=== PATIENT | male | born 1950 | race Caucasian/White ===

== ENCOUNTER 2016-12-25 14:34 | Emergency (ER) | payer MEDICARE, MEDICAID ==
[~2016-12-25] VITALS: Ht 167.6 cm; Wt 87.6 kg
[~2016-12-25 14:34] MED LIST: ALPR.25T; APIX5TAB PO; ASP81CT; CLOP75TA PO; DILT180C PO; GABA100C PO; GLBR5T PO; LIDOCAINE 1% INJ 20 ML (XYLOCAINE) VIAL ONE; LISI-594 PO; LOSA25TA21 PO; MAGN400C PO; MTF500T PO; NTR.4SL SL; PNT40TEC; RNT150T; ROSU5TAB9 PO; SCR1T1; SITA100T PO; TAMS0.4C2 PO
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
[2016-12-25] MEDS ORDERED: TAMS0.4C2 (15:22)
[2016-12-25] MEDS ORDERED: CLOP75TA28 (15:22)
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
[2016-12-25 16:06] LABS: BASOPHILS % (AUTO) 0 % (0-10); EOSINOPHILS # (AUTO) 0.1 10^3/uL (0.0-0.3); EOSINOPHILS % (AUTO) 1 % (0-10); LYMPHOCYTES # (AUTO) 1.8 X 10^3 (1.0-4.0); LYMPHOCYTES % (AUTO) 22 % (12-44); MEAN CORPUSCULAR HEMOGLOBIN 28 PG (25-34); MEAN CORPUSCULAR HGB CONC 34 G/DL (32-36); MEAN CORPUSCULAR VOLUME 83 FL (80-99); MEAN PLATELET VOLUME 11.9 FL (7.4-10.4); MONOCYTES # (AUTO) 0.7 X 10^3 (0.0-1.0); MONOCYTES % (AUTO) 8 % (0-12); NEUTROPHILS # (AUTO) 5.7 X 10^3 (1.8-7.8); NEUTROPHILS % (AUTO) 68 % (42-75); PLATELET COUNT 309 10^3/uL (130-400); RED BLOOD COUNT 4.69 10^6/uL (4.35-5.85); RED CELL DISTRIBUTION WIDTH 13.8 % (10.0-14.5); WHITE BLOOD COUNT 8.3 10^3/uL (4.3-11.0)
[2016-12-25] MEDS ORDERED: AMOX-355 PO (16:07)
[2016-12-25] MEDS ORDERED: HYDROcodone/APAP 5 MG/325 MG (LORTAB) TAB PO ONE (16:30)
[2016-12-25 18:03] VITALS: BP 171/97
--- OUTSIDE RECORDS SUMMARY | 2016-12-27 16:26 | XMS REPORT | Continuity of Care Document ---
Demographics Preferred Language Unknown Marital Status Unknown Lutheran Affiliation Unknown Race Unknown Ethnic Group Unknown Author Author [facility] Address Unknown Phone Unavailable Allergies Medications Problems Date Dx Coded Attending Type Code Diagnosis Diagnosed By 10/31/2012 110.5 DERMATOPHYTOSIS OF THE BODY 10/31/2012 356.9 UNSPECIFIED IDIOPATHIC PERIPHERAL NEUROPATHY Procedures Results Encounters ACCT No. Visit Date/Time Discharge Status Pt. Type Provider Facility Loc./Unit Complaint [id number] 10/31/2012 16:07:00 Document Registration
== END 2016-12-25 18:03 | disposition home or self-care (01) ==
LOC: EDUNIT# 14:34 → ER 14:36
DX: S01.01XA Laceration without foreign body of scalp, initial encounter (principal); I11.9 Hypertensive heart disease without heart failure; I21.3 ST elevation (STEMI) myocardial infarction of unspecified site; I25.10 Atherosclerotic heart disease of native coronary artery without angina pectoris; E11.9 Type 2 diabetes mellitus without complications; F32.9 Major depressive disorder, single episode, unspecified; V49.40XA Driver injured in collision with unspecified motor vehicles in traffic accident, initial encounter; Y92.410 Unspecified street and highway as the place of occurrence of the external cause; Z79.84 Long term (current) use of oral hypoglycemic drugs; Z95.5 Presence of coronary angioplasty implant and graft
CPT/HCPCS: 12015; 13132; 36415; 70450; 71010; 72125; 85025

== ENCOUNTER 2016-12-31 13:00 | Emergency (ER) | payer OTHER, MEDICARE, MEDICAID ==
[~2016-12-31] VITALS: Ht 177.8 cm; Wt 90.7 kg
[~2016-12-31 13:00] MED LIST changes: +AMOX-355 PO; +CLOP75TA28; -LIDOCAINE 1% INJ 20 ML (XYLOCAINE) VIAL ONE; +TAMS0.4C2
[2016-12-31 13:20] VITALS: BP 121/78
--- OUTSIDE RECORDS SUMMARY | 2016-12-31 23:52 | XMS REPORT | Continuity of Care Document ---
Demographics Preferred Language Unknown Marital Status Unknown Sabianist Affiliation Unknown Race Unknown Ethnic Group Unknown Author Author [facility] Address Unknown Phone Unavailable Allergies Medications Problems Date Dx Coded Attending Type Code Diagnosis Diagnosed By 10/31/2012 110.5 DERMATOPHYTOSIS OF THE BODY 10/31/2012 356.9 UNSPECIFIED IDIOPATHIC PERIPHERAL NEUROPATHY Procedures Results Encounters ACCT No. Visit Date/Time Discharge Status Pt. Type Provider Facility Loc./Unit Complaint [id number] 10/31/2012 16:07:00 Document Registration
== END 2016-12-31 13:20 | disposition home or self-care (01) ==
LOC: EDUNIT# 13:00 → ER 13:02
DX: Z48.02 Encounter for removal of sutures (principal)

== ENCOUNTER → 2017-09-16 | Outpatient (CLI) | payer MEDICARE, OTHER ==
[~2017-09-16] MED LIST changes: +ROSU5TAB11 PO; -ROSU5TAB9 PO
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
== END ==
LOC: RAD 08:21
PROVIDERS: ATTEND Surgery
DX: R10.11 Right upper quadrant pain (principal)
CPT/HCPCS: 36415; 76705; 82533; 83835

== ENCOUNTER → 2017-09-25 | Outpatient (CLI) | payer MEDICARE, OTHER | LOC: LAB 15:00 | PROVIDERS: ATTEND Surgery | DX: E27.9 Disorder of adrenal gland, unspecified (principal); I10 Essential (primary) hypertension; R53.83 Other fatigue; R10.11 Right upper quadrant pain; R10.12 Left upper quadrant pain; R10.32 Left lower quadrant pain | CPT/HCPCS: 36415; 82088 ==

== ENCOUNTER → 2017-10-07 | Outpatient (CLI) | payer MEDICARE, OTHER | LOC: PREOP 05:50 | PROVIDERS: ATTEND Surgery | DX: Z01.818 Encounter for other preprocedural examination (principal); Z12.11 Encounter for screening for malignant neoplasm of colon ==

== ENCOUNTER 2017-10-14 08:22 | Day surgery (SDC) | payer MEDICARE, OTHER ==
[~2017-10-14] VITALS: Ht 177.8 cm; Wt 90.8 kg
[2017-10-14] MEDS ORDERED: NS IV 500 ML 500 ML ONE (08:33)
[2017-10-14] MEDS ORDERED: NS IV 500 ML 500 ML IV ONE (08:45)
[2017-10-14] MEDS ORDERED: NS IV 500 ML 500 ML IV SCH (08:45)
[2017-10-14] MEDS ORDERED: fentaNYL INJECTION 100 MCG/2 ML AMP IVP PRN (08:45)
[2017-10-14] MEDS ORDERED: MIDAZOLAM 2 MG/2 ML (VERSED) VIAL IVP PRN (08:45)
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
--- NOTE | 2017-10-14 08:57 | Conscious Sedation/ASA ---
Conscious Sedation Pre-Proced Time Reviewed: 08:57 ASA Class: 2 Airway Mallampati Classification: ([place] appropriate class) I. II. III, IV Lungs Heart ASA score ASA 1: a normal healthy patient ASA 2: a patient with a mild systemic disease (mid diabetes, controlled hypertension, obesity ASA 3: a patient with a severe systemic disease that limits activity (angina , COPD, prior Myocardial infarction) ASA 4: a patient with an incapacitating disease that is a constant threat to life (CHF, renal failure) ASA 5: a moribund patient not expected to survive 24 hrs. (ruptured aneurysm) ASA 6: a declared brain patient whose organs are being harvested. For emergent operations, add the letter E after the classification Grade 2 Sedation Plan: Discussed options with patient/fam Note The patient is an appropriate candidate to undergo the planned procedure, sedation, and anesthesia. The patient immediately re-assessed prior to indication. SILVANA WILSON MD Oct 14, 2017 8:57 am
[2017-10-14] MEDS ORDERED: LOSA50TA36 PO (09:11)
[2017-10-14] MEDS ORDERED: INSU100V5 SQ (09:14)
[2017-10-14] MEDS ORDERED: DILT180C54 PO (09:14)
[2017-10-14] MEDS ORDERED: ASPI-999 PO (09:14)
[2017-10-14] MEDS ORDERED: fentaNYL INJECTION 100 MCG/2 ML AMP ONE ×2 (10:10)
[2017-10-14] MEDS ORDERED: MIDAZOLAM 2 MG/2 ML (VERSED) VIAL ONE ×3 (10:11)
[2017-10-14] MEDS: fentaNYL INJECTION 100 MCG/2 ML AMP IV PRN ×2 (10:22→10:26)
[2017-10-14] MEDS: MIDAZOLAM 2 MG/2 ML (VERSED) VIAL IV PRN ×3 (10:25→10:30)
--- NOTE | 2017-10-14 10:52 | Endo Procedure Record ---
Endo Procedure Report Date of Procedure Last Colonoscopy: No Oct 14, 2017 Surgeon (s) SILVANA WILSON MD Post Procedure/Op Diagnosis Poor bowel prep. Sigmoid diverticulosis Procedure Performed Colonoscopy to cecum Description of Procedure Anesthesia Type: Conscious Sedation Specimen(s) collected/removed none Description of the Procedure Indication for the procedure: This gentleman came in for colonoscopy for screening purposes and to investigate left-sided abdominal pain. Informed consent was obtained after reviewing the procedure in detail. Description of the procedure: He was placed in left lateral decubitus position and his vital signs were monitored. Conscious sedation was achieved using Versed and fentanyl. Digital rectal examination was unremarkable. The colonoscope was then introduced into the rectum and advanced all the way up to the cecum The quality of bowel preparation was rather suboptimal. I was however able to irrigate the mucosa and suction the liquid fecal material, to complete the examination. The scope was then withdrawn slowly and the mucosa examined in a systematic fashion. Finding: Sigmoid diverticulosis No polyps were found He tolerated the procedure well and was taken back to the nursing area in a stable condition. Impression: Screening colonoscopy. No polyps Sigmoid diverticulosis. Copies To: TRENA OCHOA XAVIER M MD Oct 14, 2017 10:52 am
--- NOTE | 2017-10-14 10:53 | Discharge Inst-Simple/Standard ---
Discharge Inst-Standard Discharge Medications New, Converted or Re-Newed RX: Other Patient Instructions/Follow Up Plan of Care/Instructions/FU: Repeat colonoscopy in 10 years Activity as Tolerated: Yes Discharge Diet: No Restrictions SILVANA WILSON MD Oct 14, 2017 10:53 am
[2017-10-14 11:20] VITALS: BP 145/86
[2017-10-14 11:50] VITALS: BP 143/86
[2017-10-14 13:21] VITALS: BP 148/86
[2017-10-14 13:29] VITALS: BP 148/86
== END 2017-10-14 11:55 | disposition home or self-care (01) ==
LOC: ENDO 08:22
PROVIDERS: ATTEND Surgery
DX: Z12.11 Encounter for screening for malignant neoplasm of colon (principal); K57.30 Diverticulosis of large intestine without perforation or abscess without bleeding; I25.10 Atherosclerotic heart disease of native coronary artery without angina pectoris; E78.00 Pure hypercholesterolemia, unspecified; I10 Essential (primary) hypertension; I25.2 Old myocardial infarction; Z95.0 Presence of cardiac pacemaker; Z95.5 Presence of coronary angioplasty implant and graft; F17.210 Nicotine dependence, cigarettes, uncomplicated; K21.9 Gastro-esophageal reflux disease without esophagitis; E11.9 Type 2 diabetes mellitus without complications; Z79.84 Long term (current) use of oral hypoglycemic drugs; Z79.899 Other long term (current) drug therapy

== ENCOUNTER 2022-06-13 12:37 | Inpatient (IN) | payer MEDICARE, OTHER, MEDICAID ==
[~2022-06-13] VITALS: Ht 167.7 cm; Wt 94.3 kg
[~2022-06-13 12:37] MED LIST changes: +ASPI-999 PO; -DILT180C PO; +DILT180C54 PO; +DILT180C85 PO; +INSU100V5 SQ; -LOSA25TA21 PO; +LOSA25TA41 PO; +LOSA50TA63 PO; -ROSU5TAB11 PO; +ROSU5TAB13 PO
[2022-06-13] MEDS ORDERED: ONDANSETRON 4 MG (ZOFRAN) ORAL DISSOLVE TAB PO PRN (14:00)
[2022-06-13] MEDS ORDERED: MELATONIN 3 MG TABLET PO PRN (14:00)
[2022-06-13] MEDS ORDERED: diphenhydrAMINE 25 MG TAB (BENADRYL) PO PRN (14:00)
[2022-06-13] MEDS ORDERED: MILK OF MAGNESIA 400 MG/5 ML 30 ML UDC PO PRN (14:00)
[2022-06-13] MEDS ORDERED: polyethylene glycoL POWDER 17 GM (MIRALAX) PACK PO PRN (14:00)
[2022-06-13] MEDS ORDERED: ONDANSETRON 4 MG/2 ML (SDV) Z0FRAN IV PRN (14:00)
[2022-06-13] MEDS ORDERED: NS IV 1000 ML 1,000 ML IV SCH (14:00)
[2022-06-13] MEDS ORDERED: LACTULOSE SYRUP 10GM/15ML (ENULOSE) 30ML UDC PO PRN (14:00)
[2022-06-13] MEDS ORDERED: diphenhydrAMINE 50 MG/ML INJ (BENADRYL) IVP PRN (14:00)
[2022-06-13] MEDS ORDERED: CALCIUM CARBONATE 500 MG (TUMS) TAB.CHEW PO PRN (14:00)
[2022-06-13] MEDS ORDERED: ANTACID SUSP 30 ML UDC (MYLANTA) PO PRN (14:00)
[2022-06-13] MEDS ORDERED: NIRMATRELVIR/RITONAVIR (PAXLOVID) TABLET PO SCH ×2 (14:00→18:00)
[2022-06-13] MEDS ORDERED: ACETAMINOPHEN 325 MG TABLET PO PRN (14:00)
[2022-06-13] MEDS ORDERED: BISACODYL 10 MG SUPP (DULCOLAX) PR PRN (14:00)
[2022-06-13] MEDS ORDERED: RELABEL FOR HOME USE MC SCH (15:15)
[2022-06-13] MEDS ORDERED: DILT300C51 PO (16:26)
[2022-06-13] MEDS ORDERED: SITA100T12 PO (16:26)
[2022-06-13] MEDS ORDERED: ASPI-999 PO (16:26)
[2022-06-13] MEDS ORDERED: LATA7.5D OU (16:26)
[2022-06-13] MEDS ORDERED: METF-399 PO (16:26)
[2022-06-13] MEDS ORDERED: BRIMON0.2 OD (16:26)
[2022-06-13] MEDS ORDERED: FURO40TA4 PO (16:26)
[2022-06-13] MEDS ORDERED: LOSA100T57 PO (16:26)
[2022-06-13] MEDS ORDERED: ATOR20TA66 PO (16:26)
[2022-06-13] MEDS ORDERED: DORZ10DR22 OU (16:26)
[2022-06-13] MEDS ORDERED: GABA300C PO (16:26)
[2022-06-13] MEDS ORDERED: RIVA20TA PO (16:26)
[2022-06-13] MEDS ORDERED: GLBR5T PO (16:26)
[2022-06-13] MEDS ORDERED: INSU100I29 SQ (16:26)
[2022-06-13] MEDS ORDERED: PANT40TA52 PO (16:26)
[2022-06-13 16:36] VITALS: BP 163/70
--- NOTE | 2022-06-13 16:56 | History & Physical ---
LETTY ALEMAN 06/13/226: History of Present Illness History of Present Illness Reason for visit/HPI Manuel Cochran, goes by Martin, is a 72yo M who was admitted to the [facility] 4th floor 06/13/22 from [facility] with a current chief complaint of malaise/myalgia, sore throat, and back pain. Martin was initially intended to be brought to the inpatient rehab unit for S/P lumbar surgery, but prior to discharge he tested positive for Covid. He was then brought into room 433 to be quarantined, and continually monitored. On talking with patient he was fatigued and oriented x3 but very frustrated, he hasn't had much education and in conversation is mildly obtuse. Multple times in conversation patient appeared to almost fall asleep and start snoring. He doesnt appear to be toxic, and denies any c/o SOB, CP, fevers, chills, or naseua. Date of Admission Jun 13, 2022 at 15:40 I consulted on this patient on 06/13/22 16:40 Attending Physician Dav Cifuentes DO Admitting Physician Admitting Physician: Sherine Ennis DO Attending Physician: Shernie Ennis DO Consult Allergies and Home Medications Allergies Coded Allergies: No Known Drug Allergies (Verified , 01/05/08) Patient Home Medication List Aspirin (Aspirin) 81 Mg Tab.chew, 81 MG PO DAILY, (Reported) Entered as Reported by: MARY WALTER on 06/13/221625 Last Action: Held Atorvastatin Calcium (Atorvastatin Calcium) 20 Mg Tablet, 20 MG PO DAILY, (Reported) Entered as Reported by: MARY WALTER on 06/13/221625 Last Action: Held Brimonidine Tartrate (Brimonidine Tartrate) 0.2 % Btl, 1 DROP OD BID, (Reported) Entered as Reported by: MARY WALTER on 06/13/221625 Last Action: Continued Diltiazem HCl (Diltiazem 24Hr Cd) 300 Mg Cap.er.24h, 300 MG PO DAILY, (Reported) Entered as Reported by: MARY WALTER on 06/13/221625 Last Action: Continued Dorzolamide HCl/Timolol Maleat (Cosopt Eye Drops) 22.3 Mg-6.8 Mg/Ml Drops, 1 DROPS OU BID, (Reported) Entered as Reported by: MARY WALTER on 06/13/221625 Last Action: Continued Furosemide (Furosemide) 40 Mg Tablet, 40 MG PO DAILY, (Reported) Entered as Reported by: MARY WALTER on 06/13/221625 Last Action: Held Gabapentin (Neurontin) 300 Mg Capsule, 300 MG PO BID, (Reported) Entered as Reported by: MARY WALTER on 06/13/221625 Last Action: Continued Glyburide (Glyburide) 5 Mg Tablet, 10 MG PO BID WITH MEALS, (Reported) Entered as Reported by: MARY WALTER on 06/13/221625 Last Action: Held Insulin Detemir (Levemir Flextouch) 100 Unit/Ml (3 Ml) Insuln.pen, 30 UNIT SQ DAILY PRN for HYPERGLYCEMIA, (Reported) Entered as Reported by: MARY WALTER on 06/13/221625 Last Action: Held Latanoprost/Pf (Latanoprost 0.005% Eye Drop) 0.005 % Drops, 1 DROP OU HS, (Reported) Entered as Reported by: MARY WALTER on 06/13/221625 Last Action: Converted Losartan Potassium (Losartan Potassium) 100 Mg Tablet, 100 MG PO DAILY, (Reported) Entered as Reported by: MARY WALTER on 06/13/221625 Last Action: Held Metformin HCl (Metformin HCl) 1,000 Mg Tablet, 1,000 MG PO BID, (Reported) Entered as Reported by: MARY WALTER on 06/13/221625 Last Action: Held Pantoprazole Sodium (Pantoprazole Sodium) 40 Mg Tablet.dr, 40 MG PO BID, (Reported) Entered as Reported by: MARY WALTER on 06/13/221625 Last Action: Continued Rivaroxaban (Xarelto) 20 Mg Tablet, 20 MG PO 1800 W/SUPPER, (Reported) Entered as Reported by: MARY WALTER on 06/13/221625 Last Action: Held Sitagliptin Phosphate (Januvia) 100 Mg Tablet, 100 MG PO DAILY, (Reported) Entered as Reported by: MARY WALTER on 06/13/221625 Last Action: Held Discontinued Medications Aspirin (Aspirin) 81 Mg Tab.chew, 81 MG PO DAILY, (Reported) Discontinued Reason: Duplicate Order Entered as Reported by: ERICKSON Duckworth ELIO on 10/14/17913 Last Action: Discontinued Clopidogrel Bisulfate (Clopidogrel) 75 Mg Tablet, (Reported) Discontinued Reason: Duplicate Order Entered as Reported by: NURIA CHANDLER on 12/25/16 152 Last Action: Discontinued Diltiazem HCl (Cartia Xt) 180 Mg Cap.er.24h, 180 MG PO DAILY, (Reported) Discontinued Reason: Duplicate Order Entered as Reported by: ERICKSON GOMEZBALDO on 10/14/17913 Last Action: Discontinued Insulin Determir (Levemir) 1,000 Units/10 Ml Soln, 10 UNITS SQ DAILY, (Reported) Discontinued Reason: Duplicate Order Entered as Reported by: ERICKSON GOMEZBALDO on 10/14/17913 Last Action: Discontinued Losartan Potassium (Losartan Potassium) 50 Mg Tablet, 50 MG PO DAILY, (Reported) Discontinued Reason: Duplicate Order Entered as Reported by: ERICKSON GOMEZYOSVANY on 10/14/17910 Last Action: Discontinued Metformin Hcl (Metformin 500 Mg) 500 Mg Tablet, 1,000 MG PO BID, (Reported) Discontinued Reason: Duplicate Order Entered as Reported by: ARASH HAGER on 01/05/08 1417 Last Action: Discontinued Pantoprazole Sodium (Protonix) 40 Mg Tablet., (Reported) Discontinued Reason: Duplicate Order Entered as Reported by: ARASH HAGER on 02/03/08 1402 Last Action: Discontinued Sitagliptin Phosphate (Januvia) 100 Mg Tablet, 1 EACH PO DAILY, (Reported) Discontinued Reason: Duplicate Order Entered as Reported by: TERESA JIN on 10/20/12 0909 Last Action: Discontinued Tamsulosin HCl (Tamsulosin HCl) 0.4 Mg Cap.er.24h, (Reported) Discontinued Reason: Duplicate Order Entered as Reported by: NURIA CHANDLER on 12/25/16 152 Last Action: Discontinued Past Mgskhip-Ggxwsi-Oicdrf Hx Patient Social History Marrital Status: single Number of Children: 0 Employed/Student: retired Tobacco Use?: No Smoking Status: Unknown if Ever Smoked Use of E-Cig and/or Vaping dev: No Substance use?: No Alcohol Use?: No Immunizations Up To Date Tetanus Booster (TDap): Less Than 5 Years Hepatitis A: No Hepatitis B: No PED Vaccines UTD: No Seasonal Allergies Seasonal Allergies: No Current Status Primary Language: Hungarian Past Medical History Surgeries: Coronary Stent Currently Using CPAP: No Currently Using BIPAP: No Coronary Artery Disease, Heart Attack, High Cholesterol, Hypertension Sexually Transmitted Disease: No HIV/AIDS: No Prostate Problems Gastroesophageal Reflux Diabetes, Non-Insulin dep Loss of Vision: Denies Depression Blood Disorders: No Adverse Reaction/Blood Tranf: No Family Medical History Cardiovascular disease 19 FATHER G8 BROTHER G8 BROTHER Diabetes mellitus 19 MOTHER Review of Systems Constitutional: see HPI, malaise, weakness EENTM: throat pain Respiratory: no symptoms reported Cardiovascular: no symptoms reported Gastrointestinal: no symptoms reported Genitourinary: no symptoms reported Musculoskeletal: back pain, muscle pain Skin: no symptoms reported Psychiatric/Neurological: No Symptoms Reported Physical Exam Vital Signs Capillary Refill : Height, Weight, BMI Height: 5'10.00" Weight: 200lbs. 1.6oz. [id number]; 28.7 BMI Method:Estimated Respiratory: Chest Non Tender, No Accessory Muscle Use, No Respiratory Distress, Crackles Cardiovascular: Regular Rate, Rhythm, No Gallop, No JVD, No Murmur, Normal Peripheral Pulses Back: Decreased Range of Motion, Vertebral Tenderness Assessment/Plan Assessment and Plan A: Covid infection S/P lumbar surgery back pain malaise/myalgia DM P: Rest/continue monitoring OT/PT therapy Pain regimen serum glucose regulation Clinical Quality Measures DVT/VTE Risk/Contraindication: Contraindications-Pharm: Other *list below* Other: spinal surgery ENNISGILBERT VIEIRAAgustina FIERRO 06/14/22 0456: History of Present Illness History of Present Illness Reason for visit/HPI CC: COVID infection following lumbar spine surgery HPI: This is a patient known to me from [place] who had a slow recovery from L- spine surgery requiring skilled eval which required a COVID swab which was positive so he was moved to [facility] in [facility] for ARU admit. Date of Admission 06/13 Date Seen by a Provider: Jun 13, 2022 Time Seen by a Provider: 16:00 Allergies and Home Medications Allergies Coded Allergies: No Known Drug Allergies (Verified , 01/05/08) Patient Home Medication List Home Medication List Reviewed: Yes Aspirin (Aspirin) 81 Mg Tab.chew, 81 MG PO DAILY, (Reported) Entered as Reported by: MARY WALTER on 06/13/221625 Last Action: Held Atorvastatin Calcium (Atorvastatin Calcium) 20 Mg Tablet, 20 MG PO DAILY, (Reported) Entered as Reported by: MARY WALTER on 06/13/221625 Last Action: Held Brimonidine Tartrate (Brimonidine Tartrate) 0.2 % Btl, 1 DROP OD BID, (Reported) Entered as Reported by: MARY WALTER on 06/13/221625 Last Action: Continued Diltiazem HCl (Diltiazem 24Hr Cd) 300 Mg Cap.er.24h, 300 MG PO DAILY, (Reported) Entered as Reported by: MARY WALTER on 06/13/221625 Last Action: Continued Dorzolamide HCl/Timolol Maleat (Cosopt Eye Drops) 22.3 Mg-6.8 Mg/Ml Drops, 1 DROPS OU BID, (Reported) Entered as Reported by: MARY WALTER on 06/13/221625 Last Action: Continued Furosemide (Furosemide) 40 Mg Tablet, 40 MG PO DAILY, (Reported) Entered as Reported by: MARY WALTER on 06/13/221625 Last Action: Held Gabapentin (Neurontin) 300 Mg Capsule, 300 MG PO BID, (Reported) Entered as Reported by: MARY WALTER on 06/13/221625 Last Action: Continued Glyburide (Glyburide) 5 Mg Tablet, 10 MG PO BID WITH MEALS, (Reported) Entered as Reported by: MARY WALTER on 06/13/221625 Last Action: Held Insulin Detemir (Levemir Flextouch) 100 Unit/Ml (3 Ml) Insuln.pen, 30 UNIT SQ DAILY PRN for HYPERGLYCEMIA, (Reported) Entered as Reported by: MARY WALTER on 06/13/221625 Last Action: Held Latanoprost/Pf (Latanoprost 0.005% Eye Drop) 0.005 % Drops, 1 DROP OU HS, (Reported) Entered as Reported by: MARY WALTER on 06/13/221625 Last Action: Converted Losartan Potassium (Losartan Potassium) 100 Mg Tablet, 100 MG PO DAILY, (Reported) Entered as Reported by: MARY WALTER on 06/13/221625 Last Action: Held Metformin HCl (Metformin HCl) 1,000 Mg Tablet, 1,000 MG PO BID, (Reported) Entered as Reported by: MARY WALTER on 06/13/221625 Last Action: Held Pantoprazole Sodium (Pantoprazole Sodium) 40 Mg Tablet.dr, 40 MG PO BID, (Reported) Entered as Reported by: MARY WALTER on 06/13/221625 Last Action: Continued Rivaroxaban (Xarelto) 20 Mg Tablet, 20 MG PO 1800 W/SUPPER, (Reported) Entered as Reported by: MARY WALTER on 06/13/221625 Last Action: Held Sitagliptin Phosphate (Januvia) 100 Mg Tablet, 100 MG PO DAILY, (Reported) Entered as Reported by: MARY WALTER on 06/13/221625 Last Action: Held Discontinued Medications Aspirin (Aspirin) 81 Mg Tab.chew, 81 MG PO DAILY, (Reported) Discontinued Reason: Duplicate Order Entered as Reported by: ERICKSON BALLARD on 10/14/17913 Last Action: Discontinued Clopidogrel Bisulfate (Clopidogrel) 75 Mg Tablet, (Reported) Discontinued Reason: Duplicate Order Entered as Reported by: NURIA CHANDLER on 12/25/161521 Last Action: Discontinued Diltiazem HCl (Cartia Xt) 180 Mg Cap.er.24h, 180 MG PO DAILY, (Reported) Discontinued Reason: Duplicate Order Entered as Reported by: ERICKSON BALLARD on 10/14/17913 Last Action: Discontinued Insulin Determir (Levemir) 1,000 Units/10 Ml Soln, 10 UNITS SQ DAILY, (Reported) Discontinued Reason: Duplicate Order Entered as Reported by: ERICKSON BALLARD on 10/14/17913 Last Action: Discontinued Losartan Potassium (Losartan Potassium) 50 Mg Tablet, 50 MG PO DAILY, (Reported) Discontinued Reason: Duplicate Order Entered as Reported by: ERICKSON BALLARD on 10/14/17910 Last Action: Discontinued Metformin Hcl (Metformin 500 Mg) 500 Mg Tablet, 1,000 MG PO BID, (Reported) Discontinued Reason: Duplicate Order Entered as Reported by: ARASH HAGER on 01/05/08 1417 Last Action: Discontinued Pantoprazole Sodium (Protonix) 40 Mg Tablet., (Reported) Discontinued Reason: Duplicate Order Entered as Reported by: ARASH HAGER on 02/03/08 1402 Last Action: Discontinued Sitagliptin Phosphate (Januvia) 100 Mg Tablet, 1 EACH PO DAILY, (Reported) Discontinued Reason: Duplicate Order Entered as Reported by: TERESA JIN on 10/20/12 0909 Last Action: Discontinued Tamsulosin HCl (Tamsulosin HCl) 0.4 Mg Cap.er.24h, (Reported) Discontinued Reason: Duplicate Order Entered as Reported by: NURIA CHANDLER on 12/25/16 1522 Last Action: Discontinued Past Vvjdeuv-Gxyuxl-Mpqdty Hx Patient Social History Marrital Status: cohabiting Employed/Student: retired Tobacco Use?: No Use of E-Cig and/or Vaping dev: No Substance use?: No Past Medical History Surgeries: Orthopedic High Cholesterol, Hypertension Diabetes, Insulin dep Family Medical History Cardiovascular disease 19 FATHER G8 BROTHER G8 BROTHER Diabetes mellitus 19 MOTHER Review of Systems Constitutional: see HPI, malaise, weakness EENTM: no symptoms reported Respiratory: no symptoms reported Cardiovascular: no symptoms reported Gastrointestinal: no symptoms reported Genitourinary: no symptoms reported Musculoskeletal: back pain Skin: no symptoms reported Psychiatric/Neurological: No Symptoms Reported All Other Systems Reviewed Negative Unless Noted: Yes Physical Exam General Appearance: No Apparent Distress, WD/WN, Chronically ill, Obese Eyes: Bilateral Eye Normal Inspection, Bilateral Eye PERRL, Bilateral Eye EOMI HEENT: PERRL/EOMI, Normal ENT Inspection, Pharynx Normal Neck: Full Range of Motion, Normal Inspection, Non Tender, Supple, Carotid Bruit Respiratory: Chest Non Tender, Lungs Clear, Normal Breath Sounds, No Accessory Muscle Use, No Respiratory Distress Cardiovascular: Regular Rate, Rhythm, No Edema, No Gallop, No JVD, No Murmur, Normal Peripheral Pulses Gastrointestinal: Normal Bowel Sounds, No Organomegaly, No Pulsatile Mass, Non Tender, Soft Back: Normal Inspection, Decreased Range of Motion, Muscle Spasm, Vertebral Tenderness Extremity: Normal Capillary Refill, Normal Inspection, Normal Range of Motion, Non Tender, No Calf Tenderness, No Pedal Edema Neurologic/Psychiatric: Alert, Oriented x3, medical doctor md II-XII Norm as Tested, Abnormal Gait, Depressed Affect, Motor Weakness (generalized) Skin: Normal Color, Warm/Dry Lymphatic: No Adenopathy Assessment/Plan Assessment and Plan Assessment: COVID infection Pneumonia bacterial type with elevated PCT s/p lumbar spine surgery DM with variable control Anemia Plan: IV abx DM Problems: (1) COVID Admission Diagnosis Admission Status: Inpatient Order (span 2 midnights) Reason for Inpatient Admission: covid with pNA Supervisory-Addendum Brief Verification & Attestation Participated in pt care: history, MDM, physical Personally performed: exam, history, MDM, supervision of care Care discussed with: Medical Student Procedures: n/a Results interpretation: Verified all documentation Verification and Attestation of Medical Student E/M Service A medical student performed and documented this service in my presence. I reviewed and verified all information documented by the medical student and made modifications to such information, when appropriate. I personally performed the physical exam and medical decision making. Sherine Ennis, Jun 14, 2022,04:56 LETTY ALEMAN Jun 13, 2022 16:56 SHERINE ENNIS DO Jun 14, 2022 04:56
--- NOTE | 2022-06-13 17:15 | Diagnostic Imaging Report ---
INDICATION: 72-year-old male with shortness of breath, inpatient, COVID pneumonia. COMPARISONS: 12/25/2016 FINDINGS: Single chest shows the cardiac contour to be upper limits of normal. There is a moderate central venous congestion. Few scattered 5 lobe alveolar infiltrates are seen but no confluent consolidations. There is no effusion or pneumothorax. Is a dual-chamber left-sided pacer. Soft tissues and bony thorax unremarkable. IMPRESSION: 1. Heart size upper limits of normal to borderline cardiomegaly with mild central venous congestion suggesting element of failure. 2. Few scattered 5 lobe alveolar infiltrates are seen but no confluent consolidations. There is no effusion or pneumothorax. 2. There is a dual-chamber left-sided pacer noted stable. Dictated by: Dictated on workstation # [id number]
[2022-06-13] MEDS: inSUlin ASPART (NovoLOG) 1 UNIT/0.01 ML (CHARGE PER UNIT) SC SCH ×2 (17:18→21:32)
[2022-06-13] MEDS ORDERED: amLODIPine 5 MG (NORVASC) TAB PO ONE (17:30)
[2022-06-13] MEDS: NIRMATRELVIR/RITONAVIR (PAXLOVID) TABLET PO SCH (17:40)
--- NOTE | 2022-06-13 18:09 | Diagnostic Imaging Report ---
INDICATION: PICC line placement. COMPARISON: Imaging from the same date TECHNIQUE: 2 radiographs of the chest dated 06/13/2022. FINDINGS: Interval placement of a left-sided PICC line. The distal tip is difficult to visualize secondary to overlying pacer leads and patient body habitus. The distal tip likely terminates near the cavoatrial junction. No pneumothorax. The cardiac silhouette is enlarged. Mild central pulmonary vascular congestion is again identified, similar to the prior examination. Lungs appear stable from the prior examination. No significant pleural effusion. No pneumothorax. No acute osseous abnormality. IMPRESSION: Interval placement of left-sided PICC line with the distal tip difficult to visualize though likely overlying the cavoatrial junction without pneumothorax. Persistent cardiomegaly with central pulmonary vascular congestion. Remainder of the examination appears similar. Dictated by: Dictated on workstation # [id number]
[2022-06-13 18:29] LABS: ABG BASE EXCESS -5.6 MMOL/L (-2.5-2.5); ABG OXYGEN SATURATION 91 % (94-100); ABG PCO2 35 MMHG (35-45); ABG PH 7.36 (7.37-7.43); ABG PO2 57 MMHG (79-93); ABG TCO2 20.2 MMOL/L (21.0-31.0)
[2022-06-13 18:30] LABS: BASOPHILS % (AUTO) 0 % (0-10); EOSINOPHILS # (AUTO) 0.1 10^3/uL (0.0-0.3); EOSINOPHILS % (AUTO) 1 % (0-10); HEMATOCRIT 28 % (40-54); HEMOGLOBIN 8.8 g/dL (13.3-17.7); LYMPHOCYTES # (AUTO) 1.5 10^3/uL (1.0-4.0); LYMPHOCYTES % (AUTO) 10 % (12-44); MEAN CORPUSCULAR HEMOGLOBIN 29 pg (25-34); MEAN CORPUSCULAR HGB CONC 32 g/dL (32-36); MEAN CORPUSCULAR VOLUME 91 fL (80-99); MEAN PLATELET VOLUME 11.9 fL (9.0-12.2); MONOCYTES # (AUTO) 1.7 10^3/uL (0.0-1.0); MONOCYTES % (AUTO) 12 % (0-12); NEUTROPHILS % (AUTO) 77 % (42-75); PLATELET COUNT 244 10^3/uL (130-400); WHITE BLOOD COUNT 14.3 10^3/uL (4.3-11.0)
[2022-06-13 18:34] LABS: ALLENS TEST YES-POS; INSPIRED O2 RA; VENTILATOR NO
[2022-06-13 18:38] LABS: ALBUMIN 2.9 GM/DL (3.2-4.5)
[2022-06-13 18:39] LABS: CHLORIDE 109 MMOL/L (98-107); POTASSIUM 4.7 MMOL/L (3.6-5.0); SODIUM 137 MMOL/L (135-145)
[2022-06-13 18:40] LABS: CALCIUM 8.2 MG/DL (8.5-10.1)
[2022-06-13 18:41] LABS: GLUCOSE 65 MG/DL (70-105); TOTAL PROTEIN 6.2 GM/DL (6.4-8.2)
[2022-06-13 18:42] LABS: CARBON DIOXIDE 21 MMOL/L (21-32)
[2022-06-13 18:43] LABS: BILIRUBIN,TOTAL 0.2 MG/DL (0.1-1.0)
[2022-06-13 18:44] LABS: ALKALINE PHOSPHATASE 63 U/L (40-136)
[2022-06-13 18:45] LABS: CREATININE SERUM 2.18 MG/DL (0.60-1.30); GFR ESTIMATED 32
[2022-06-13 18:46] LABS: BUN/CREATININE RATIO 20
[2022-06-13 18:47] LABS: ALANINE AMINOTRANSFERASE < 6 U/L (0-55)
[2022-06-13 19:24] LABS: BILIRUBIN,URINE NEGATIVE (NEGATIVE); CLARITY,URINE CLEAR; COLOR,URINE YELLOW; GLUCOSE, URINE (UA) NEGATIVE (NEGATIVE); KETONES,URINE NEGATIVE (NEGATIVE); LEUKOCYTE ESTERASE ,URINE NEGATIVE (NEGATIVE); NITRITE,URINE NEGATIVE (NEGATIVE); PH,URINE 5.5 (5-9); PROTEIN,URINE 1+ (NEGATIVE)
[2022-06-13 19:32] LABS: BACTERIA,URINE FEW /HPF; HYALINE CASTS, URINE 0-2 /LPF; WBC,URINE RARE /HPF
[2022-06-13 20:00] VITALS: BP 172/66
[2022-06-13] MEDS ORDERED: NON-FORMULARY MEDICATION 1 EA EA (Latanoprost/Pf (Latanoprost 0.005% Eye Drop) 1 DROP) OU SCH (21:00)
[2022-06-13] MEDS ORDERED: cloNIDine 0.1 MG (CATAPRES) TAB PO PRN (21:30)
[2022-06-13] MEDS ORDERED: DEXTROSE 50% 50 ML (IMS) SYR IV PRN (21:30)
[2022-06-13] MEDS ORDERED: D5 NS 1000 ML IV SOLUTION 1,000 ML IV ONE (21:36)
[2022-06-13] MEDS: D5 NS 1000 ML IV SOLUTION 1,000 ML IV SCH (21:45)
[2022-06-13] MEDS: DOXYCYCLINE INJECTION 100 MG in NS (IVPB) 100 ML IV SCH (21:47)
[2022-06-13] MEDS: BRIMONIDINE 0.2% (ALPHAGAN) OPHTH SOLN 5 ML BTL OD SCH (21:48)
[2022-06-13] MEDS: DOCUSATE SODIUM 100 MG (COLACE) CAP PO SCH (21:48)
[2022-06-13] MEDS: DORZOLAMIDE/TIMOLOL (COSOPT) 2-0.68% 10 ML BTL OU SCH (21:48)
[2022-06-13] MEDS: LATANOPROST 0.005% (XALATAN) OPHTH SOLN 2.5 ML OU SCH (21:48)
[2022-06-13] MEDS: SENNOSIDES 8.6 MG (SENOKOT) TAB PO SCH (21:48)
[2022-06-13] MEDS: PANTOPRAZOLE 40 MG (PROTONIX) TAB PO SCH (21:48)
[2022-06-13] MEDS: GABAPENTIN 300 MG (NEURONTIN) CAP PO SCH (21:48)
[2022-06-13] MEDS: RT-ALBUTEROL HFA 8.5 GM INHALER IH SCH (22:47)
[2022-06-14] VITALS: BP 166/69
[2022-06-14] MEDS: CEFEPIME INJECTION 1,000 MG in NS (IVPB) 50 ML IV SCH ×4 (00:16→22:10)
[2022-06-14] MEDS: RT-ALBUTEROL HFA 8.5 GM INHALER IH SCH ×4 (03:21→22:25)
[2022-06-14 04:00] VITALS: BP 169/68
[2022-06-14] MEDS: NIRMATRELVIR/RITONAVIR (PAXLOVID) TABLET PO SCH ×2 (05:27→17:31)
[2022-06-14 05:34] LABS: BASOPHILS % (AUTO) 0 % (0-10); EOSINOPHILS # (AUTO) 0.1 10^3/uL (0.0-0.3); EOSINOPHILS % (AUTO) 1 % (0-10); HEMATOCRIT 25 % (40-54); HEMOGLOBIN 8.1 g/dL (13.3-17.7); LYMPHOCYTES # (AUTO) 0.6 10^3/uL (1.0-4.0); LYMPHOCYTES % (AUTO) 5 % (12-44); MEAN CORPUSCULAR HEMOGLOBIN 29 pg (25-34); MEAN CORPUSCULAR HGB CONC 32 g/dL (32-36); MEAN CORPUSCULAR VOLUME 91 fL (80-99); MEAN PLATELET VOLUME 11.6 fL (9.0-12.2); MONOCYTES # (AUTO) 1.3 10^3/uL (0.0-1.0); MONOCYTES % (AUTO) 10 % (0-12); NEUTROPHILS # (AUTO) 10.8 10^3/uL (1.8-7.8); NEUTROPHILS % (AUTO) 84 % (42-75); PLATELET COUNT 194 10^3/uL (130-400); WHITE BLOOD COUNT 12.9 10^3/uL (4.3-11.0)
[2022-06-14 05:52] LABS: ALBUMIN 2.6 GM/DL (3.2-4.5); CHLORIDE 117 MMOL/L (98-107); POTASSIUM 4.1 MMOL/L (3.6-5.0); SODIUM 137 MMOL/L (135-145)
[2022-06-14 05:53] LABS: CALCIUM 7.5 MG/DL (8.5-10.1)
[2022-06-14 05:55] LABS: GLUCOSE 160 MG/DL (70-105); TOTAL PROTEIN 5.7 GM/DL (6.4-8.2)
[2022-06-14 05:56] LABS: CARBON DIOXIDE 17 MMOL/L (21-32)
[2022-06-14 05:57] LABS: BILIRUBIN,TOTAL 0.3 MG/DL (0.1-1.0)
[2022-06-14 05:58] LABS: ALKALINE PHOSPHATASE 52 U/L (40-136); CREATININE SERUM 2.08 MG/DL (0.60-1.30); GFR ESTIMATED 34
[2022-06-14 05:59] LABS: BUN/CREATININE RATIO 19
[2022-06-14 06:01] LABS: ALANINE AMINOTRANSFERASE < 6 U/L (0-55)
[2022-06-14 06:02] LABS: LYMPHOCYTES % (MANUAL) 5 %; MONOCYTES % (MANUAL) 5 %; NEUTROPHILS % (MANUAL) 90 %
[2022-06-14 06:03] LABS: ELLIPT/OVALOCYTES SLIGHT
[2022-06-14] MEDS: inSUlin ASPART (NovoLOG) 1 UNIT/0.01 ML (CHARGE PER UNIT) SC SCH ×6 (06:03→20:56)
[2022-06-14] MEDS: amLODIPine 5 MG (NORVASC) TAB PO SCH ×2 (06:45→09:17)
[2022-06-14 08:01] VITALS: BP 171/67
[2022-06-14] MEDS ORDERED: amLODIPine 5 MG (NORVASC) TAB PO SCH (09:00)
[2022-06-14] MEDS: GABAPENTIN 300 MG (NEURONTIN) CAP PO SCH ×2 (09:17→20:54)
[2022-06-14] MEDS: PANTOPRAZOLE 40 MG (PROTONIX) TAB PO SCH ×2 (09:17→20:54)
[2022-06-14] MEDS: DOCUSATE SODIUM 100 MG (COLACE) CAP PO SCH ×2 (09:17→20:56)
[2022-06-14] MEDS: SENNOSIDES 8.6 MG (SENOKOT) TAB PO SCH ×2 (09:17→20:56)
[2022-06-14] MEDS: DOXYCYCLINE INJECTION 100 MG in NS (IVPB) 100 ML IV SCH ×2 (09:17→20:54)
[2022-06-14] MEDS: DORZOLAMIDE/TIMOLOL (COSOPT) 2-0.68% 10 ML BTL OU SCH ×2 (09:46→20:57)
[2022-06-14] MEDS: BRIMONIDINE 0.2% (ALPHAGAN) OPHTH SOLN 5 ML BTL OD SCH ×2 (09:46→20:57)
--- NOTE | 2022-06-14 10:57 | Consultation-Cardiology ---
HPI-Cardiology Cardiology Consultation: Date of Consultation 06/14/22 Date of Admission 06/13/22 Attending Physician Dav Cifuentes DO Admitting Physician Admitting Physician: Sherine Barriga DO Attending Physician: Sherine Barriga DO Consulting Physician MANNIE VIVAR JR, MD HPI: Time Seen by a Provider: 10:51 Chief Complaint: REASON FOR CONSULTATION: History of coronary artery disease, atrial fibrillation and pacemaker. I had the pleasure of seeing Manuel on the medical/surgical unit at [facility] in [place], [place] today. He was transferred to our hospital for [facility] following lumbar disc surgery but he tested positive for COVID at the outside facility so he was sent to our inpatient unit. The patient reports that he cannot remember anything. I obtained the majority of the history from the outside records. He states that he sees a trim line worker in [place] but he does not know the name or where this person comes from. He denies chest discomfort, dyspnea at rest, paroxysmal nocturnal dyspnea, orthopnea, palpitations, lightheadedness, syncope, or ankle edema. However, because of his memory loss, his answers may not be completely reliable. Because of his cardiac history, a cardiology consultation was requested. Certain portions of this document may have been dictated utilizing voice recognition technology. Inherent to this technology, typographical and grammatical errors may exist. As much as I am diligent to identify and correct these mistakes, some errors may remain in the document. Review of Systems-Cardiology Review of Systems Other comments Review of 10 organ systems is as per the history of present illness, otherwise negative. However, as above, due to his short-term memory loss, his answers may not be reliable. All Other Systems Reviewed Negative Unless Noted: Yes OID-Feyecl-Ntfhyc Hx Patient Social History Marrital Status: cohabiting Number of Children: 0 Employed/Student: retired Smoking Status: Unknown if Ever Smoked Have you traveled recently?: No Alcohol Use?: No Pt feels they are or have been: No Immunizations Up To Date Tetanus Booster (TDap): Less than 5yrs Date of Influenza Vaccine: Apr 07, 2022 Past Medical History PMH As described under Assessment. Family Medical History Family History: Cardiovascular disease 19 FATHER G8 BROTHER G8 BROTHER Diabetes mellitus 19 MOTHER Allergies and Home Medications Allergies Coded Allergies: No Known Drug Allergies (Verified , 01/05/08) Patient Home Medication List Home Medication List Reviewed: Yes Aspirin (Aspirin) 81 Mg Tab.chew, 81 MG PO DAILY, (Reported) Entered as Reported by: MARY WALTER on 06/13/221625 Last Action: Held Atorvastatin Calcium (Atorvastatin Calcium) 20 Mg Tablet, 20 MG PO DAILY, (Reported) Entered as Reported by: MARY WALTER on 06/13/221625 Last Action: Held Brimonidine Tartrate (Brimonidine Tartrate) 0.2 % Btl, 1 DROP OD BID, (Reported) Entered as Reported by: MARY WALTER on 06/13/221625 Last Action: Continued Diltiazem HCl (Diltiazem 24Hr Cd) 300 Mg Cap.er.24h, 300 MG PO DAILY, (Reported) Entered as Reported by: MARY WALTER on 06/13/221625 Last Action: Continued Dorzolamide HCl/Timolol Maleat (Cosopt Eye Drops) 22.3 Mg-6.8 Mg/Ml Drops, 1 DROPS OU BID, (Reported) Entered as Reported by: MARY WALTER on 06/13/221625 Last Action: Continued Furosemide (Furosemide) 40 Mg Tablet, 40 MG PO DAILY, (Reported) Entered as Reported by: MARY WALTER on 06/13/221625 Last Action: Held Gabapentin (Neurontin) 300 Mg Capsule, 300 MG PO BID, (Reported) Entered as Reported by: MARY WALTER on 06/13/221625 Last Action: Continued Glyburide (Glyburide) 5 Mg Tablet, 10 MG PO BID WITH MEALS, (Reported) Entered as Reported by: MARY WALTER on 06/13/221625 Last Action: Held Insulin Detemir (Levemir Flextouch) 100 Unit/Ml (3 Ml) Insuln.pen, 30 UNIT SQ DAILY PRN for HYPERGLYCEMIA, (Reported) Entered as Reported by: MARY WALTER on 06/13/221625 Last Action: Held Latanoprost/Pf (Latanoprost 0.005% Eye Drop) 0.005 % Drops, 1 DROP OU HS, (Reported) Entered as Reported by: MARY WALTER on 06/13/221625 Last Action: Converted Losartan Potassium (Losartan Potassium) 100 Mg Tablet, 100 MG PO DAILY, (Rep orted) Entered as Reported by: MARY WALTER on 06/13/221625 Last Action: Held Metformin HCl (Metformin HCl) 1,000 Mg Tablet, 1,000 MG PO BID, (Reported) Entered as Reported by: MARY WALTER on 06/13/221625 Last Action: Held Pantoprazole Sodium (Pantoprazole Sodium) 40 Mg Tablet.dr, 40 MG PO BID, (Reported) Entered as Reported by: MARY WALTER on 06/13/221625 Last Action: Continued Rivaroxaban (Xarelto) 20 Mg Tablet, 20 MG PO 1800 W/SUPPER, (Reported) Entered as Reported by: MARY WALTER on 06/13/221625 Last Action: Held Sitagliptin Phosphate (Januvia) 100 Mg Tablet, 100 MG PO DAILY, (Reported) Entered as Reported by: MARY WALTER on 06/13/221625 Last Action: Held Discontinued Medications Aspirin (Aspirin) 81 Mg Tab.chew, 81 MG PO DAILY, (Reported) Discontinued Reason: Duplicate Order Entered as Reported by: ERICKSON BALLARD on 10/14/17913 Last Action: Discontinued Clopidogrel Bisulfate (Clopidogrel) 75 Mg Tablet, (Reported) Discontinued Reason: Duplicate Order Entered as Reported by: NURIA CHANDLER on 12/25/16 152 Last Action: Discontinued Diltiazem HCl (Cartia Xt) 180 Mg Cap.er.24h, 180 MG PO DAILY, (Reported) Discontinued Reason: Duplicate Order Entered as Reported by: ERICKSON BALLARD on 10/14/17913 Last Action: Discontinued Insulin Determir (Levemir) 1,000 Units/10 Ml Soln, 10 UNITS SQ DAILY, (Reported) Discontinued Reason: Duplicate Order Entered as Reported by: ERICKSON BALLARD on 10/14/17913 Last Action: Discontinued Losartan Potassium (Losartan Potassium) 50 Mg Tablet, 50 MG PO DAILY, (Reported) Discontinued Reason: Duplicate Order Entered as Reported by: ERICKSON BALLARD on 10/14/17910 Last Action: Discontinued Metformin Hcl (Metformin 500 Mg) 500 Mg Tablet, 1,000 MG PO BID, (Reported) Discontinued Reason: Duplicate Order Entered as Reported by: ARASH HAGER on 01/05/08 1417 Last Action: Discontinued Pantoprazole Sodium (Protonix) 40 Mg Tablet., (Reported) Discontinued Reason: Duplicate Order Entered as Reported by: ARASH HAGER on 02/03/08 1402 Last Action: Discontinued Sitagliptin Phosphate (Januvia) 100 Mg Tablet, 1 EACH PO DAILY, (Reported) Discontinued Reason: Duplicate Order Entered as Reported by: TERESA JIN on 10/20/12 0909 Last Action: Discontinued Tamsulosin HCl (Tamsulosin HCl) 0.4 Mg Cap.er.24h, (Reported) Discontinued Reason: Duplicate Order Entered as Reported by: NURIA CHANDLER on 12/25/16 1522 Last Action: Discontinued Exam Vital Signs Vital Signs Date Time Temp Pulse Resp B/P (MAP) Pulse Ox O2 Delivery O2 Flow Rate FiO2 06/14/22 11:14 36.4 64 18 171/67 (101) 97 06/14/22 09:05 Room Air 0.00 Physical Exam Due to the patient's COVID status, I spoke with the patient from the doorway. General: The patient is breathing spontaneously. HENT: Normocephalic. Atraumatic. Skin: There is no pallor. Neurologic: Oriented to person only. Cranial nerves III through XII grossly intact. Moving all 4 extremities. Psychiatric: Appears cooperative but with obvious short-term memory loss. Labs Laboratory Tests Test 06/13/22 17:01 06/13/22 17:56 06/13/22 18:11 06/13/22 18:15 Range/Units Glucometer 74 70-110 MG/DL Urine Color YELLOW Urine Clarity CLEAR Urine pH 5.5 5-9 Urine Specific [place] 1.020 1.016-1.022 Urine Protein 1+ H NEGATIVE Urine Glucose (UA) NEGATIVE NEGATIVE Urine Ketones NEGATIVE NEGATIVE Urine Nitrite NEGATIVE NEGATIVE Urine Bilirubin NEGATIVE NEGATIVE Urine Urobilinogen 0.2 < = 1.0 MG/DL Urine Leukocyte Esterase NEGATIVE NEGATIVE Urine RBC (Auto) TRACE-I H NEGATIVE Urine RBC NONE /HPF Urine WBC RARE /HPF Urine Squamous Epithelial Cells NONE /HPF Urine Crystals NONE /LPF Urine Bacteria FEW H /HPF Urine Casts PRESENT /LPF Urine Hyaline Casts 0-2 H /LPF Urine Mucus NEGATIVE /LPF Urine Culture Indicated YES White Blood Count 14.3 H 4.3-11.0 10^3/uL Red Blood Count 3.04 L 4.30-5.52 10^6/uL Hemoglobin 8.8 L 13.3-17.7 g/dL Hematocrit 28 L 40-54 % Mean Corpuscular Volume 91 80-99 fL Mean Corpuscular Hemoglobin 29 25-34 pg Mean Corpuscular Hemoglobin Concent 32 32-36 g/dL Red Cell Distribution Width 14.3 10.0-14.5 % Platelet Count 244 130-400 10^3/uL Mean Platelet Volume 11.9 9.0-12.2 fL Immature Granulocyte % (Auto) 0 % Neutrophils (%) (Auto) 77 H 42-75 % Lymphocytes (%) (Auto) 10 L 12-44 % Monocytes (%) (Auto) 12 0-12 % Eosinophils (%) (Auto) 1 0-10 % Basophils (%) (Auto) 0 0-10 % Neutrophils # (Auto) 11.0 H 1.8-7.8 10^3/uL Lymphocytes # (Auto) 1.5 1.0-4.0 10^3/uL Monocytes # (Auto) 1.7 H 0.0-1.0 10^3/uL Eosinophils # (Auto) 0.1 0.0-0.3 10^3/uL Basophils # (Auto) 0.0 0.0-0.1 10^3/uL Immature Granulocyte # (Auto) 0.1 0.0-0.1 10^3/uL Sodium Level 137 135-145 MMOL/L Potassium Level 4.7 3.6-5.0 MMOL/L Chloride Level 109 H 98-107 MMOL/L Carbon Dioxide Level 21 21-32 MMOL/L Anion Gap 7 5-14 MMOL/L Blood Urea Nitrogen 44 H 7-18 MG/DL Creatinine 2.18 H 0.60-1.30 MG/DL Estimat Glomerular Filtration Rate 32 BUN/Creatinine Ratio 20 Glucose Level 65 L 70-105 MG/DL Lactic Acid Level 1.08 0.50-2.00 MMOL/L Calcium Level 8.2 L 8.5-10.1 MG/DL Corrected Calcium 9.1 8.5-10.1 MG/DL Total Bilirubin 0.2 0.1-1.0 MG/DL Aspartate Amino Transf (AST/SGOT) 18 5-34 U/L Alanine Aminotransferase (ALT/SGPT) < 6 0-55 U/L Alkaline Phosphatase 63 40-136 U/L B-Type Natriuretic Peptide 183.3 H <100.0 PG/ML Total Protein 6.2 L 6.4-8.2 GM/DL Albumin 2.9 L 3.2-4.5 GM/DL Procalcitonin 0.32 H <0.10 NG/ML Blood Gas Puncture Site RR Blood Gas Patient Temperature 36.0 Arterial Blood pH 7.36 L 7.37-7.43 Arterial Blood Partial Pressure CO2 35 35-45 MMHG Arterial Blood Partial Pressure O2 57 L 79-93 MMHG Arterial Blood HCO3 19 L 23-27 MMOL/L Arterial Blood Total CO2 20.2 L 21.0-31.0 MMOL/L Arterial Blood Oxygen Saturation 91 L 94-100 % Arterial Blood Base Excess -5.6 L -2.5-2.5 MMOL/L Carlo Test YES-POS Blood Gas Ventilator Setting NO Blood Gas Inspired Oxygen RA Test 06/13/22 19:40 06/13/22 20:51 06/13/22 21:58 06/13/22 22:54 Range/Units Influenza Type A Antigen NEGATIVE NEGATIVE Influenza Type B Antigen NEGATIVE NEGATIVE Glucometer 64 L 54 *L 132 H 70-110 MG/DL Test 06/14/22 00:33 06/14/22 05:20 06/14/22 10:36 06/14/22 11:13 Range/Units White Blood Count 12.9 H 4.3-11.0 10^3/uL Red Blood Count 2.80 L 4.30-5.52 10^6/uL Hemoglobin 8.1 L 13.3-17.7 g/dL Hematocrit 25 L 40-54 % Mean Corpuscular Volume 91 80-99 fL Mean Corpuscular Hemoglobin 29 25-34 pg Mean Corpuscular Hemoglobin Concent 32 32-36 g/dL Red Cell Distribution Width 14.1 10.0-14.5 % Platelet Count 194 130-400 10^3/uL Mean Platelet Volume 11.6 9.0-12.2 fL Immature Granulocyte % (Auto) 1 % Neutrophils (%) (Auto) 84 H 42-75 % Lymphocytes (%) (Auto) 5 L 12-44 % Monocytes (%) (Auto) 10 0-12 % Eosinophils (%) (Auto) 1 0-10 % Basophils (%) (Auto) 0 0-10 % Neutrophils # (Auto) 10.8 H 1.8-7.8 10^3/uL Lymphocytes # (Auto) 0.6 L 1.0-4.0 10^3/uL Monocytes # (Auto) 1.3 H 0.0-1.0 10^3/uL Eosinophils # (Auto) 0.1 0.0-0.3 10^3/uL Basophils # (Auto) 0.0 0.0-0.1 10^3/uL Immature Granulocyte # (Auto) 0.1 0.0-0.1 10^3/uL Neutrophils % (Manual) 90 % Lymphocytes % (Manual) 5 % Monocytes % (Manual) 5 % Basophilic Stippling SLIGHT Elliptocytes SLIGHT Sodium Level 137 135-145 MMOL/L Potassium Level 4.1 3.6-5.0 MMOL/L Chloride Level 117 H 98-107 MMOL/L Carbon Dioxide Level 17 L 21-32 MMOL/L Anion Gap 3 L 5-14 MMOL/L Blood Urea Nitrogen 39 H 7-18 MG/DL Creatinine 2.08 H 0.60-1.30 MG/DL Estimat Glomerular Filtration Rate 34 BUN/Creatinine Ratio 19 Glucose Level 160 H 70-105 MG/DL Calcium Level 7.5 L 8.5-10.1 MG/DL Corrected Calcium 8.6 8.5-10.1 MG/DL Total Bilirubin 0.3 0.1-1.0 MG/DL Aspartate Amino Transf (AST/SGOT) 17 5-34 U/L Alanine Aminotransferase (ALT/SGPT) < 6 0-55 U/L Alkaline Phosphatase 52 40-136 U/L Total Protein 5.7 L 6.4-8.2 GM/DL Albumin 2.6 L 3.2-4.5 GM/DL Glucometer 213 H 70-110 MG/DL ECG Impression ECG Comment Probable underlying atrial fibrillation with demand ventricular pacing. Diagnosis/Problems Diagnosis/Problems (1) Paroxysmal atrial fibrillation Assessment & Plan: Based upon the outside records, his medication list and his electrocardiogram, it appears as though he has a history of atrial fibrillation. Unknown if this is paroxysmal, persistent or permanent. It seems as though he was taking rivaroxaban at home. I will restart the rivaroxaban but I will reduce the dose to 15 mg daily due to his GFR less than 50. The GFR is a rough approximation of the creatinine clearance. 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 (2) Coronary artery disease without angina pectoris Assessment & Plan: He also has an apparent history of coronary artery disease and there was some mention in the outside notes of an acute ST elevation myocardial infarction at some point in the past. It appears as though he had been getting aspirin, clopidogrel and rivaroxaban at the outside hospital. I would suggest we stop aspirin and change this over to clopidogrel with rivaroxaban. I will restart his statin medication. It appears as though he was taking diltiazem at home and not a beta-patricia. (3) Primary hypertension Assessment & Plan: Continue diltiazem which she was taking at home. The hospitalist also ordered amlodipine. He was taking losartan at home but this is currently on hold, presumably due to the possible acute kidney injury on chronic kidney disease. (4) Mixed hyperlipidemia Assessment & Plan: Continue atorvastatin. (5) Cardiac pacemaker in situ Assessment & Plan: He has a dual-chamber pacemaker in place as identified on his chest x-ray. I reviewed the images myself. Dandy Tender unknown. As above, I requested a copy of his most recent cardiology note from his regular outpatient primary care provider. (6) Stage 3b chronic kidney disease Assessment & Plan: His most recent blood work in our hospital was from 2017 and at that time he had normal renal function. I would hold the losartan and d iuretic for the time being and follow his renal function closely. (7) Type 2 diabetes mellitus with complication Assessment & Plan: This is being managed by the hospitalist. (8) COVID-19 virus detected Assessment & Plan: This is being managed by the hospitalist. MANNIE VIVAR JR, MD Jun 14, 2022 10:57
[2022-06-14 11:14] VITALS: BP 171/67
--- NOTE | 2022-06-14 11:15 | Physical Therapy Evaluation ---
PT Evaluation-General Medical Diagnosis Admission Date Jun 13, 2022 at 15:40 Medical Diagnosis: Covid/L5-pelvis PSIF Onset Date: Jun 13, 2022 Therapy Diagnosis Therapy Diagnosis: generalized weakness/debility Height/Weight Height (Feet): 5 Height (Inches): 10.00 Weight (Pounds): 200 Weight (Ounces): 1.6 Precautions Precautions/Isolations: Contact Isolation, Droplet Isolation, Fall Prevention Referral Physician: Linus Reason for Referral: Evaluation/Treatment Medical History Pertinent Medical History: CAD, CVA, DM, NM Current History transfer from [facility] for continued care Reviewed History: Yes Social History Home: Single Level Current Living Status: Friend Prior Prior Level of Function SCALE: Activities may be completed with or without assistive devices. 9-Xrlshmjaxh-hnshazq completes the activity by him/herself with no assistance from a helper. 5-Set-up or Clean-up Assistance-helper sets up or cleans up; patient completes activity. [place] assists only prior to or following the activity. 4-Supervision or Touching Assistance-helper provides verbal cues and/or touching/steadying and/or contact guard assistance as patient completes activity. Assistance may be provided throughout the activity or intermittently. 3-Partial/Moderate Assistance-helper does LESS THAN HALF the effort. [place] lifts, holds or supports trunk or limbs, but provides less than half the effort. 2-Substantial/Maximal Assistance-helper does MORE THAN HALF the effort. [place] lifts or holds trunk or limbs and provides more than half the effort. 6-Sbxpmtzma-bptplb does ALL the effort. Patient does none of the effort to complete the activity. Or, the assistance of 2 or more helpers is required for the patient to complete the activity. If activity was not attempted, code reason: 7-Patient Refused. 9-Not Applicable-not attempted and the patient did not perform the activity before the current illness, exacerbation or injury. 10-Not Attempted due to Environmental Limitations-(lack of equipment, weather restraints, etc.). 88-Not Attempted due to Medical Conditions or Safety Concerns. Bed Mobility: 6 Transfers (B,C,W/C): 6 Gait: 6 Indoor Mobility (Ambulation): Independent Prior Devices Use: Walker (4WW) PT Evaluation-Current Subjective Patient reports he is legally blind. Agrees to PT. Pain Numeric Pain Scale: 5-Moderate Pain Location: Lower Location Body Site: Back Pain Description: Acute Objective Patient Orientation: Person, Time, Situation Attachments: Drains, IV back brace ROM/Strength ROM Lower Extremities bilateral LE WFL Strength Lower Extremities 3/5 grossly bilateral LE all planes (difficulty with formal testing due to patient's inability to follow direction) Integumentary/Posture Integumentary refer to nursing notes Bladder Incontinence: Yes Posture WFL Neuromuscular (Tone, Coordination, Reflexes) grossly intact Sensory Vision: Blind Legally Transfers Lying to Sitting/Side of Bed(Q: 2 Sit to Stand (QC): 2 Chair/Svk-gr-Tntta Xfer(QC): 2 Gait Mode of Locomotion: Walk Anticipated Mode of Locomotion: Walk Distance: 5 shuffle steps Gait Assistive Device: FWW Comments/Gait Description unable to clear feet with gait training. Patient unable to take steps on this date. did perform scooting his feet to attain sitting in recliner Balance Sitting Static: Fair Sitting Dynamic: Fair Standing Static: Poor Assessment/Needs Patient is dependent to don LSO. Patient unable to ambulate at this time due to weakness. Patient will benefit from skilled PT to address functional strength and mobility. Rehab Potential: Guarded PT [employer] Super[employer] Goals [employer] Super[employer] Goals PT Senior Living Goals Time Frame: Jul 07, 2022 Roll Left & Right (QC): 4 Sit to Lying (QC): 4 Lying-Sitting on Side/Bed(QC): 4 Sit to Stand (QC): 4 Chair/Hkk-so-Qxsxj Xfer(QC): 4 Toilet Transfer (QC): 4 Walk 10 feet (QC): 4 Walk 50ft with 2 Turns (QC): 4 PT Plan Problem List Problem List: Activity Tolerance, Functional Strength, Safety, Balance, Gait, Transfer, Bed Mobility Treatment/Plan Treatment Plan: Continue Plan of Care Treatment Plan: Bed Mobility, Education, Functional Activity [place], Functional Strength, Gait, Safety, Therapeutic Exercise, Transfers Treatment Duration: Jul 07, 2022 Frequency: 6 times per week Estimated Hrs Per Day: .5 hour per day Patient and/or Family Agrees t: Yes Time Time In: 1048 Time Out: 1105 DATE: Jun 14, 2022 Total Billed Treatment Time: 17 Total Billed Treatment 1 visit EVMod 17 min EDUAR HERRING PT Jun 14, 2022 11:15
--- NOTE | 2022-06-14 11:16 | Occupational Therapy Eval ---
OT Evaluation-General/PLF Medical Diagnosis Admission Date Jun 13, 2022 at 15:40 Medical Diagnosis: Covid, s/p L5- pelvis PSIF Onset Date: Jun 13, 2022 Therapy Diagnosis Therapy Diagnosis: reduced adl status Height/Weight Height (Feet): 5 Height (Inches): 10.00 Weight (Pounds): 200 Weight (Ounces): 1.6 Precautions Precautions/Isolations: Contact Isolation, Droplet Isolation, Fall Prevention Weight Bear Status Weight Bearing Restriction: Weight Bearing/Tolerated Anticipate spinal precautions Referral Physician: Linus Referral Reason: Evaluation/Treatment Medical History Pertinent Medical History: CAD, CVA, DM, GERD, Heart Failure, HTN Additional Medical History Vision loss ~1 year ago. Reports he can see shapes/shadows. Does better with good lighting. Current History Pt initially intended to admitted to ARU s/p lumbar surgery, however prior to d/c he tested positive for Covid. Pt is a poor historian, oriented to self only. Per patient, he lives with his girlfriend Sacha (who is also in "bad shape"). He states that he was indep with adls and that he and sacha share IADL responsibilities. Pt reports using both a walker and a cane. Reviewed History: Yes Social History Home: Single Level Current Living Status: Significant Other ADL-Prior Level of Function SCALE: Activities may be completed with or without assistive devices. 1-Hghkedkybp-liijbdi completes the activity by him/herself with no assistance from a helper. 5-Set-up or Clean-up Assistance-helper sets up or cleans up; patient completes activity. [place] assists only prior to or following the activity. 4-Supervision or Touching Assistance-helper provides verbal cues and/or touching/steadying and/or contact guard assistance as patient completes activity. Assistance may be provided throughout the activity or intermittently. 3-Partial/Moderate Assistance-helper does LESS THAN HALF the effort. [place] lifts, holds or supports trunk or limbs, but provides less than half the effort. 2-Substantial/Maximal Assistance-helper does MORE THAN HALF the effort. [place] lifts or holds trunk or limbs and provides more than half the effort. 5-Rmriczcjg-xqyvzb does ALL the effort. Patient does none of the effort to complete the activity. Or, the assistance of 2 or more helpers is required for the patient to complete the activity. If activity was not attempted, code reason: 7-Patient Refused. 9-Not Applicable-not attempted and the patient did not perform the activity before the current illness, exacerbation or injury. 10-Not Attempted due to Environmental Limitations-(lack of equipment, weather restraints, etc.). 88-Not Attempted due to Medical Conditions or Safety Concerns. Self Care: Independent (per patient) Functional Cognition: Unknown DME/Equipment: Bath Chair, Grab Bars, Tub/Shower OT Current Status Subjective Pt reports back pain but does not give numerical value. He requires several repetitions and simplifications of commands. Appearance Pt left sitting in recliner, all needs within reach at OT departure. Mental Status/Objective Patient Orientation: Person, Confused Attachments: Drains (ABDELRAHMAN drain ), IV, Oxygen ADL-Treatment Upper Body Dressing (QC): 1 Lower Body Dressing (QC): 1 On/Off Footwear (QC): 1 Toileting Hygiene (QC): 1 Pt reclined in bed at therapy arrival. Reports the need to use urinal. Dependent to place and maintain however pt unsuccessful with voiding. Mod a to transfer to side of bed. Dependent to don back brace and bilateral socks. At this time, pt is assumed to have spinal precautions. Due to poor LE flexibility and vision loss (to see AE), pt likely will require assist to thread feet into clothing. Pt verbalizes a Vision loss ~1 year ago. Reports he can see shapes/shadows. He Does better with good lighting. Sit<>stand: max a, heavy reliance on BUE support on walker. Attempt to ambulate however pt does not pick and shovel worker feet despite several cues. Pt returned to sitting and chair brought closer to bed. Again, max a to stand. Pt Shuffling feet to chair with min-mod a, max cues for positioning and sequencing steps. Education OT Patient Education: Correct positioning, Modified ADL techniques, Purpose of tx/functional activities, Reviewed precautions, Rehab process, Safety issues, Transfer techniques Teaching Recipient: Patient Teaching Methods: Discussion Response to Teaching: Unable to Return Demonstration, Reinforcement Needed OT Fpc Goals Tie Fastener Goals Time Frame: Jul 05, 2022 Eating (QC): 5 Oral Hygiene (QC): 4 Toileting Hygiene (QC): 4 Shower/Bathe Self (QC): 4 Upper Body Dressing (QC): 4 Lower Body Dressing (QC): 3 On/Off Footwear (QC): 3 Additional Goals: 1-Demonstrate ADL Tasks, 2-Verbalize Understanding, 3- ImproveStrength/Abena 1=Demonstrate adherence to instructed precautions during ADL tasks. 2=Patient will verbalize/demonstrate understanding of assistive devices/modifications for ADL. 3=Patient will improve strength/tolerance for activity to enable patient to perform ADL's. OT Education/Plan Problem List/Assessment Assessment: Decreased Activ Tolerance, Decreased Safety Aware, Decreased UE Strength, Impaired Bed Mobility, Impaired Cognition, Impaired Coordination, Impaired Funct Balance, Impaired I ADL's, Impaired Self-Care Skills, Visual-Pe rceptual Deficit Discharge Recommendations Plan/Recommendations: Continue POC Therapy Discharge Recommendati: Post Acute OT Treatment Plan/Plan of Care Treatment,Training & Education: Yes Patient would benefit from OT for education, treatment and training to promote independence in ADL's, mobility, safety and/or upper extremity function for ADL's. Plan of Care: ADL Retraining Treatment Duration: Jul 05, 2022 Frequency: 3 times per week (3-5x/week ) Estimated Hrs Per Day: .25 hour per day Rehab Potential: Poor Time Start Time: 10:48 Stop Time: 11:05 DATE: Jun 14, 2022 Total Time Billed (hr/min): 17 Billed Treatment Time 1 visit Suzanna Mcgovern OT Jun 14, 2022 11:16
[2022-06-14 11:47] LABS: CHOLESTEROL 136 MG/DL (< 200); HDL CHOLESTEROL 29 MG/DL (40-60); TRIGLYCERIDES 100 MG/DL (<150); VLDL CHOLESTEROL 20 MG/DL (5-40)
--- NOTE | 2022-06-14 12:08 | Progress Note ---
LETTY ALEMAN 06/14/22 1208: Subjective Subjective/Events-last exam Today patient was seen lying in bed, he remains a poor historian and slightly confused. He denies the myalgia and malaise he complained of last night. He has not had a BM since being admitted, but on inspection he doesnt appear to be severely ill or toxic. His back pain is still very sensitive and he rates it an 8 whenever moving or exerting himself. He will continued to be monitored and hopefully transferred to the inpatient rehab unit in accordance to him remaining stable. Review of Systems General: Fatigue Genitourinary: Incontinence Musculoskeletal: back pain Neurological: Confusion Focused Exam Lactate Level 06/13/22 18:11: Lactic Acid Level 1.08 Skin: normal color, warm/dry Objective Exam Last Set of Vital Signs Vital Signs Date Time Temp Pulse Resp B/P (MAP) Pulse Ox O2 Delivery O2 Flow Rate FiO2 06/14/22 11:14 36.4 64 18 171/67 (101) 97 06/14/22 09:05 Room Air 0.00 Capillary Refill : I&O Intake and Output 06/14/22 00:00 Intake Total 470 ml Balance 470 ml Intake Oral 470 ml # Voids 1 Daily Weight Change Unsure General: Alert, Oriented X3 HEENT: Atraumatic Neck: Supple, No JVD, No Thyromegaly Lungs: Clear to Auscultation Heart: Regular Rate, No Murmurs, Gallops, Rubs Abdomen: Normal Bowel Sounds Extremities: No Clubbing, No Cyanosis, No Edema, Normal Pulses, No Tenderness/Swelling Skin: No Rashes, No Significant Lesion Psych/Mental Status: Other (slightly confused/frustrated) Results Lab Laboratory Tests 06/13/22 17:01: Glucometer 74 06/13/22 17:56: Urine Color YELLOW, Urine Clarity CLEAR, Urine pH 5.5, Urine Specific [place] 1.020, Urine Protein 1+H, Urine Glucose (UA) NEGATIVE, Urine Ketones NEGATIVE, Urine Nitrite NEGATIVE, Urine Bilirubin NEGATIVE, Urine Urobilinogen 0.2, Urine Leukocyte Esterase NEGATIVE, Urine RBC (Auto) TRACE-IH, Urine RBC NONE, Urine WBC RARE, Urine Squamous Epithelial Cells NONE, Urine Crystals NONE, Urine Bacteria FEWH, Urine Casts PRESENT, Urine Hyaline Casts 0-2H, Urine Mucus NEGATIVE, Urine Culture Indicated YES 06/13/22 18:11: White Blood Count 14.3H, Red Blood Count 3.04L, Hemoglobin 8.8L, Hematocrit 28L, Mean Corpuscular Volume 91, Mean Corpuscular Hemoglobin 29, Mean Corpuscular Hemoglobin Concent 32, Red Cell Distribution Width 14.3, Platelet Count 244, Mean Platelet Volume 11.9, Immature Granulocyte % (Auto) 0, Neutrophils (%) (Auto) 77H, Lymphocytes (%) (Auto) 10L, Monocytes (%) (Auto) 12, Eosinophils (%) (Auto) 1, Basophils (%) (Auto) 0, Neutrophils # (Auto) 11.0H, Lymphocytes # (Auto) 1.5, Monocytes # (Auto) 1.7H, Eosinophils # (Auto) 0.1, Basophils # (Auto) 0.0, Immature Granulocyte # (Auto) 0.1, Sodium Level 137, Potassium Level 4.7, Chloride Level 109H, Carbon Dioxide Level 21, Anion Gap 7, Blood Urea Nitrogen 44H, Creatinine 2.18H, Estimat Glomerular Filtration Rate 32, BUN/Creatinine Ratio 20, Glucose Level 65L, Lactic Acid Level 1.08, Calcium Level 8.2L, Corrected Calcium 9.1, Total Bilirubin 0.2, Aspartate Amino Transf (AST/SGOT) 18, Alanine Aminotransferase (ALT/SGPT) < 6, Alkaline Phosphatase 63, B-Type Natriuretic Peptide 183.3H, Total Protein 6.2L, Albumin 2.9L, Procalcitonin 0.32H 06/13/22 18:15: Blood Gas Puncture Site RR, Blood Gas Patient Temperature 36.0, Arterial Blood pH 7.36L, Arterial Blood Partial Pressure CO2 35, Arterial Blood Partial Pressure O2 57L, Arterial Blood HCO3 19L, Arterial Blood Total CO2 20.2L, Arterial Blood Oxygen Saturation 91L, Arterial Blood Base Excess -5.6L, Carlo Test YES-POS, Blood Gas Ventilator Setting NO, Blood Gas Inspired Oxygen RA 06/13/22 19:40: Influenza Type A Antigen NEGATIVE, Influenza Type B Antigen NEGATIVE 06/13/22 20:51: Glucometer 64L 06/13/22 21:58: Glucometer 54*L 06/13/22 22:54: Glucometer 132H 06/14/22 00:33: 06/14/22 05:20: White Blood Count 12.9H, Red Blood Count 2.80L, Hemoglobin 8.1L, Hematocrit 25L, Mean Corpuscular Volume 91, Mean Corpuscular Hemoglobin 29, Mean Corpuscular Hemoglobin Concent 32, Red Cell Distribution Width 14.1, Platelet Count 194, Mean Platelet Volume 11.6, Immature Granulocyte % (Auto) 1, Neutrophils (%) (Auto) 84H, Lymphocytes (%) (Auto) 5L, Monocytes (%) (Auto) 10, Eosinophils (%) (Auto) 1, Basophils (%) (Auto) 0, Neutrophils # (Auto) 10.8H, Lymphocytes # (Auto) 0.6L, Monocytes # (Auto) 1.3H, Eosinophils # (Auto) 0.1, Basophils # (Auto) 0.0, Immature Granulocyte # (Auto) 0.1, Neutrophils % (Manual) 90, Lymph ocytes % (Manual) 5, Monocytes % (Manual) 5, Basophilic Stippling SLIGHT, Elliptocytes SLIGHT, Sodium Level 137, Potassium Level 4.1, Chloride Level 117H, Carbon Dioxide Level 17L, Anion Gap 3L, Blood Urea Nitrogen 39H, Creatinine 2.08H, Estimat Glomerular Filtration Rate 34, BUN/Creatinine Ratio 19, Glucose Level 160H, Calcium Level 7.5L, Corrected Calcium 8.6, Total Bilirubin 0.3, Aspartate Amino Transf (AST/SGOT) 17, Alanine Aminotransferase (ALT/SGPT) < 6, Alkaline Phosphatase 52, Total Protein 5.7L, Albumin 2.6L, Triglycerides Level 100, Cholesterol Level 136, LDL Cholesterol Direct 86, VLDL Cholesterol 20, HDL Cholesterol 29L 06/14/22 10:36: 06/14/22 11:13: Glucometer 213H Assessment/Plan Assessment/Plan Assess & Plan/Chief Complaint A: P/S lumbar surgery Back pain Covid infection Pnuemonia CAD CKD Anemia DM P: OT/PT therapy viral regimen(paxlovid) Abx Tx(cefepime&doxycycline) O2 cannula administration Iron/b12 supplementation Glycemic control regimen Diagnosis/Problems Diagnosis/Problems (1) COVID-19 virus detected (2) Cardiac arrhythmia, unspecified (3) Paroxysmal cardiac arrhythmia (4) Primary hypertension (5) Screen for colon cancer (6) Cardiac pacemaker in situ (7) Mixed hyperlipidemia (8) Type 2 diabetes mellitus with complication (9) COVID (10) Stage 3b chronic kidney disease (11) Coronary artery disease without angina pectoris (12) Paroxysmal atrial fibrillation Clinical Quality Measures Admission Status Admission Dx A: Covid infection S/P lumbar surgery back pain malaise/myalgia DM P: Rest/continue monitoring OT/PT therapy Pain regimen serum glucose regulation DVT/VTE Risk/Contraindication: Contraindications-Pharm: Other *list below* Other: spinal surgery SHERINE ENNIS DO 06/15/22 0442: Subjective Date Seen by a Provider: Jun 14, 2022 Time Seen by a Provider: 11:00 Subjective/Events-last exam PT OT ordered HLIVF Sugars improved Review of Systems General: Fatigue Objective Exam General: Alert, Oriented X3, Cooperative, No Acute Distress Lungs: Clear to Auscultation, Normal Air Movement Heart: Regular Rate, Normal S1, Normal S2, No Murmurs Psych/Mental Status: Mental Status NL, Mood NL Supervisory-Addendum Brief Verification & Attestation Participated in pt care: history, MDM, physical Personally performed: exam, history, MDM, supervision of care Care discussed with: Medical Student Procedures: n/a Results interpretation: Verified all documentation Verification and Attestation of Medical Student E/M Service A medical student performed and documented this service in my presence. I reviewed and verified all information documented by the medical student and made modifications to such information, when appropriate. I personally performed the physical exam and medical decision making. Sherine Ennis, Jun 15, 2022,04:41 LETTY ALEMAN Jun 14, 2022 12:08 SHERINE ENNIS DO Jun 15, 2022 04:42
[2022-06-14] MEDS: HYDROmorphone 2 MG/ML VIAL (DILAUDID) IV PRN (13:18)
[2022-06-14] MEDS: CLOPIDOGREL 75 MG (PLAVIX) TABLET PO SCH (13:19)
[2022-06-14] MEDS: D5 NS 1000 ML IV SOLUTION 1,000 ML IV SCH (15:55)
[2022-06-14 16:52] VITALS: BP 177/67
[2022-06-14] MEDS ORDERED: RIVAROXABAN 15 MG TABLET (XARELTO) PO SCH (17:00)
[2022-06-14 20:06] VITALS: BP 179/68
[2022-06-14] MEDS: RIVAROXABAN 10 MG TABLET (XARELTO) PO SCH (20:56)
[2022-06-14] MEDS: LATANOPROST 0.005% (XALATAN) OPHTH SOLN 2.5 ML OU SCH (20:57)
[2022-06-15 00:06] VITALS: BP 111/76
[2022-06-15] MEDS: RT-ALBUTEROL HFA 8.5 GM INHALER IH SCH ×4 (03:26→21:11)
[2022-06-15 03:36] VITALS: BP 159/62
[2022-06-15] MEDS: CEFEPIME INJECTION 1,000 MG in NS (IVPB) 50 ML IV SCH (06:00)
[2022-06-15] MEDS: NIRMATRELVIR/RITONAVIR (PAXLOVID) TABLET PO SCH ×2 (06:00→18:39)
[2022-06-15] MEDS: inSUlin ASPART (NovoLOG) 1 UNIT/0.01 ML (CHARGE PER UNIT) SC SCH ×4 (06:02→21:00)
[2022-06-15 06:12] LABS: BASOPHILS % (AUTO) 0 % (0-10); EOSINOPHILS # (AUTO) 0.1 10^3/uL (0.0-0.3); EOSINOPHILS % (AUTO) 1 % (0-10); HEMATOCRIT 24 % (40-54); HEMOGLOBIN 7.6 g/dL (13.3-17.7); LYMPHOCYTES # (AUTO) 0.6 10^3/uL (1.0-4.0); LYMPHOCYTES % (AUTO) 6 % (12-44); MEAN CORPUSCULAR HEMOGLOBIN 29 pg (25-34); MEAN CORPUSCULAR HGB CONC 32 g/dL (32-36); MEAN CORPUSCULAR VOLUME 90 fL (80-99); MEAN PLATELET VOLUME 11.9 fL (9.0-12.2); MONOCYTES # (AUTO) 1.3 10^3/uL (0.0-1.0); MONOCYTES % (AUTO) 16 % (0-12); NEUTROPHILS # (AUTO) 6.6 10^3/uL (1.8-7.8); NEUTROPHILS % (AUTO) 77 % (42-75); PLATELET COUNT 173 10^3/uL (130-400); WHITE BLOOD COUNT 8.6 10^3/uL (4.3-11.0)
[2022-06-15 06:32] LABS: ALBUMIN 2.7 GM/DL (3.2-4.5); BILIRUBIN,TOTAL 0.3 MG/DL (0.1-1.0); CALCIUM 8.3 MG/DL (8.5-10.1); CREATININE SERUM 1.88 MG/DL (0.60-1.30); POTASSIUM 4.5 MMOL/L (3.6-5.0); TOTAL PROTEIN 5.6 GM/DL (6.4-8.2)
[2022-06-15] MEDS ORDERED: CYANOCOBALAMIN INJ 1000 MCG/ML IM ONE (07:00)
[2022-06-15 07:35] VITALS: BP 167/93
[2022-06-15] MEDS: DOXYCYCLINE INJECTION 100 MG in NS (IVPB) 100 ML IV SCH (08:32)
[2022-06-15] MEDS: GABAPENTIN 300 MG (NEURONTIN) CAP PO SCH ×2 (08:33→22:20)
[2022-06-15] MEDS: BRIMONIDINE 0.2% (ALPHAGAN) OPHTH SOLN 5 ML BTL OD SCH ×2 (08:33→22:22)
[2022-06-15] MEDS: DORZOLAMIDE/TIMOLOL (COSOPT) 2-0.68% 10 ML BTL OU SCH ×2 (08:33→22:23)
[2022-06-15] MEDS: amLODIPine 5 MG (NORVASC) TAB PO SCH (08:33)
[2022-06-15] MEDS: DOCUSATE SODIUM 100 MG (COLACE) CAP PO SCH ×2 (08:34→21:00)
[2022-06-15] MEDS: PANTOPRAZOLE 40 MG (PROTONIX) TAB PO SCH ×2 (08:34→22:19)
[2022-06-15] MEDS: CLOPIDOGREL 75 MG (PLAVIX) TABLET PO SCH (08:34)
[2022-06-15] MEDS: SENNOSIDES 8.6 MG (SENOKOT) TAB PO SCH ×2 (08:35→21:00)
[2022-06-15] MEDS ORDERED: IRON SUCROSE 200 MG/10 ML (VENOFER) VIAL IV SCH (09:00)
--- NOTE | 2022-06-15 09:58 | Physical Therapy Daily Note ---
PT Daily Note-Current Subjective Patient reports frustration with cold food and being cold in his room. Patient reluctantly agrees to PT. Pain Section J - Health Conditions 1. Rarely or not at all 2. Occasionally 3. Frequently 4. Almost constantly 8. Unable to answer Pain Effect on Sleep: 8 Pain Interference with Therapy: 8 Pain Interference w/Day-to-Day: 8 Mental Status Patient Orientation: Person, Time, Situation Attachments: IV Transfers SCALE: Activities may be completed with or without assistive devices. 8-Bfsynodabs-ohvctyh completes the activity by him/herself with no assistance from a helper. 5-Set-up or Clean-up Assistance-helper sets up or cleans up; patient completes activity. [place] assists only prior to or following the activity. 4-Supervision or Touching Assistance-helper provides verbal cues and/or touching/steadying and/or contact guard assistance as patient completes activity. Assistance may be provided throughout the activity or intermittently. 3-Partial/Moderate Assistance-helper does LESS THAN HALF the effort. [place] li fts, holds or supports trunk or limbs, but provides less than half the effort. 2-Substantial/Maximal Assistance-helper does MORE THAN HALF the effort. [place] lifts or holds trunk or limbs and provides more than half the effort. 3-Eqyeflsxx-mcryze does ALL the effort. Patient does none of the effort to complete the activity. Or, the assistance of 2 or more helpers is required for the patient to complete the activity. If activity was not attempted, code reason: 7-Patient Refused. 9-Not Applicable-not attempted and the patient did not perform the activity before the current illness, exacerbation or injury. 10-Not Attempted due to Environmental Limitations-(lack of equipment, weather restraints, etc.). 88-Not Attempted due to Medical Conditions or Safety Concerns. Lying to Sitting/Side of Bed(Q: 2 Sit to Stand (QC): 4 Chair/Prk-uf-Vdvtq Xfer(QC): 4 CGA on this date for sit to stand and mobility Gait Training Distance: 10' x 2 Walk 10 feet (QC): 4 Walk 50 ft with 2 Turns(QC): 7 Gait Assistive Device: FWW slow, minimal foot clearance Assessment Patient up in recliner with states,"I'm pooped." Treatment ceased. Patient requires dependent assist to don LSO. Increase activity as tolerated/allowed by patient. PT Alterations Workroom Clerk Goals Chcf Goals PT Chcf Goals Time Frame: Jul 07, 2022 Roll Left & Right (QC): 4 Sit to Lying (QC): 4 Lying-Sitting on Side/Bed(QC): 4 Sit to Stand (QC): 4 Chair/Ypk-vu-Ksuvi Xfer(QC): 4 Toilet Transfer (QC): 4 Walk 10 feet (QC): 4 Walk 50ft with 2 Turns (QC): 4 PT Plan Treatment/Plan Treatment Plan: Continue Plan of Care Treatment Plan: Bed Mobility, Education, Functional Activity Abena, Functional Strength, Gait, Safety, Therapeutic Exercise, Transfers Treatment Duration: Jul 07, 2022 Frequency: 6 times per week Estimated Hrs Per Day: .5 hour per day Patient and/or Family Agrees t: Yes Time Time In: 927 Time Out: 944 DATE: Jun 15, 2022 Total Billed Treatment Time: 17 Total Billed Treatment 1 visit FA 17 min EDUAR HERRING PT Jun 15, 2022 09:58
--- NOTE | 2022-06-15 10:02 | Occupational Ther Daily Note ---
OT Current Status-Daily Note Subjective Pt alert, lying in bed. Pt legally blind, increased light in room and verbalized what therapy needed pt to accomplish during session. Pt reluctantly agrees to therapy requiring encouragement to participate. Pt fatigues quickly and has difficulty understanding what is required to complete during therapy session. Mental Status/Objective Patient Orientation: Person, Place, Time, Situation Attachments: Drains, IV ADL-Treatment Therapy Code Descriptions/Definitions Functional [place] Measure: 0=Not Assessed/NA 4=Minimal Assistance 1=Total Assistance 5=Supervision or Setup 2=Maximal Assistance 6=Modified [place] 3=Moderate Assistance 7=Complete IndependenceSCALE: Activities may be completed with or without assistive devices. 9-Ihmnjnvfcs-drgvova completes the activity by him/herself with no assistance from a helper. 5-Set-up or Clean-up Assistance-helper sets up or cleans up; patient completes activity. [place] assists only prior to or following the activity. 4-Supervision or Touching Assistance-helper provides verbal cues and/or touching/steadying and/or contact guard assistance as patient completes activity. Assistance may be provided throughout the activity or intermittently. 3-Partial/Moderate Assistance-helper does LESS THAN HALF the effort. [place] li fts, holds or supports trunk or limbs, but provides less than half the effort. 2-Substantial/Maximal Assistance-helper does MORE THAN HALF the effort. [place] lifts or holds trunk or limbs and provides more than half the effort. 0-Lxrsgrvxz-pcqbwq does ALL the effort. Patient does none of the effort to complete the activity. Or, the assistance of 2 or more helpers is required for the patient to complete the activity. If activity was not attempted, code reason: 7-Patient Refused. 9-Not Applicable-not attempted and the patient did not perform the activity before the current illness, exacerbation or injury. 10-Not Attempted due to Environmental Limitations-(lack of equipment, weather restraints, etc.). 88-Not Attempted due to Medical Conditions or Safety Concerns. Other Treatment Pt requires verbal cues and requests to rolling to side by self then min A for supine to EOB. Mod A x2 sit to stand for safety. Assist x1 to ambulate using FWW from bed to recliner with 2nd person assist to manipulate IV pole/IV and furniture. Assist to complete phone call to Opal. After therapy, pt sitting in recliner with call light/phone in reach. All needs met in room. Nrsg aware of pt's position. OT Fdc Goals Fdc Goals Time Frame: Jul 05, 2022 Eating (QC): 5 Oral Hygiene (QC): 4 Toileting Hygiene (QC): 4 Shower/Bathe Self (QC): 4 Upper Body Dressing (QC): 4 Lower Body Dressing (QC): 3 On/Off Footwear (QC): 3 Additional Goals: 1-Demonstrate ADL Tasks, 2-Verbalize Understanding, 3- ImproveStrength/Abena 1=Demonstrate adherence to instructed precautions during ADL tasks. 2=Patient will verbalize/demonstrate understanding of assistive devices/modifications for ADL. 3=Patient will improve strength/tolerance for activity to enable patient to perform ADL's. OT Education/Plan Problem List/Assessment Assessment: Decreased Activ Tolerance, Decreased Safety Aware, Decreased UE Strength, Impaired Bed Mobility, Impaired Funct Balance, Impaired Self-Care Skills Discharge Recommendations Plan/Recommendations: Continue POC Treatment Plan/Plan of Care Patient would benefit from OT for education, treatment and training to promote independence in ADL's, mobility, safety and/or upper extremity function for ADL's. Plan of Care: ADL Retraining Treatment Duration: Jul 05, 2022 Frequency: 3 times per week (3-5x/week ) Estimated Hrs Per Day: .25 hour per day Rehab Potential: Poor Time Start Time: 09:27 Stop Time: 09:44 DATE: Jun 15, 2022 Total Time Billed (hr/min): 17 Billed Treatment Time 1 visit-FA 1 (17 min) LUCY MONZON Jun 15, 2022 10:02
[2022-06-15 11:03] VITALS: BP 161/72
--- NOTE | 2022-06-15 15:30 | Progress Note ---
LETTY ALEMAN 06/15/22 1530: Progress Note Hospital Course: Manuel Cochran, goes by Martin, is a 72yo M who was admitted to the [facility] 4th floor 06/13/22 from [facility] with a chief complaint of malaise/myalgia, sore throat, and back pain. Martin was initially intended to be brought to the inpatient rehab unit for S/P lumbar surgery done in [place], but prior to discharge he tested positive for Covid. He was then brought into room 433 to be quarantined, and continually monitored. On talking with patient he was fatigued and oriented x3 but very frustrated, he hasn't had much education and in conversation is mildly obtuse. Multple times in conversation patient appeared to almost fall asleep and start snoring. He did not appear to be toxic, and denied any c/o SOB, CP, fevers, chills, or naseua. He remained quarantined where he had very limited mobility due to the severity of his back pain that he often rated as an 8/10, this caused him to have several instances where he wet the bed adding to his frustration, he initially had a fever despite denying any, which went down to NL on 06/15/22, his lungs continued to sound congested and for pneumonia PPx he was given Abx. Anemia also was a concern where Hgb was around 7.6, so Iron and B12 were administered. His mood gradually improved but he had frustrations with his foods temperature and would call his girlfriend Opal to help calm him down. It is planned to move him to the IRF of [facility], where he will remain in quarentine until he meets his 10 day requirement, while still working with OT/PT to help alleviate pain and improve debility. SHERINE ENNIS DO 06/16/22 0620: Progress Note Patient seen and examined Less oxygen requirement Sugars are improved CHecked meds AF VSS, pleasant, flat affect rRR, CTAB coarse in bases No edema Supervisory-Addendum Brief Verification & Attestation Participated in pt care: history, MDM, physical Personally performed: exam, history, MDM, supervision of care Care discussed with: Medical Student Procedures: n/a Results interpretation: Verified all documentation Verification and Attestation of Medical Student E/M Service A medical student performed and documented this service in my presence. I reviewed and verified all information documented by the medical student and made modifications to such information, when appropriate. I personally performed the physical exam and medical decision making. Sherine Ennis, Jun 16, 2022,06:19 LETTY ALEMAN Jun 15, 2022 15:30 SHERINE ENNIS DO Jun 16, 2022 06:20
[2022-06-15 16:05] VITALS: BP 163/72
--- NOTE | 2022-06-15 17:44 | Cardiology Progress Note ---
Progress Note-Cardiology Events since last exam Date Seen by Provider: Jun 15, 2022 Time Seen by Provider: 17:38 Events since last exam I am following him due to his history of coronary artery disease and atrial f ibrillation. He remains in isolation on the medical floor. He is confused. His main complaint is back pain. He states that he cannot get comfortable in bed. He denies chest discomfort, dyspnea at rest, palpitations, syncope, or ankle edema. However, due to his apparent confusion, his answers may not be reliable. Certain portions of this document may have been dictated utilizing voice recogn ition technology. Inherent to this technology, typographical and grammatical errors may exist. As much as I am diligent to identify and correct these mistakes, some errors may remain in the document. Vitals Last set of Vitals Signs Vital Signs 06/14/22 06/15/22 20:55 16:05 Temp 36.8 Pulse 63 Resp 20 B/P (MAP) 163/72 (102) Pulse Ox 95 O2 Delivery Room Air O2 Flow Rate 2.00 Labs Labs Laboratory Tests 06/15/22 06:00 Exam Vital Signs Vital Signs Date Time Temp Pulse Resp B/P (MAP) Pulse Ox O2 Delivery O2 Flow Rate FiO2 06/15/22 16:05 36.8 63 20 163/72 (102) 95 Room Air 06/14/22 20:55 2.00 Physical Exam Due to the patient's COVID status, I spoke with the patient from the doorway. General: The patient is breathing spontaneously. HENT: Normocephalic. Atraumatic. Skin: There is no pallor. Neurologic: Oriented to person only. Cranial nerves III through XII grossly intact. Moving all 4 extremities. Psychiatric: Appears confused but cooperative. Labs Laboratory Tests Test 06/14/22 19:24 06/15/22 05:56 06/15/22 06:00 06/15/22 11:02 Range/Units Glucometer 250 H 113 H 331 H 70-110 MG/DL White Blood Count 8.6 4.3-11.0 10^3/uL Red Blood Count 2.65 L 4.30-5.52 10^6/uL Hemoglobin 7.6 L 13.3-17.7 g/dL Hematocrit 24 L 40-54 % Mean Corpuscular Volume 90 80-99 fL Mean Corpuscular Hemoglobin 29 25-34 pg Mean Corpuscular Hemoglobin Concent 32 32-36 g/dL Red Cell Distribution Width 14.0 10.0-14.5 % Platelet Count 173 130-400 10^3/uL Mean Platelet Volume 11.9 9.0-12.2 fL Immature Granulocyte % (Auto) 0 % Neutrophils (%) (Auto) 77 H 42-75 % Lymphocytes (%) (Auto) 6 L 12-44 % Monocytes (%) (Auto) 16 H 0-12 % Eosinophils (%) (Auto) 1 0-10 % Basophils (%) (Auto) 0 0-10 % Neutrophils # (Auto) 6.6 1.8-7.8 10^3/uL Lymphocytes # (Auto) 0.6 L 1.0-4.0 10^3/uL Monocytes # (Auto) 1.3 H 0.0-1.0 10^3/uL Eosinophils # (Auto) 0.1 0.0-0.3 10^3/uL Basophils # (Auto) 0.0 0.0-0.1 10^3/uL Immature Granulocyte # (Auto) 0.0 0.0-0.1 10^3/uL Sodium Level 138 135-145 MMOL/L Potassium Level 4.5 3.6-5.0 MMOL/L Chloride Level 112 H 98-107 MMOL/L Carbon Dioxide Level 18 L 21-32 MMOL/L Anion Gap 8 5-14 MMOL/L Blood Urea Nitrogen 43 H 7-18 MG/DL Creatinine 1.88 H 0.60-1.30 MG/DL Estimat Glomerular Filtration Rate 38 BUN/Creatinine Ratio 23 Glucose Level 107 H 70-105 MG/DL Calcium Level 8.3 L 8.5-10.1 MG/DL Corrected Calcium 9.3 8.5-10.1 MG/DL Total Bilirubin 0.3 0.1-1.0 MG/DL Aspartate Amino Transf (AST/SGOT) 19 5-34 U/L Alanine Aminotransferase (ALT/SGPT) 7 0-55 U/L Alkaline Phosphatase 56 40-136 U/L Total Protein 5.6 L 6.4-8.2 GM/DL Albumin 2.7 L 3.2-4.5 GM/DL Test 06/15/22 16:03 Range/Units Glucometer 203 H 70-110 MG/DL Diagnosis/Problems Diagnosis/Problems (1) Paroxysmal atrial fibrillation Assessment & Plan: Based upon the outside records, his medication list and his electrocardiogram, it appears as though he has a history of atrial fibrillation. Unknown if this is paroxysmal, persistent or permanent. It seems as though he was taking rivaroxaban at home. I restarted rivaroxaban but pharmacy recommended a lower dose since the patient is on Paxlovid for the COVID infection. 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 I am still waiting to receive these records. I did review the records from the outside hospital. These were not all that informative in regards to his cardiac history. (2) Coronary artery disease without angina pectoris Assessment & Plan: He also has an apparent history of coronary artery disease and there was some mention in the outside notes of an acute ST elevation myocardial infarction at some point in the past. It appears as though he had been getting aspirin, clopidogrel and rivaroxaban at the outside hospital. I stopped his aspirin and changed this over to clopidogrel with rivaroxaban. I restarted his statin medication. It appears as though he was taking diltiazem at home and not a beta-patricia. (3) Primary hypertension Assessment & Plan: Continue diltiazem which he was taking at home. The hospitalist also ordered amlodipine. His blood pressure remains elevated so I will increase the dose of amlodipine. He was taking losartan at home but this is currently on hold, presumably due to the possible acute kidney injury on chronic kidney disease. (4) Mixed hyperlipidemia Assessment & Plan: Continue atorvastatin. (5) Cardiac pacemaker in situ Assessment & Plan: He has a dual-chamber pacemaker in place as identified on his chest x-ray. As above, I requested a copy of his most recent cardiology note from his regular outpatient primary care provider. (6) Stage 3b chronic kidney disease Assessment & Plan: His most recent blood work in our hospital was from 2017 and at that time he had normal renal function. I would hold the losartan and diuretic for the time being and follow his renal function closely. (7) Type 2 diabetes mellitus with complication Assessment & Plan: This is being managed by the hospitalist. (8) COVID-19 virus detected Assessment & Plan: This is being managed by the hospitalist. (9) Encephalopathy Assessment & Plan: Etiology unclear. His baseline mental status is unknown to me. This may warrant some additional testing which I will leave up to the discretion of the hospitalist. MANNIE VIVAR JR, MD Jun 15, 2022 17:44
[2022-06-15] MEDS: DOXYCYCLINE 100 MG (VIBRAMYCIN) TABLET PO SCH (18:38)
[2022-06-15 20:15] VITALS: BP 174/88
[2022-06-15] MEDS: RIVAROXABAN 10 MG TABLET (XARELTO) PO SCH (22:19)
[2022-06-15] MEDS: LATANOPROST 0.005% (XALATAN) OPHTH SOLN 2.5 ML OU SCH (22:25)
[2022-06-16] VITALS: BP 161/72
[2022-06-16] MEDS: RT-ALBUTEROL HFA 8.5 GM INHALER IH SCH ×2 (02:06→09:26)
[2022-06-16 03:51] VITALS: BP 178/74
[2022-06-16] MEDS: HYDROmorphone 2 MG/ML VIAL (DILAUDID) IV PRN (05:49)
[2022-06-16] MEDS: DOXYCYCLINE 100 MG (VIBRAMYCIN) TABLET PO SCH (05:50)
--- NOTE | 2022-06-16 06:36 | Progress Note ---
Subjective Date Seen by a Provider: Jun 16, 2022 Time Seen by a Provider: 11:30 Focused Exam Lactate Level 06/13/22 18:11: Lactic Acid Level 1.08 Objective Exam Last Set of Vital Signs Vital Signs Date Time Temp Pulse Resp B/P (MAP) Pulse Ox O2 Delivery O2 Flow Rate FiO2 06/16/22 03:51 Room Air 06/16/22 03:51 36.7 65 18 178/74 (108) 92 06/14/22 20:55 2.00 Capillary Refill : I&O Intake and Output 06/16/22 00:00 Intake Total 1380 ml Output Total 80 ml Balance 1300 ml Intake Oral 1380 ml Output Drainage Total 80 ml # Voids 2 # Urine Diapers 5 Results Lab Laboratory Tests 06/15/22 11:02: Glucometer 331H 06/15/22 16:03: Glucometer 203H 06/15/22 20:13: Glucometer 127H 06/16/22 06:20: Glucometer 65L Microbiology 06/13/22 Blood Culture - Preliminary, Resulted No growth 06/13/22 Urine Culture - Final, Complete NO GROWTH Assessment/Plan Assessment/Plan Assess & Plan/Chief Complaint A: P/S lumbar surgery Back pain Covid infection Pnuemonia CAD CKD Anemia DM P: OT/PT therapy viral regimen(paxlovid) Abx Tx(cefepime&doxycycline) O2 cannula administration Iron/b12 supplementation Glycemic control regimen Diagnosis/Problems Diagnosis/Problems (1) COVID Clinical Quality Measures Admission Status Admission Dx Assessment: COVID infection Pneumonia bacterial type with elevated PCT s/p lumbar spine surgery DM with variable control Anemia Plan: IV abx DM DVT/VTE Risk/Contraindication: Contraindications-Pharm: Other *list below* Other: spinal surgery NATHALIA ENNIS DO Jun 16, 2022 06:36
[2022-06-16] MEDS ORDERED: CYANOCOBALAMIN 1,000 MCG (VITAMIN B-12) TABLET PO SCH (07:00)
[2022-06-16 07:18] LABS: BASOPHILS % (AUTO) 0 % (0-10); EOSINOPHILS # (AUTO) 0.1 10^3/uL (0.0-0.3); EOSINOPHILS % (AUTO) 1 % (0-10); HEMATOCRIT 26 % (40-54); HEMOGLOBIN 7.9 g/dL (13.3-17.7); LYMPHOCYTES # (AUTO) 0.8 10^3/uL (1.0-4.0); LYMPHOCYTES % (AUTO) 8 % (12-44); MEAN CORPUSCULAR HEMOGLOBIN 29 pg (25-34); MEAN CORPUSCULAR HGB CONC 31 g/dL (32-36); MEAN CORPUSCULAR VOLUME 92 fL (80-99); MEAN PLATELET VOLUME 12.2 fL (9.0-12.2); MONOCYTES # (AUTO) 1.3 10^3/uL (0.0-1.0); MONOCYTES % (AUTO) 14 % (0-12); NEUTROPHILS # (AUTO) 7.3 10^3/uL (1.8-7.8); NEUTROPHILS % (AUTO) 76 % (42-75); PLATELET COUNT 198 10^3/uL (130-400); WHITE BLOOD COUNT 9.6 10^3/uL (4.3-11.0)
[2022-06-16] MEDS: inSUlin ASPART (NovoLOG) 1 UNIT/0.01 ML (CHARGE PER UNIT) SC SCH ×2 (07:27→11:13)
[2022-06-16] MEDS: NIRMATRELVIR/RITONAVIR (PAXLOVID) TABLET PO SCH (07:37)
[2022-06-16 07:38] LABS: ALBUMIN 2.8 GM/DL (3.2-4.5); BILIRUBIN,TOTAL 0.4 MG/DL (0.1-1.0); CALCIUM 8.3 MG/DL (8.5-10.1); CREATININE SERUM 1.66 MG/DL (0.60-1.30); POTASSIUM 4.6 MMOL/L (3.6-5.0)
[2022-06-16 08:00] VITALS: BP 168/67
[2022-06-16] MEDS ORDERED: amLODIPine 5 MG (NORVASC) TAB PO SCH (09:00)
[2022-06-16] MEDS: BRIMONIDINE 0.2% (ALPHAGAN) OPHTH SOLN 5 ML BTL OD SCH (09:57)
[2022-06-16] MEDS: CLOPIDOGREL 75 MG (PLAVIX) TABLET PO SCH (09:58)
[2022-06-16] MEDS: DORZOLAMIDE/TIMOLOL (COSOPT) 2-0.68% 10 ML BTL OU SCH (09:58)
[2022-06-16] MEDS: GABAPENTIN 300 MG (NEURONTIN) CAP PO SCH (09:58)
[2022-06-16] MEDS: DOCUSATE SODIUM 100 MG (COLACE) CAP PO SCH (09:58)
[2022-06-16] MEDS: SENNOSIDES 8.6 MG (SENOKOT) TAB PO SCH (09:59)
[2022-06-16] MEDS: PANTOPRAZOLE 40 MG (PROTONIX) TAB PO SCH (09:59)
--- NOTE | 2022-06-16 10:52 | Discharge Summary ---
Diagnosis/Chief Complaint Date of Admission Jun 13, 2022 at 15:40 Date of Discharge Discharge Date: Jun 16, 2022 Discharge Diagnosis COVID-pneumonia Hypoxia Recent lumbar stenosis surgery Bacterial pneumonia Chronic kidney disease Low vision due to diabetic retinopathy Anemia postop Reason Hospital Visit CC: COVID infection following lumbar spine surgery HPI: This is a patient known to me from [facility] who had a slow recovery from L- spine surgery requiring skilled eval which required a COVID swab which was positive so he was moved to [facility] in hopes for ARU admit. Discharge Summary Discharge Physical Examination Allergies: Coded Allergies: No Known Drug Allergies (Verified , 01/05/08) Vitals & I&Os Vital Signs Date Time Temp Pulse Resp B/P (MAP) Pulse Ox O2 Delivery O2 Flow Rate FiO2 06/16/22 09:26 65 97 06/16/22 09:26 Room Air 06/16/22 08:00 36.5 18 168/67 (100) 06/14/22 20:55 2.00 General Appearance: Alert, Oriented X3, Cooperative Respiratory: Clear to Auscultation Cardiovascular: Regular Rate Hospital Course Was the Problem List Reviewed?: Yes Hospital course: Patient had an uneventful hospital course after he was admitted from [facility] due to slow recovery and debility but was found to have COVID when he was swabbed in preparation to going to skilled therapy. He was found to be a rehab candidate as long as he stabilized from a COVID-pneumonia standpoint. Patient was placed on protocol meds of Paxlovid in addition bacterial pneumonia management oxygen supplementation and albuterol treatments. DVT prophylaxis was held due to lumbar spine surgery with high risk for hematoma and will be able to be restarted on 06/17/[address] Fall. Overall he did very well and his hypoglycemia resolved he was restarted all home medication. Labs (last 24 hrs) Laboratory Tests 06/13/22 17:01: Glucometer 74 06/13/22 17:56: Urine Color YELLOW, Urine Clarity CLEAR, Urine pH 5.5, Urine Specific [place] 1.020, Urine Protein 1+H, Urine Glucose (UA) NEGATIVE, Urine Ketones NEGATIVE, Urine Nitrite NEGATIVE, Urine Bilirubin NEGATIVE, Urine Urobilinogen 0.2, Urine Leukocyte Esterase NEGATIVE, Urine RBC (Auto) TRACE-IH, Urine RBC NONE, Urine WBC RARE, Urine Squamous Epithelial Cells NONE, Urine Crystals NONE, Urine Bacteria FEWH, Urine Casts PRESENT, Urine Hyaline Casts 0-2H, Urine Mucus NEGATIVE, Urine Culture Indicated YES 06/13/22 18:11: White Blood Count 14.3H, Red Blood Count 3.04L, Hemoglobin 8.8L, Hematocrit 28L, Mean Corpuscular Volume 91, Mean Corpuscular Hemoglobin 29, Mean Corpuscular Hemoglobin Concent 32, Red Cell Distribution Width 14.3, Platelet Count 244, Mean Platelet Volume 11.9, Immature Granulocyte % (Auto) 0, Neutrophils (%) (Auto) 77H, Lymphocytes (%) (Auto) 10L, Monocytes (%) (Auto) 12, Eosinophils (%) (Auto) 1, Basophils (%) (Auto) 0, Neutrophils # (Auto) 11.0H, Lymphocytes # (Auto) 1.5, Monocytes # (Auto) 1.7H, Eosinophils # (Auto) 0.1, Basophils # (Auto) 0.0, Immature Granulocyte # (Auto) 0.1, Sodium Level 137, Potassium Level 4.7, Chloride Level 109H, Carbon Dioxide Level 21, Anion Gap 7, Blood Urea Nitrogen 44H, Creatinine 2.18H, Estimat Glomerular Filtration Rate 32, BUN/Cr eatinine Ratio 20, Glucose Level 65L, Lactic Acid Level 1.08, Calcium Level 8.2L , Corrected Calcium 9.1, Total Bilirubin 0.2, Aspartate Amino Transf (AST/SGOT) 18, Alanine Aminotransferase (ALT/SGPT) < 6, Alkaline Phosphatase 63, B-Type Natriuretic Peptide 183.3H, Total Protein 6.2L, Albumin 2.9L, Procalcitonin 0.32H 06/13/22 18:15: Blood Gas Puncture Site RR, Blood Gas Patient Temperature 36.0, Arterial Blood pH 7.36L, Arterial Blood Partial Pressure CO2 35, Arterial Blood Partial Pressure O2 57L, Arterial Blood HCO3 19L, Arterial Blood Total CO2 20.2L, Arterial Blood Oxygen Saturation 91L, Arterial Blood Base Excess -5.6L, Carlo Test YES-POS, Blood Gas Ventilator Setting NO, Blood Gas Inspired Oxygen RA 06/13/22 19:40: Influenza Type A Antigen NEGATIVE, Influenza Type B Antigen NEGATIVE 06/13/22 20:51: Glucometer 64L 06/13/22 21:58: Glucometer 54*L 06/13/22 22:54: Glucometer 132H 06/14/22 00:33: Iron Level 14L, Vitamin B12 Level <148L 06/14/22 05:20: White Blood Count 12.9H, Red Blood Count 2.80L, Hemoglobin 8.1L, Hematocrit 25L, Mean Corpuscular Volume 91, Mean Corpuscular Hemoglobin 29, Mean Corpuscular Hemoglobin Concent 32, Red Cell Distribution Width 14.1, Platelet Count 194, Mean Platelet Volume 11.6, Immature Granulocyte % (Auto) 1, Neutrophils (%) (Auto) 84H, Lymphocytes (%) (Auto) 5L, Monocytes (%) (Auto) 10, Eosinophils (%) (Auto) 1, Basophils (%) (Auto) 0, Neutrophils # (Auto) 10.8H, Lymphocytes # (Auto) 0.6L, Monocytes # (Auto) 1.3H, Eosinophils # (Auto) 0.1, Basophils # (Auto) 0.0, Immature Granulocyte # (Auto) 0.1, Neutrophils % (Manual) 90, Lymphocytes % (Manual) 5, Monocytes % (Manual) 5, Basophilic Stippling SLIGHT, Elliptocytes SLIGHT, Sodium Level 137, Potassium Level 4.1, Chloride Level 117H, Carbon Dioxide Level 17L, Anion Gap 3L, Blood Urea Nitrogen 39H, Creatinine 2.08H, Estimat Glomerular Filtration Rate 34, BUN/Creatinine Ratio 19, Glucose Level 160H, Calcium Level 7.5L, Corrected Calcium 8.6, Total Bilirubin 0.3, Aspartate Amino Transf (AST/SGOT) 17, Alanine Aminotransferase (ALT/SGPT) < 6, Alkaline Phosphatase 52, Total Protein 5.7L, Albumin 2.6L, Triglycerides Level 100, Cholesterol Level 136, LDL Cholesterol Direct 86, VLDL Cholesterol 20, HDL Cholesterol 29L 06/14/22 10:36: Mean Blood Glucose 166H, Hemoglobin A1c 7.4H 06/14/22 11:13: Glucometer 213H 06/14/22 16:32: Glucometer 295H 06/14/22 19:24: Glucometer 250H 06/15/22 05:56: Glucometer 113H 06/15/22 06:00: White Blood Count 8.6, Red Blood Count 2.65L, Hemoglobin 7.6L, Hematocrit 24L, Mean Corpuscular Volume 90, Mean Corpuscular Hemoglobin 29, Mean Corpuscular Hemoglobin Concent 32, Red Cell Distribution Width 14.0, Platelet Count 173, Mean Platelet Volume 11.9, Immature Granulocyte % (Auto) 0, Neutrophils (%) (Auto) 77H, Lymphocytes (%) (Auto) 6L, Monocytes (%) (Auto) 16H, Eosinophils (%) (Auto) 1, Basophils (%) (Auto) 0, Neutrophils # (Auto) 6.6, Lymphocytes # (Auto) 0.6L, Monocytes # (Auto) 1.3H, Eosinophils # (Auto) 0.1, Basophils # (Auto) 0.0, Immature Granulocyte # (Auto) 0.0, Sodium Level 138, Potassium Level 4.5, Chloride Level 112H, Carbon Dioxide Level 18L, Anion Gap 8, Blood Urea Nitrogen 43H, Creatinine 1.88H, Estimat Glomerular Filtration Rate 38, BUN/Creatinine Ratio 23, Glucose Level 107H, Calcium Level 8.3L, Corrected Calcium 9.3, Total Bilirubin 0.3, Aspartate Amino Transf (AST/SGOT) 19, Alanine Aminotransferase (ALT/SGPT) 7, Alkaline Phosphatase 56, Total Protein 5.6L, Albumin 2.7L 06/15/22 11:02: Glucometer 331H 06/15/22 16:03: Glucometer 203H 06/15/22 20:13: Glucometer 127H 06/16/22 06:20: Glucometer 65L 06/16/22 07:13: White Blood Count 9.6, Red Blood Count 2.77L, Hemoglobin 7.9L, Hematocrit 26L, Mean Corpuscular Volume 92, Mean Corpuscular Hemoglobin 29, Mean Corpuscular Hemoglobin Concent 31L, Red Cell Distribution Width 14.0, Platelet Count 198, Mean Platelet Volume 12.2, Immature Granulocyte % (Auto) 0, Neutrophils (%) (Auto) 76H, Lymphocytes (%) (Auto) 8L, Monocytes (%) (Auto) 14H, Eosinophils (%) (Auto) 1, Basophils (%) (Auto) 0, Neutrophils # (Auto) 7.3, Lymphocytes # (Auto) 0.8L, Monocytes # (Auto) 1.3H, Eosinophils # (Auto) 0.1, Basophils # (Auto) 0.0, Immature Granulocyte # (Auto) 0.0, Sodium Level 135, Potassium Level 4.6, Chloride Level 110H, Carbon Dioxide Level 15L, Anion Gap 10, Blood Urea Nitrogen 40H, Creatinine 1.66H, Estimat Glomerular Filtration Rate 44, BUN/Creatinine Ratio 24, Glucose Level 79, Calcium Level 8.3L, Corrected Calcium 9.3, Total Bilirubin 0.4, Aspartate Amino Transf (AST/SGOT) 29, Alanine Aminotransferase (ALT/SGPT) 11, Alkaline Phosphatase 58, Total Protein 6.0L, Albumin 2.8L 06/16/22 10:48: Glucometer 142H Microbiology 06/13/22 Blood Culture - Preliminary, Resulted No growth 06/13/22 Urine Culture - Final, Complete NO GROWTH Pending Labs Microbiology Date/Time Source Procedure Growth Status 06/13/22 19:10 Peripheral Rt Hand Blood Culture - Preliminary No growth Resulted 06/13/22 18:11 Peripheral Arm, Right Blood Culture - Preliminary No growth Resulted 06/13/22 17:56 Urine Clean Catch Urine Culture - Final NO GROWTH Complete Laboratory Tests 06/13/22 17:01: Glucometer 74 06/13/22 17:56: Urine Color YELLOW, Urine Clarity CLEAR, Urine pH 5.5, Urine Specific [place] 1.020, Urine Protein 1+, Urine Glucose (UA) NEGATIVE, Urine Ketones NEGATIVE, Urine Nitrite NEGATIVE, Urine Bilirubin NEGATIVE, Urine Urobilinogen 0.2, Urine Leukocyte Esterase NEGATIVE, Urine RBC (Auto) TRACE-I, Urine RBC NONE, Urine WBC RARE, Urine Squamous Epithelial Cells NONE, Urine Crystals NONE, Urine Bacteria FEW, Urine Casts PRESENT, Urine Hyaline Casts 0-2, Urine Mucus NEGATIVE, Urine Culture Indicated YES 06/13/22 18:11: White Blood Count 14.3, Red Blood Count 3.04, Hemoglobin 8.8, Hematocrit 28, Mean Corpuscular Volume 91, Mean Corpuscular Hemoglobin 29, Mean Corpuscular Hemoglobin Concent 32, Red Cell Distribution Width 14.3, Platelet Count 244, Mean Platelet Volume 11.9, Immature Granulocyte % (Auto) 0, Neutrophils (%) (Auto) 77, Lymphocytes (%) (Auto) 10, Monocytes (%) (Auto) 12, Eosinophils (%) (Auto) 1, Basophils (%) (Auto) 0, Neutrophils # (Auto) 11.0, Lymphocytes # (Auto) 1.5, Monocytes # (Auto) 1.7, Eosinophils # (Auto) 0.1, Basophils # (Auto) 0.0, Immature Granulocyte # (Auto) 0.1, Sodium Level 137, Potassium Level 4.7, Chloride Level 109, Carbon Dioxide Level 21, Anion Gap 7, Blood Urea Nitrogen 44, Creatinine 2.18, Estimat Glomerular Filtration Rate 32, BUN/Creatinine Ratio 20, Glucose Level 65, Lactic Acid Level 1.08, Calcium Level 8.2, Corrected Calcium 9.1, Total Bilirubin 0.2, Aspartate Amino Transf (AST/SGOT) 18, Alanine Aminotransferase (ALT/SGPT) < 6, Alkaline Phosphatase 63, B-Type Natriuretic Peptide 183.3, Total Protein 6.2, Albumin 2.9, Procalcitonin 0.32 06/13/22 18:15: Blood Gas Puncture Site RR, Blood Gas Patient Temperature 36.0, Arterial Blood pH 7.36, Arterial Blood Partial Pressure CO2 35, Arterial Blood Partial Pressure O2 57, Arterial Blood HCO3 19, Arterial Blood Total CO2 20.2, Arterial Blood Oxygen Saturation 91, Arterial Blood Base Excess -5.6, Carlo Test YES-POS, Blood Gas Ventilator Setting NO, Blood Gas Inspired Oxygen RA 06/13/22 19:40: Influenza Type A Antigen NEGATIVE, Influenza Type B Antigen NEGATIVE 06/13/22 20:51: Glucometer 64 06/13/22 21:58: Glucometer 54 06/13/22 22:54: Glucometer 132 06/14/22 00:33: Iron Level 14, Vitamin B12 Level <148 06/14/22 05:20: White Blood Count 12.9, Red Blood Count 2.80, Hemoglobin 8.1, Hematocrit 25, Mean Corpuscular Volume 91, Mean Corpuscular Hemoglobin 29, Mean Corpuscular Hemoglobin Concent 32, Red Cell Distribution Width 14.1, Platelet Count 194, Mean Platelet Volume 11.6, Immature Granulocyte % (Auto) 1, Neutrophils (%) (Auto) 84, Lymphocytes (%) (Auto) 5, Monocytes (%) (Auto) 10, Eosinophils (%) (Auto) 1, Basophils (%) (Auto) 0, Neutrophils # (Auto) 10.8, Lymphocytes # (Auto) 0.6, Monocytes # (Auto) 1.3, Eosinophils # (Auto) 0.1, Basophils # (Auto) 0.0, Immature Granulocyte # (Auto) 0.1, Neutrophils % (Manual) 90, Lymphocytes % (Manual) 5, Monocytes % (Manual) 5, Basophilic Stippling SLIGHT, Elliptocytes SLIGHT, Sodium Level 137, Potassium Level 4.1, Chloride Level 117, Carbon Dioxide Level 17, Anion Gap 3, Blood Urea Nitrogen 39, Creatinine 2.08, Estimat Glomerular Filtration Rate 34, BUN/Creatinine Ratio 19, Glucose Level 160, Calcium Level 7.5, Corrected Calcium 8.6, Total Bilirubin 0.3, Aspartate Amino Transf (AST/SGOT) 17, Alanine Aminotransferase (ALT/SGPT) < 6, Alkaline Ph osphatase 52, Total Protein 5.7, Albumin 2.6, Triglycerides Level 100, Cholesterol Level 136, LDL Cholesterol Direct 86, VLDL Cholesterol 20, HDL Cholesterol 29 06/14/22 10:36: Mean Blood Glucose 166, Hemoglobin A1c 7.4 06/14/22 11:13: Glucometer 213 06/14/22 16:32: Glucometer 295 06/14/22 19:24: Glucometer 250 06/15/22 05:56: Glucometer 113 06/15/22 06:00: White Blood Count 8.6, Red Blood Count 2.65, Hemoglobin 7.6, Hematocrit 24, Mean Corpuscular Volume 90, Mean Corpuscular Hemoglobin 29, Mean Corpuscular Hemog lobin Concent 32, Red Cell Distribution Width 14.0, Platelet Count 173, Mean Platelet Volume 11.9, Immature Granulocyte % (Auto) 0, Neutrophils (%) (Auto) 77, Lymphocytes (%) (Auto) 6, Monocytes (%) (Auto) 16, Eosinophils (%) (Auto) 1, Basophils (%) (Auto) 0, Neutrophils # (Auto) 6.6, Lymphocytes # (Auto) 0.6, Monocytes # (Auto) 1.3, Eosinophils # (Auto) 0.1, Basophils # (Auto) 0.0, Immature Granulocyte # (Auto) 0.0, Sodium Level 138, Potassium Level 4.5, Chloride Level 112, Carbon Dioxide Level 18, Anion Gap 8, Blood Urea Nitrogen 43, Creatinine 1.88, Estimat Glomerular Filtration Rate 38, BUN/Creatinine Ratio 23, Glucose Level 107, Calcium Level 8.3, Corrected Calcium 9.3, Total Bilirubin 0.3, Aspartate Amino Transf (AST/SGOT) 19, Alanine Aminotransferase (ALT/SGPT) 7, Alkaline Phosphatase 56, Total Protein 5.6, Albumin 2.7 06/15/22 11:02: Glucometer 331 06/15/22 16:03: Glucometer 203 06/15/22 20:13: Glucometer 127 06/16/22 06:20: Glucometer 65 06/16/22 07:13: White Blood Count 9.6, Red Blood Count 2.77, Hemoglobin 7.9, Hematocrit 26, Mean Corpuscular Volume 92, Mean Corpuscular Hemoglobin 29, Mean Corpuscular Hemoglobin Concent 31, Red Cell Distribution Width 14.0, Platelet Count 198, Mean Platelet Volume 12.2, Immature Granulocyte % (Auto) 0, Neutrophils (%) (Auto) 76, Lymphocytes (%) (Auto) 8, Monocytes (%) (Auto) 14, Eosinophils (%) (Auto) 1, Basophils (%) (Auto) 0, Neutrophils # (Auto) 7.3, Lymphocytes # (Auto) 0.8, Monocytes # (Auto) 1.3, Eosinophils # (Auto) 0.1, Basophils # (Auto) 0.0, Immature Granulocyte # (Auto) 0.0, Sodium Level 135, Potassium Level 4.6, Chloride Level 110, Carbon Dioxide Level 15, Anion Gap 10, Blood Urea Nitrogen 40, Creatinine 1.66, Estimat Glomerular Filtration Rate 44, BUN/Creatinine Ratio 24, Glucose Level 79, Calcium Level 8.3, Corrected Calcium 9.3, Total Bilirubin 0.4, Aspartate Amino Transf (AST/SGOT) 29, Alanine Aminotransferase (ALT/SGPT) 11, Alkaline Phosphatase 58, Total Protein 6.0, Albumin 2.8 06/16/22 10:48: Glucometer 142 Discharge Home Medications: Active Scripts Active Reported Glyburide 5 Mg Tablet 10 Mg PO BID WITH MEALS Neurontin (Gabapentin) 300 Mg Capsule 300 Mg PO BID Xarelto (Rivaroxaban) 20 Mg Tablet 20 Mg PO 1800 W/SUPPER Aspirin 81 Mg Tab.chew 81 Mg PO DAILY Atorvastatin Calcium 20 Mg Tablet 20 Mg PO DAILY Diltiazem 24Hr Cd (Diltiazem HCl) 300 Mg Cap.er.24h 300 Mg PO DAILY Januvia (Sitagliptin Phosphate) 100 Mg Tablet 100 Mg PO DAILY Metformin HCl 1,000 Mg Tablet 1,000 Mg PO BID Levemir Flextouch (Insulin Detemir) 100 Unit/Ml (3 Ml) Insuln.pen 30 Unit SQ DAILY PRN Furosemide 40 Mg Tablet 40 Mg PO DAILY Brimonidine Tartrate 0.2 % Btl 1 Drop OD BID Pantoprazole Sodium 40 Mg Tablet.dr 40 Mg PO BID Losartan Potassium 100 Mg Tablet 100 Mg PO DAILY Latanoprost 0.005% Eye Drop (Latanoprost/Pf) 0.005 % Drops 1 Drop OU HS Cosopt Eye Drops (Dorzolamide HCl/Timolol Maleat) 22.3 Mg-6.8 Mg/Ml Drops 1 Drops OU BID Instructions to patient/family Please see electronic discharge instructions given to patient. Diagnosis/Problems Diagnosis/Problems (1) COVID Clinical Quality Measures DVT/VTE Risk/Contraindication: Contraindications-Pharm: Other *list below* Other: spinal surgery NATHALIA ENNIS DO Jun 16, 2022 10:52
[2022-06-16] MEDS ORDERED: RT-ALBUTEROL HFA 8.5 GM INHALER IH PRN (11:00)
[2022-06-16] MEDS ORDERED: LACTULOSE SYRUP 10GM/15ML (ENULOSE) 30ML UDC PO ONE ×2 (11:00→12:00)
[2022-06-16] MEDS ORDERED: SENNA W/DOCUSATE (SENOKOT S) TABLET PO ONE (11:00)
--- NOTE | 2022-06-18 15:03 | Physician Query Clarification ---
PQ-Further Specificity Admission/Discharge Admission Date: Jun 13, 2022 at 15:40 Discharge Date: Jun 16, 2022 at 12:30 The medical record reflects the following clinical scenario: History/Risk Factors: Covid, pneumonia Clinical Findings: confusion, memory loss Treatment: Question: Do you agree with Dr Esposito progress note from 06/15, stating encephalopathy, etiology unknown? If so, can you document below: Please document a response in the Progress Notes or Discharge Summary. 1. metabolic encephalopathy 2. encephalopathy, unknown etiology, unspecified 3. Other, with explanation of the clinical findings. 4. No encephalopathy PHYSICIAN RESPONSE Can you specify per above: 1 In responding to this query, please exercise your independent professional judgment. The purpose of this communication is to more accurately reflect the complexity of your patients condition. The fact that a question is asked does not imply that any particular answer is desired or expected. Thank you for your timely response to this clarification. Requestors name: Milli THIS PHYSICIAN QUERY FORM IS A PERMANENT PART OF THE MEDICAL RECORD MILLI COPE Jun 18, 2022 15:03 NATHALIA ENNIS DO Jun 18, 2022 16:06
[2022-06-22] MEDS ORDERED: RIVAROXABAN 15 MG TABLET (XARELTO) PO SCH (17:00)
== END 2022-06-16 12:30 | DRG 177 ==
LOC: 4TH 15:40
PROVIDERS: ADMIT Internal Medicine; ATTEND Internal Medicine
PROC: 8E0ZXY6 Isolation (ICD-10-PCS; principal; 2022-06-13)
DX: U07.1 COVID-19 (principal); G93.41 Metabolic encephalopathy; J12.82 Pneumonia due to coronavirus disease 2019; J15.9 Unspecified bacterial pneumonia; E11.319 Type 2 diabetes mellitus with unspecified diabetic retinopathy without macular edema; E11.649 Type 2 diabetes mellitus with hypoglycemia without coma; I25.10 Atherosclerotic heart disease of native coronary artery without angina pectoris; I48.0 Paroxysmal atrial fibrillation; E78.2 Mixed hyperlipidemia; I12.9 Hypertensive chronic kidney disease with stage 1 through stage 4 chronic kidney disease, or unspecified chronic kidney disease; N18.32 Chronic kidney disease, stage 3b; E11.22 Type 2 diabetes mellitus with diabetic chronic kidney disease; D64.89 Other specified anemias; I49.9 Cardiac arrhythmia, unspecified; Z98.890 Other specified postprocedural states; Z79.4 Long term (current) use of insulin; Z79.84 Long term (current) use of oral hypoglycemic drugs; Z95.0 Presence of cardiac pacemaker; Z73.0 Burn-out; Z28.310 Unvaccinated for COVID-19; Z79.01 Long term (current) use of anticoagulants
CPT/HCPCS: 36415; 36569; 36600; 71045; 76937; 80053; 80061; 81000; 82607; 82805; 82947; 83036; 83540; 83605; 83880; 84145; 85007; 85025; 85027; 87040; 87088; 87804; 93005; 94640; 94760

== ENCOUNTER 2022-06-15 22:24 | Inpatient (IN) | payer MEDICARE, OTHER, MEDICAID ==
[~2022-06-15] VITALS: Ht 168 cm; Wt 94.3 kg
[~2022-06-15 22:24] MED LIST changes: +ATOR20TA66 PO; +BRIMON0.2 OD; +DILT300C51 PO; +DORZ10DR22 OU; +FURO40TA4 PO; +GABA300C PO; +INSU100I29 SQ; +LATA7.5D OU; +LOSA100T57 PO; +METF-399 PO; +PANT40TA52 PO; +RIVA20TA PO; +SITA100T12 PO
--- NOTE | 2022-06-16 11:39 | PM&R Post Admission Assessment ---
PM&R HP Date of Visit: Jun 16, 2022 Time of Visit: 14:00 History of Present Illness CC: Debility following Lumbar spine surgery by Dr Marshall Fall at [facility] with COVID post operatively with bacterial PNA HPI: See below med surg course. Patient now presents with slow recovery following COVID PNA and complex spine surgery. OAC and antiplatelet medications will be restarted 06/17/[address] Fall. His bowels are still very slow but he is voiding well. Eating better. Kidneys are much improved but has Stage III CKD. Completed Paxlovid. Med-surg: Hospital Course: Manuel Cochran, goes by Martin, is a 72yo M who was admitted to the [facility] 4th floor 06/13/22 from [facility] with a chief complaint of malaise/myalgia, sore throat, and back pain. Martin was initially intended to be brought to the inpatient rehab unit for S/P lumbar surgery done in [place], but prior to discharge he tested positive for Covid. He was then brought into room 433 to be quarantined, and continually monitored. On talking with patient he was fatigued and oriented x3 but very frustrated, he hasn't had much education and in conversation is mildly obtuse. Multple times in conversation patient appeared to almost fall asleep and start snoring. He did not appear to be toxic, and denied any c/o SOB, CP, fevers, chills, or naseua. He remained quarantined where he had very limited mobility due to the severity of his back pain that he often rated as an 8/10, this caused him to have several instances where he wet the bed adding to his frustration, he initially had a fever despite denying any, which went down to NL on 06/15/22, his lungs continued to sound congested and for pneumonia PPx he was given Abx. Anemia also was a concern where Hgb was around 7.6, so Iron and B12 were administered. His mood gradually improved but he had frustrations with his foods temperature and would call his girlfriend Opal to help calm him down. It is planned to move him to the IRF of [facility], where he will remain in quarentine until he meets his 10 day requirement, while still working with OT/PT to help alleviate pain and improve debility. Past Cauyalp-Hxzgks-Lgrpuy Hx Past Med/Social Hx: Reviewed Nursing Past Med/Soc Hx, Reviewed and Corrections made Patient Social History Marrital Status: cohabiting Employed/Student: retired Alcohol Use: Denies Use Smoking Status: Former Smoker Type Used: Cigarettes Recent Hopitalizations: Yes (5 months ago at [facility]) Immunizations Up To Date Tetanus Booster (TDap): Less than 5yrs Pediatric: No Date of Influenza Vaccine: Apr 07, 2022 Seasonal Allergies Seasonal Allergies: No Past Medical History Surgeries: Orthopedic Currently Using CPAP: No Currently Using BIPAP: No Cardiac: Atrial Fibrillation, High Cholesterol, Hypertension pacemaker Reproductive: No Sexually Transmitted Disease: No HIV/AIDS: No Genitourinary: Prostate Problems Gastrointestinal: Gastroesophageal Reflux Endocrine: Diabetes, Insulin dep Loss of Vision: Denies Psychosocial: Depression History of Blood Disorders: No Adverse Reaction to Blood Dill: No Family History Cardiovascular disease 19 FATHER G8 BROTHER G8 BROTHER Diabetes mellitus 19 MOTHER PM&R Allergy/Meds/Data Review Allergies Coded Allergies: No Known Drug Allergies (Verified , 01/05/08) Home Medications Scheduled Aspirin (Aspirin), 81 MG PO DAILY, (Reported) Atorvastatin Calcium (Atorvastatin Calcium), 20 MG PO DAILY, (Reported) Brimonidine Tartrate (Brimonidine Tartrate), 1 DROP OD BID, (Reported) Diltiazem HCl (Diltiazem 24Hr Cd), 300 MG PO DAILY, (Reported) Dorzolamide HCl/Timolol Maleat (Cosopt Eye Drops), 1 DROPS OU BID, (Reported) Furosemide (Furosemide), 40 MG PO DAILY, (Reported) Gabapentin (Neurontin), 300 MG PO BID, (Reported) Glyburide (Glyburide), 10 MG PO BID WITH MEALS, (Reported) Latanoprost/Pf (Latanoprost 0.005% Eye Drop), 1 DROP OU HS, (Reported) Losartan Potassium (Losartan Potassium), 100 MG PO DAILY, (Reported) Metformin HCl (Metformin HCl), 1,000 MG PO BID, (Reported) Pantoprazole Sodium (Pantoprazole Sodium), 40 MG PO BID, (Reported) Rivaroxaban (Xarelto), 20 MG PO 1800 W/SUPPER, (Reported) Sitagliptin Phosphate (Januvia), 100 MG PO DAILY, (Reported) Scheduled PRN Insulin Detemir (Levemir Flextouch), 30 UNIT SQ DAILY PRN for HYPERGLYCEMIA, (Reported) Discontinued Medications Aspirin (Aspirin), 81 MG PO DAILY, (Reported) Discontinued Reason: Duplicate Order Clopidogrel Bisulfate (Clopidogrel), (Reported) Discontinued Reason: Duplicate Order Diltiazem HCl (Cartia Xt), 180 MG PO DAILY, (Reported) Discontinued Reason: Duplicate Order Insulin Determir (Levemir), 10 UNITS SQ DAILY, (Reported) Discontinued Reason: Duplicate Order Losartan Potassium (Losartan Potassium), 50 MG PO DAILY, (Reported) Discontinued Reason: Duplicate Order Metformin Hcl (Metformin 500 Mg), 1,000 MG PO BID, (Reported) Discontinued Reason: Duplicate Order Pantoprazole Sodium (Protonix), (Reported) Discontinued Reason: Duplicate Order Sitagliptin Phosphate (Januvia), 1 EACH PO DAILY, (Reported) Discontinued Reason: Duplicate Order Tamsulosin HCl (Tamsulosin HCl), (Reported) Discontinued Reason: Duplicate Order Current Medications Current Medications Reviewed Review of Systems Constitutional: see HPI, malaise, weakness EENTM: no symptoms reported Respiratory: no symptoms reported Cardiovascular: no symptoms reported Gastrointestinal: constipation Genitourinary: no symptoms reported Musculoskeletal: back pain, joint pain Skin: no symptoms reported Psychiatric/Neurological: Depressed All Other Systems Reviewed Negative Unless Noted: Yes Physical Exam Physical Exam Vital Signs Capillary Refill : Height, Weight, BMI Height: 5'10.00" Weight: 200lbs. 1.6oz. [id number]; 33.70 BMI Method:Estimated General Appearance: No Apparent Distress, WD/WN, Chronically ill, Obese Eyes: Bilateral Eye Normal Inspection, Bilateral Eye PERRL HEENT: PERRL/EOMI, Normal ENT Inspection, Pharynx Normal Neck: Full Range of Motion, Normal Inspection, Non Tender, Supple, Carotid Bruit Respiratory: Chest Non Tender, Lungs Clear, Normal Breath Sounds, No Accessory Muscle Use, No Respiratory Distress Cardiovascular: Regular Rate, Rhythm, No Edema, No Gallop, No JVD, No Murmur, Normal Peripheral Pulses Gastrointestinal: Normal Bowel Sounds, No Organomegaly, No Pulsatile Mass, Non Tender, Soft Back: Normal Inspection, CVA Tenderness (L), CVA Tenderness (R), Decreased Range of Motion, Muscle Spasm, Vertebral Tenderness Extremity: Normal Capillary Refill, Normal Inspection, Normal Range of Motion (limited ), Non Tender, No Calf Tenderness, No Pedal Edema Neurologic/Psychiatric: Alert, Oriented x3, high school director II-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 Norm as Tested, Abnormal Gait, Depressed Affect, Motor Weakness Skin: Normal Color, Warm/Dry Lymphatic: No Adenopathy PM&R Medical Assessment & Plan REHAB/MEDICAL ASSESSMENT AND PLAN: REHAB IMPAIRMENT GROUP: Lumbar spine surgery with COVID ETIOLOGIC DIAGNOSIS: Lumbar spine surgery with COVID The comorbidities that impact the patients function and/or functional outcome by: slow recovery from COVID, DM OOC, low vision, CKD, fall risk REHAB PLAN: The patient is being admitted to our comprehensive inpatient rehabilitation facility and can tolerate the intensity of service consisting of at least: 180 minutes of therapy a day, 5 out of 7 days a week Rehab treatment will consist of: PT OT will focus on regaining function in order to return back to independent living with use of AD and help increase stamina with ambulation The patient/family has a good understanding of our discharge process and will benefit from an interdisciplinary inpatient rehabilitation program. The patient has potential to make improvement and is in need of at least two of the following multidisciplinary therapies including but not limited to physical, occupational, speech, and prosthetics and orthotics. Additionally the patient will need services from respiratory, nutritional services, wound care, psychology, etc. (Customize this to each patient). Given the patients complex condition and risk of further medical complications, rehabilitation services cannot be safely or effectively provided at a lower level of care such as a [place] [facility] facility. BARRIERS TO DISCHARGE: Slow recovery with low vision ESTIMATED LOS: 10 days DISPOSITION: Home RELEVANT CHANGES SINCE PREADMISSION SCREENING: I have compared the patients medical and functional status at the time of the preadmission screening and there are: no changes PROGNOSIS: Guarded REHABILITATION GOALS: 1.PT OT will focus on regaining function in order to return back to independent living with use of AD and help increase stamina with ambulation All the above goals were reviewed with the patient and he/she is in agreement. By signing this document, I acknowledge that I have personally performed a full physical examination on this patient within 24 hours of admission to this inpatient rehabilitation facility and have determined the patient to be able to tolerate the above course of treatment at an intensive level for a reasonable period of time. I will be completing a detailed individualized Plan of Care for this patient by day #4 of the patients stay based upon the Preadmission Screen, the Post-Admission Evaluation, and the therapy evaluations. Admission Dx/Comorbidities: (1) Lumbar spinal stenosis ICD Codes: M48.061 - Spinal stenosis, lumbar region without neurogenic claudication (2) COVID ICD Codes: U07.1 - COVID-19 (3) Stage 3b chronic kidney disease ICD Codes: N18.32 - Chronic kidney disease, stage 3b (4) Coronary artery disease without angina pectoris ICD Codes: I25.10 - Atherosclerotic heart disease of [place] coronary artery without angina pectoris (5) Paroxysmal atrial fibrillation ICD Codes: I48.0 - Paroxysmal atrial fibrillation (6) Type 2 diabetes mellitus with complication ICD Codes: E11.8 - Type 2 diabetes mellitus with unspecified complications (7) Mixed hyperlipidemia ICD Codes: E78.2 - Mixed hyperlipidemia (8) Cardiac pacemaker in situ ICD Codes: Z95.0 - Presence of cardiac pacemaker (9) Primary hypertension ICD Codes: I10 - Essential (primary) hypertension Assessment/Plan Assessment and Plan Assess & Plan/Chief Complaint Assessment: Slow recovery from lumbar spine surgery COVID infection- isolation until 06/22/22 s/p bacterial PNA Low vision from DM retinopathy HTN CKD Stage III HLP Pacemaker PAF OAC restart 06/17/[address] Fall to prevent spinal hematoma Plan: Monitor sugars Monitor reat BM regimen PT OT Isolation until Saturday Restart Plavix and Xarelto 06/17/22 NATHALIA ENNIS DO Jun 16, 2022 11:39
[2022-06-16] MEDS ORDERED: diphenhydrAMINE 25 MG TAB (BENADRYL) PO PRN ×2 (11:45→14:30)
[2022-06-16] MEDS ORDERED: FLEET ENEMA ADULT 1 EA BTL PR PRN (11:45)
[2022-06-16] MEDS ORDERED: LOPERAMIDE 2 MG (IMODIUM) TABLET PO PRN (11:45)
[2022-06-16] MEDS ORDERED: ONDANSETRON 4 MG (ZOFRAN) ORAL DISSOLVE TAB PO PRN ×2 (11:45→14:30)
[2022-06-16] MEDS ORDERED: ALPRAZolam 0.25 MG (XANAX) TAB PO PRN (11:45)
[2022-06-16] MEDS ORDERED: CALCIUM CARBONATE 500 MG (TUMS) TAB.CHEW PO PRN ×2 (11:45→14:30)
[2022-06-16] MEDS ORDERED: MELATONIN 3 MG TABLET PO PRN ×2 (11:45→14:30)
[2022-06-16] MEDS ORDERED: ACETAMINOPHEN 325 MG TABLET PO PRN ×2 (11:45→14:30)
[2022-06-16] MEDS ORDERED: LACTULOSE SYRUP 10GM/15ML (ENULOSE) 30ML UDC PO PRN ×2 (11:45→14:30)
[2022-06-16] MEDS ORDERED: BISACODYL 10 MG SUPP (DULCOLAX) PR PRN ×2 (11:45→14:30)
[2022-06-16] MEDS ORDERED: guaiFENesin/CODEINE (ROBITUSSIN AC) 10ML UDC PO PRN (11:45)
[2022-06-16] MEDS ORDERED: DOCUSATE SODIUM 100 MG (COLACE) CAP PO PRN (11:45)
[2022-06-16 12:30] VITALS: BP 184/81
--- NOTE | 2022-06-16 13:53 | Physical Therapy Evaluation ---
PT Evaluation-General Medical Diagnosis Admission Date Jun 16, 2022 at 12:30 Medical Diagnosis: COVID +, s/p L5-Pelvis PSIF Onset Date: Jun 13, 2022 Therapy Diagnosis Therapy Diagnosis: Impaired mobility Height/Weight Height (Feet): 5 Height (Inches): 10.00 Weight (Pounds): 200 Weight (Ounces): 1.6 Precautions Precautions/Isolations: Airborne Isolation, Fall Prevention, Standard Pre cautions, Pressure Ulcer Weight Bear Status Full Weight Bearing Full Weight Bearing Pt to be in LSO brace when standing Referral Physician: Linus Reason for Referral: Evaluation/Treatment Medical History Pertinent Medical History: CAD, CVA, DM, GERD, Heart Failure, HTN Current History Recent L5-S1 fusion with Dr. Fall. Found to be COVID positive. Transferred from [address] [place] [address]. Reviewed History: Yes Social History Home: Single Level Current Living Status: Significant Other Pt is moderately confused and a poor historian. Prior Prior Level of Function SCALE: Activities may be completed with or without assistive devices. 5-Yojdtrzmfi-jtpgupu completes the activity by him/herself with no assistance from a helper. 5-Set-up or Clean-up Assistance-helper sets up or cleans up; patient completes activity. [place] assists only prior to or following the activity. 4-Supervision or Touching Assistance-helper provides verbal cues and/or touching/steadying and/or contact guard assistance as patient completes activit y. Assistance may be provided throughout the activity or intermittently. 3-Partial/Moderate Assistance-helper does LESS THAN HALF the effort. [place] lifts, holds or supports trunk or limbs, but provides less than half the effort. 2-Substantial/Maximal Assistance-helper does MORE THAN HALF the effort. [place] lifts or holds trunk or limbs and provides more than half the effort. 2-Dyqfjodpp-bzdfdt does ALL the effort. Patient does none of the effort to complete the activity. Or, the assistance of 2 or more helpers is required for the patient to complete the activity. If activity was not attempted, code reason: 7-Patient Refused. 9-Not Applicable-not attempted and the patient did not perform the activity before the current illness, exacerbation or injury. 10-Not Attempted due to Environmental Limitations-(lack of equipment, weather restraints, etc.). 88-Not Attempted due to Medical Conditions or Safety Concerns. Bed Mobility: 1 Transfers (B,C,W/C): 1 Gait: 1 Indoor Mobility (Ambulation): Dependent Stairs: Unknown Prior Devices Use: Walker Pt presented to the hospital with a 4 wheeled walker and a cane. PT Evaluation-Current Subjective Pt reports strong lumbar pain and is moderately confused. Pain Numeric Pain Scale: 5-Moderate Pain Location: Incisional Location Body Site: Back Pain Description: Stabbing, Sharp Section J - Health Conditions 1. Rarely or not at all 2. Occasionally 3. Frequently 4. Almost constantly 8. Unable to answer Pain Effect on Sleep: 4 Pain Interference with Therapy: 4 Pain Interference w/Day-to-Day: 4 Pt/Family Goals Unknown Objective Patient Orientation: Confused ROM/Strength ROM Upper Extremities WFL ROM Lower Extremities WFL Strength Upper Extremities WFL Strength Lower Extremities 3/5 grossly bilateral LE all planes (difficulty with formal testing due to patient's inability to follow directions) Integumentary/Posture Bladder Incontinence: Yes Sensory Vision: Functional Hearing: Impaired Sensation Right Upper Extremit: Intact Sensation Left Upper Extremity: Intact Sensation Right Lower Extremit: Intact Sensation Left Lower Extremity: Intact Sensation Lower Extremities Pt often yells when his lower extremities are touched. Transfers Roll Left & Right (QC): 1 Sit to Lying (QC): 1 Lying to Sitting/Side of Bed(Q: 1 Sit to Stand (QC): 1 Chair/Iwd-qh-Rzsfz Xfer(QC): 1 Toilet Transfer (QC): 88 Car Transfer (QC): 88 Pt took over 10 minutes to transfer from the bedside chair to the wheelchair. He kept grasping for something overhead while being directed to turn to sit. Gait Does the Patient Walk?: Yes Mode of Locomotion: Walk Anticipated Mode of Locomotion: Walk Walk 10 feet (QC): 88 Walk 50 ft with 2 Turns(QC): 88 Walk 150 ft (QC): 88 Walking 10ft/uneven surface-QC: 88 Distance: 2ft Gait Assistive Device: Handheld Assist Comments/Gait Description Pt took 5-6 shuffling steps to make the turn from chair to chair. This was performed twice during his transfer from [facility] to rehab. Wheelchair Training Does the Pt Use a Wheelchair?: No Wheel 50 ft with 2 turns (QC): 9 Wheel 150 ft (QC): 9 Stairs 1 Step (curb) (QC): 88 4 Steps (QC): 9 12 Steps (QC): 9 Pt states that he doesn't do steps. Balance Sitting Static: Good Sitting Dynamic: Good Standing Static: Fair Standing Dynamic: Fair Picking up an Object (QC): 88 Special Test Comments Pt is quite confused today and struggled to make a stand pivot transfer safely. Assessment/Needs Confusion is severely limiting his ability to participate with therapy. He required total assist for donning his brace, sit to stand, and transfer. Pt was not able to participate with ROM, strength, or functional testing. Rehab Potential: Poor Post Rehab Potential-Barriers: Confusion PT Biomedical Scientist Goals Penit[facility]iary Goals PT Biomedical Scientist Goals Time Frame: Jul 07, 2022 Roll Left to Right (QC): 4 Sit to Lying (QC): 4 Lying-Sitting on Side/Bed(QC): 4 Sit to Stand (QC): 4 Chair/Sqg-tm-Qezec Xfer(QC): 4 Toilet/Commode Transfer (QC): 4 Car Transfer (QC): 4 Does the Patient Walk: Yes Walk 10 feet (QC): 4 Walk 10ft-Uneven Surface(QC): 4 Walk 50ft with 2 Turns (QC): 4 Walk 150 ft (QC): 4 Does the Pt use WC or Scooter?: No Wheel 50 feet with 2 turns (QC: 9 Wheel 150 feet: 9 1 Step (curb) (QC): 4 4 Steps (QC): 9 12 Steps (QC): 9 Picking up an Object (QC): 4 PT Plan Problem List Problem List: Activity Tolerance, Functional Strength, Safety, Balance, Gait, Transfer, Bed Mobility Treatment/Plan Treatment Plan: Continue Plan of Care Treatment Duration: Jul 07, 2022 Frequency: At least 5 of 7 days/Wk (IRF) Estimated Hrs Per Day: 1.5 hours per day Patient and/or Family Agrees t: Yes Time Time In: 1200 Time Out: 1229 DATE: Jun 16, 2022 Total Billed Treatment Time: 29 Total Billed Treatment 1, [facility] 29 NEENA MON PT Jun 16, 2022 13:53
[2022-06-16] MEDS ORDERED: RELABEL FOR HOME USE MC SCH (14:30)
[2022-06-16] MEDS ORDERED: HYDROmorphone 2 MG/ML VIAL (DILAUDID) IV PRN (14:30)
[2022-06-16] MEDS ORDERED: ONDANSETRON 4 MG/2 ML (SDV) Z0FRAN IV PRN (14:30)
[2022-06-16] MEDS ORDERED: cloNIDine 0.1 MG (CATAPRES) TAB PO PRN (14:30)
[2022-06-16] MEDS ORDERED: ANTACID SUSP 30 ML UDC (MYLANTA) PO PRN (14:30)
[2022-06-16] MEDS ORDERED: diphenhydrAMINE 50 MG/ML INJ (BENADRYL) IVP PRN (14:30)
[2022-06-16] MEDS ORDERED: polyethylene glycoL POWDER 17 GM (MIRALAX) PACK PO PRN (14:30)
[2022-06-16] MEDS ORDERED: MILK OF MAGNESIA 400 MG/5 ML 30 ML UDC PO PRN (14:30)
[2022-06-16] MEDS ORDERED: DEXTROSE 50% 50 ML (IMS) SYR IV PRN (14:30)
[2022-06-16] MEDS ORDERED: FLU QUAD HIGH DOSE 240 MCG/0.7 ML 2022-23 (FLUZONE) IM ONE (14:45)
[2022-06-16 15:50] VITALS: BP 184/81
[2022-06-16] MEDS ORDERED: RT-ALBUTEROL HFA 8.5 GM INHALER IH PRN (16:00)
[2022-06-16] MEDS: inSUlin ASPART (NovoLOG) 1 UNIT/0.01 ML (CHARGE PER UNIT) SC SCH ×2 (19:37→20:18)
[2022-06-16] MEDS: DOCUSATE SODIUM 100 MG (COLACE) CAP PO SCH (20:11)
[2022-06-16] MEDS: DOXYCYCLINE 100 MG (VIBRAMYCIN) TABLET PO SCH (20:11)
[2022-06-16 20:12] VITALS: BP 171/86
[2022-06-16] MEDS: GABAPENTIN 300 MG (NEURONTIN) CAP PO SCH (20:12)
[2022-06-16] MEDS: PANTOPRAZOLE 40 MG (PROTONIX) TAB PO SCH (20:12)
[2022-06-16] MEDS: NIRMATRELVIR/RITONAVIR (PAXLOVID) TABLET PO SCH (20:13)
[2022-06-16] MEDS ORDERED: DOCUSATE SODIUM 100 MG (COLACE) CAP PO SCH (21:00)
[2022-06-16] MEDS: BRIMONIDINE 0.2% (ALPHAGAN) OPHTH SOLN 5 ML BTL OD SCH (21:50)
[2022-06-16] MEDS: DORZOLAMIDE/TIMOLOL (COSOPT) 2-0.68% 10 ML BTL OU SCH (21:55)
[2022-06-16] MEDS: polyethylene glycoL POWDER 17 GM (MIRALAX) PACK PO SCH (21:55)
[2022-06-16] MEDS: SENNOSIDES 8.6 MG (SENOKOT) TAB PO SCH (21:55)
[2022-06-16] MEDS: SENNA W/DOCUSATE (SENOKOT S) TABLET PO SCH (21:55)
[2022-06-16] MEDS: LATANOPROST 0.005% (XALATAN) OPHTH SOLN 2.5 ML OU SCH (21:55)
[2022-06-17] MEDS: NIRMATRELVIR/RITONAVIR (PAXLOVID) TABLET PO SCH ×3 (02:19→22:26)
[2022-06-17] MEDS: inSUlin ASPART (NovoLOG) 1 UNIT/0.01 ML (CHARGE PER UNIT) SC SCH ×4 (06:29→20:44)
--- NOTE | 2022-06-17 06:32 | PM&R Progress Note ---
Subjective HPI/CC On Admission Date Seen by Provider: Jun 17, 2022 Time Seen by Provider: 12:00 Subjective/Events-last exam 06/17/2022: Blood sugars are once again low Reviewed labs and meds May need transfusion Creat stable and improved No falls Supportive care continues No BM yet so will increase meds Review of Systems General: Fatigue, Malaise Objective Exam Vital Signs Vital Signs Date Time Temp Pulse Resp B/P (MAP) Pulse Ox O2 Delivery O2 Flow Rate FiO2 06/17/22 09:00 Room Air 06/17/22 08:53 92 0.00 06/17/22 08:00 36.1 64 20 154/72 (99) 06/16/22 15:50 21 Capillary Refill : General Appearance: No Apparent Distress, WD/WN, Chronically ill, Obese HEENT: PERRL/EOMI, Normal ENT Inspection, Pharynx Normal Neck: Full Range of Motion, Normal Inspection, Non Tender, Supple, Carotid Bruit Respiratory: Chest Non Tender, Lungs Clear, Normal Breath Sounds, No Accessory Muscle Use, No Respiratory Distress Cardiovascular: Regular Rate, Rhythm, No Edema, No Gallop, No JVD, No Murmur, Normal Peripheral Pulses Gastrointestinal: Normal Bowel Sounds, No Organomegaly, No Pulsatile Mass, Non Tender, Soft Back: Normal Inspection, CVA Tenderness (L), CVA Tenderness (R), Decreased Range of Motion, Muscle Spasm, Vertebral Tenderness Extremity: Normal Capillary Refill, Normal Inspection, Normal Range of Motion (limited ), Non Tender, No Calf Tenderness, No Pedal Edema Neurologic/Psychiatric: Alert, Oriented x3, spring upholsterer II-XII Norm as Tested, Abnormal Gait, Depressed Affect, Motor Weakness Skin: Normal Color, Warm/Dry Lymphatic: No Adenopathy Results/Procedures Lab Laboratory Tests 06/17/22 06:25 Patient resulted labs reviewed. FIM Transfers Therapy Code Descriptions/Definitions Functional [place] Measure: 0=Not Assessed/NA 4=Minimal Assistance 1=Total Assistance 5=Supervision or Setup 2=Maximal Assistance 6=Modified [place] 3=Moderate Assistance 7=Complete IndependenceSCALE: Activities may be completed with or without assistive devices. 2-Ojktmfrjdm-uvikmlr completes the activity by him/herself with no assistance from a helper. 5-Set-up or Clean-up Assistance-helper sets up or cleans up; patient completes activity. [place] assists only prior to or following the activity. 4-Supervision or Touching Assistance-helper provides verbal cues and/or touching/steadying and/or contact guard assistance as patient completes activity. Assistance may be provided throughout the activity or intermittently. 3-Partial/Moderate Assistance-helper does LESS THAN HALF the effort. [place] lifts, holds or supports trunk or limbs, but provides less than half the effort. 2-Substantial/Maximal Assistance-helper does MORE THAN HALF the effort. [place] lifts or holds trunk or limbs and provides more than half the effort. 1-Stxpljuif-hwfcdb does ALL the effort. Patient does none of the effort to complete the activity. Or, the assistance of 2 or more helpers is required for the patient to complete the activity. If activity was not attempted, code reason: 7-Patient Refused. 9-Not Applicable-not attempted and the patient did not perform the activity before the current illness, exacerbation or injury. 10-Not Attempted due to Environmental Limitations-(lack of equipment, weather restraints, etc.). 88-Not Attempted due to Medical Conditions or Safety Concerns. Roll Left to Right (QC): 1 Sit to Lying (QC): 1 Sit to Stand (QC): 1 Chair/Qox-sn-Osjpp Xfer(QC): 1 Car Transfer (QC): 88 Gait Training Does the Patient Walk?: Yes Walk 10 feet (QC): 88 Walk 50 ft with 2 Turns(QC): 88 Walk 150 ft (QC): 88 Walking 10ft/uneven surface-QC: 88 Gait Assistive Device: Handheld Assist Wheelchair Training Does the Pt Use a Wheelchair?: No Wheel 50 ft with 2 turns (QC): 9 Wheel 150 ft (QC): 9 Stair Training 1 Step (curb) (QC): 88 4 Steps (QC): 9 12 Steps (QC): 9 Balance Picking up an Object (QC): 88 Assessment/Plan Assessment and Plan Assess & Plan/Chief Complaint Assessment: Slow recovery from lumbar spine surgery COVID infection- isolation until 06/22/22 s/p bacterial PNA Low vision from DM retinopathy HTN CKD Stage III HLP Pacemaker PAF OAC restart 06/17/[address] Fall to prevent spinal hematoma Post op constipation Plan: Monitor sugars Monitor reat BM regimen PT OT Isolation until Saturday Restart Xarelto 06/17/22 06/17/2022: BM regimen Monitor closely (1) Lumbar spinal stenosis (2) COVID (3) Stage 3b chronic kidney disease (4) Coronary artery disease without angina pectoris (5) Paroxysmal atrial fibrillation (6) Type 2 diabetes mellitus with complication (7) Mixed hyperlipidemia (8) Cardiac pacemaker in situ (9) Primary hypertension NATHALIA ENNIS DO Jun 17, 2022 06:32
[2022-06-17 06:34] LABS: BASOPHILS % (AUTO) 0 % (0-10); EOSINOPHILS # (AUTO) 0.1 10^3/uL (0.0-0.3); EOSINOPHILS % (AUTO) 1 % (0-10); HEMATOCRIT 24 % (40-54); HEMOGLOBIN 7.7 g/dL (13.3-17.7); LYMPHOCYTES # (AUTO) 1.1 10^3/uL (1.0-4.0); LYMPHOCYTES % (AUTO) 10 % (12-44); MEAN CORPUSCULAR HEMOGLOBIN 29 pg (25-34); MEAN CORPUSCULAR HGB CONC 32 g/dL (32-36); MEAN CORPUSCULAR VOLUME 89 fL (80-99); MEAN PLATELET VOLUME 11.8 fL (9.0-12.2); MONOCYTES # (AUTO) 1.4 10^3/uL (0.0-1.0); MONOCYTES % (AUTO) 13 % (0-12); NEUTROPHILS # (AUTO) 8.3 10^3/uL (1.8-7.8); NEUTROPHILS % (AUTO) 75 % (42-75); PLATELET COUNT 263 10^3/uL (130-400)
[2022-06-17] MEDS: CYANOCOBALAMIN 1,000 MCG (VITAMIN B-12) TABLET PO SCH (06:53)
[2022-06-17] MEDS: DOXYCYCLINE 100 MG (VIBRAMYCIN) TABLET PO SCH ×2 (06:53→17:09)
[2022-06-17] MEDS: PANTOPRAZOLE 40 MG (PROTONIX) TAB PO SCH ×2 (06:53→16:03)
[2022-06-17 06:58] LABS: ALBUMIN 2.9 GM/DL (3.2-4.5); BILIRUBIN,TOTAL 0.4 MG/DL (0.1-1.0); CALCIUM 8.6 MG/DL (8.5-10.1); CREATININE SERUM 1.68 MG/DL (0.60-1.30); POTASSIUM 4.4 MMOL/L (3.6-5.0); TOTAL PROTEIN 6.2 GM/DL (6.4-8.2)
[2022-06-17 08:00] VITALS: BP 154/72
[2022-06-17] MEDS: amLODIPine 5 MG (NORVASC) TAB PO SCH (08:22)
[2022-06-17] MEDS: DOCUSATE SODIUM 100 MG (COLACE) CAP PO SCH ×2 (08:22→22:13)
[2022-06-17] MEDS: SENNA W/DOCUSATE (SENOKOT S) TABLET PO SCH ×2 (08:22→22:13)
[2022-06-17] MEDS: GABAPENTIN 300 MG (NEURONTIN) CAP PO SCH ×2 (08:22→22:13)
[2022-06-17] MEDS: polyethylene glycoL POWDER 17 GM (MIRALAX) PACK PO SCH ×2 (08:23→22:10)
[2022-06-17] MEDS: SENNOSIDES 8.6 MG (SENOKOT) TAB PO SCH ×2 (08:26→22:10)
[2022-06-17] MEDS: DORZOLAMIDE/TIMOLOL (COSOPT) 2-0.68% 10 ML BTL OU SCH ×2 (08:27→22:12)
[2022-06-17] MEDS: BRIMONIDINE 0.2% (ALPHAGAN) OPHTH SOLN 5 ML BTL OD SCH ×2 (08:28→22:11)
[2022-06-17] MEDS ORDERED: CLOPIDOGREL 75 MG (PLAVIX) TABLET PO SCH (09:00)
[2022-06-17] MEDS ORDERED: CATHETER FLUSH 10 ML SYR IVP PRN (12:45)
[2022-06-17] MEDS: CATHETER FLUSH 10 ML SYR IVP SCH ×2 (16:03→22:14)
[2022-06-17] MEDS ORDERED: RIVAROXABAN 15 MG TABLET (XARELTO) PO SCH (17:00)
[2022-06-17 20:30] VITALS: BP 162/73
[2022-06-17] MEDS ORDERED: RIVAROXABAN 10 MG TABLET (XARELTO) PO SCH (21:00)
[2022-06-17] MEDS: LATANOPROST 0.005% (XALATAN) OPHTH SOLN 2.5 ML OU SCH (22:13)
--- NOTE | 2022-06-18 04:25 | PM&R Progress Note ---
Subjective HPI/CC On Admission Date Seen by Provider: Jun 18, 2022 Time Seen by Provider: 08:30 Subjective/Events-last exam 06/18/2022: Patient doing pretty well Had desaturation last night but now okay Bowels finally moved 06/17/2022: Blood sugars are once again low Reviewed labs and meds May need transfusion Creat stable and improved No falls Supportive care continues No BM yet so will increase meds Review of Systems General: Fatigue, Malaise Pulmonary: Dyspnea Objective Exam Vital Signs Vital Signs Date Time Temp Pulse Resp B/P (MAP) Pulse Ox O2 Delivery O2 Flow Rate FiO2 06/18/22 20:32 90 Vapotherm 40.00 50 06/18/22 19:51 36.4 60 16 168/74 (105) Capillary Refill : General Appearance: No Apparent Distress, WD/WN, Chronically ill, Obese HEENT: PERRL/EOMI, Normal ENT Inspection, Pharynx Normal Neck: Full Range of Motion, Normal Inspection, Non Tender, Supple, Carotid Bruit Respiratory: Chest Non Tender, Lungs Clear, Normal Breath Sounds, No Accessory Muscle Use, No Respiratory Distress Cardiovascular: Regular Rate, Rhythm, No Edema, No Gallop, No JVD, No Murmur, Normal Peripheral Pulses Gastrointestinal: Normal Bowel Sounds, No Organomegaly, No Pulsatile Mass, Non Tender, Soft Back: Normal Inspection, CVA Tenderness (L), CVA Tenderness (R), Decreased Range of Motion, Muscle Spasm, Vertebral Tenderness Extremity: Normal Capillary Refill, Normal Inspection, Normal Range of Motion (limited ), Non Tender, No Calf Tenderness, No Pedal Edema Neurologic/Psychiatric: Alert, Oriented x3, sand conditioner machine II-XII Norm as Tested, Abnormal Gait, Depressed Affect, Motor Weakness Skin: Normal Color, Warm/Dry Lymphatic: No Adenopathy Results/Procedures Lab Patient resulted labs reviewed. FIM Transfers Therapy Code Descriptions/Definitions Functional [place] Measure: 0=Not Assessed/NA 4=Minimal Assistance 1=Total Assistance 5=Supervision or Setup 2=Maximal Assistance 6=Modified [place] 3=Moderate Assistance 7=Complete IndependenceSCALE: Activities may be completed with or without assistive devices. 1-Bspburyxfl-ouxanvt completes the activity by him/herself with no assistance from a helper. 5-Set-up or Clean-up Assistance-helper sets up or cleans up; patient completes activity. [place] assists only prior to or following the activity. 4-Supervision or Touching Assistance-helper provides verbal cues and/or touching/steadying and/or contact guard assistance as patient completes activity. Assistance may be provided throughout the activity or intermittently. 3-Partial/Moderate Assistance-helper does LESS THAN HALF the effort. [place] lifts, holds or supports trunk or limbs, but provides less than half the effort. 2-Substantial/Maximal Assistance-helper does MORE THAN HALF the effort. [place] lifts or holds trunk or limbs and provides more than half the effort. 1-Jlhbxulfp-gnzmrq does ALL the effort. Patient does none of the effort to complete the activity. Or, the assistance of 2 or more helpers is required for the patient to complete the activity. If activity was not attempted, code reason: 7-Patient Refused. 9-Not Applicable-not attempted and the patient did not perform the activity before the current illness, exacerbation or injury. 10-Not Attempted due to Environmental Limitations-(lack of equipment, weather restraints, etc.). 88-Not Attempted due to Medical Conditions or Safety Concerns. Roll Left to Right (QC): 1 Sit to Lying (QC): 1 Sit to Stand (QC): 1 Chair/Fzo-hp-Goodo Xfer(QC): 1 Car Transfer (QC): 88 Gait Training Does the Patient Walk?: Yes Walk 10 feet (QC): 88 Walk 50 ft with 2 Turns(QC): 88 Walk 150 ft (QC): 88 Walking 10ft/uneven surface-QC: 88 Gait Assistive Device: Handheld Assist Wheelchair Training Does the Pt Use a Wheelchair?: No Wheel 50 ft with 2 turns (QC): 9 Wheel 150 ft (QC): 9 Stair Training 1 Step (curb) (QC): 88 4 Steps (QC): 9 12 Steps (QC): 9 Balance Picking up an Object (QC): 88 Assessment/Plan Assessment and Plan Assess & Plan/Chief Complaint Assessment: Slow recovery from lumbar spine surgery COVID infection- isolation until 06/22/22 s/p bacterial PNA Low vision from DM retinopathy HTN CKD Stage III HLP Pacemaker PAF OAC restart 06/17/[address] Fall to prevent spinal hematoma Post op constipation Plan: Monitor sugars Monitor reat BM regimen PT OT Isolation until Saturday Restart Xarelto 06/17/22 06/17/2022: BM regimen Monitor closely 06/18/2022: Continue rehab Supportive care (1) Lumbar spinal stenosis (2) COVID (3) Stage 3b chronic kidney disease (4) Coronary artery disease without angina pectoris (5) Paroxysmal atrial fibrillation (6) Type 2 diabetes mellitus with complication (7) Mixed hyperlipidemia (8) Cardiac pacemaker in situ (9) Primary hypertension NATHALIA ENNIS DO Jun 18, 2022 04:25
[2022-06-18] MEDS: PANTOPRAZOLE 40 MG (PROTONIX) TAB PO SCH ×2 (06:20→16:28)
[2022-06-18] MEDS: CYANOCOBALAMIN 1,000 MCG (VITAMIN B-12) TABLET PO SCH (06:20)
[2022-06-18] MEDS: DOXYCYCLINE 100 MG (VIBRAMYCIN) TABLET PO SCH ×2 (06:21→16:28)
[2022-06-18] MEDS: CATHETER FLUSH 10 ML SYR IVP SCH ×2 (06:22→15:22)
[2022-06-18] MEDS: inSUlin ASPART (NovoLOG) 1 UNIT/0.01 ML (CHARGE PER UNIT) SC SCH ×3 (06:26→16:28)
[2022-06-18 07:12] VITALS: BP 165/71
[2022-06-18] MEDS: GABAPENTIN 300 MG (NEURONTIN) CAP PO SCH ×2 (07:51→20:37)
[2022-06-18] MEDS: SENNA W/DOCUSATE (SENOKOT S) TABLET PO SCH ×2 (07:52→20:42)
[2022-06-18] MEDS: amLODIPine 5 MG (NORVASC) TAB PO SCH (07:52)
[2022-06-18] MEDS: NIRMATRELVIR/RITONAVIR (PAXLOVID) TABLET PO SCH (07:53)
[2022-06-18] MEDS: DOCUSATE SODIUM 100 MG (COLACE) CAP PO SCH ×2 (07:53→20:37)
[2022-06-18] MEDS: SENNOSIDES 8.6 MG (SENOKOT) TAB PO SCH ×2 (07:54→20:42)
[2022-06-18] MEDS: DORZOLAMIDE/TIMOLOL (COSOPT) 2-0.68% 10 ML BTL OU SCH ×2 (07:57→20:41)
[2022-06-18] MEDS: BRIMONIDINE 0.2% (ALPHAGAN) OPHTH SOLN 5 ML BTL OD SCH ×2 (07:57→20:41)
[2022-06-18 07:58] VITALS: BP 165/71
[2022-06-18 08:00] VITALS: BP 158/75
--- NOTE | 2022-06-18 08:27 | Occupational Therapy Eval ---
OT Evaluation-General/PLF Medical Diagnosis Admission Date Jun 16, 2022 at 12:30 Medical Diagnosis: COVID +, s/p L5-Pelvis PSIF Onset Date: Jun 13, 2022 Therapy Diagnosis Therapy Diagnosis: reduced adl status Height/Weight Height (Feet): 5 Height (Inches): 10.00 Weight (Pounds): 200 Weight (Ounces): 1.6 Precautions Precautions/Isolations: Airborne Isolation, Contact Isolation, Fall Prevention Comments Spinal precautions, LSO brace donned when up Weight Bear Status Weight Bearing Restriction: Weight Bearing/Tolerated Referral Physician: Linus Referral Reason: Evaluation/Treatment Medical History Pertinent Medical History: CAD, CVA, DM, GERD, Heart Failure, HTN Current History Pt initially intended to admit to ARU s/p lumbar surgery, however prior to d/c he tested positive for Covid. He was transferred to medical floor before coming down to ARU. Pt is a poor historian, confused. Per patient, he lives with his girlfriend Sacha (who is also in "bad shape"). He states that he was indep with adls and that he and sacha share IADL responsibilities. Pt reports using both a walker and a cane. Pt is legally blind but able to see shadows and figures. Does better with good lighting. Reviewed History: Yes Social History Home: Single Level Current Living Status: Significant Other ADL-Prior Level of Function SCALE: Activities may be completed with or without assistive devices. 0-Dgxvibdbro-kuciyqv completes the activity by him/herself with no assistance from a helper. 5-Set-up or Clean-up Assistance-helper sets up or cleans up; patient completes activity. [place] assists only prior to or following the activity. 4-Supervision or Touching Assistance-helper provides verbal cues and/or touching/steadying and/or contact guard assistance as patient completes activity. Assistance may be provided throughout the activity or intermittently. 3-Partial/Moderate Assistance-helper does LESS THAN HALF the effort. [place] lifts, holds or supports trunk or limbs, but provides less than half the effort. 2-Substantial/Maximal Assistance-helper does MORE THAN HALF the effort. [place] lifts or holds trunk or limbs and provides more than half the effort. 7-Utyzxclbz-molutq does ALL the effort. Patient does none of the effort to complete the activity. Or, the assistance of 2 or more helpers is required for the patient to complete the activity. If activity was not attempted, code reason: 7-Patient Refused. 9-Not Applicable-not attempted and the patient did not perform the activity before the current illness, exacerbation or injury. 10-Not Attempted due to Environmental Limitations-(lack of equipment, weather restraints, etc.). 88-Not Attempted due to Medical Conditions or Safety Concerns. Self Care: Unknown Functional Cognition: Unknown DME/Equipment: Bath Chair, Shower Drive Self: No OT Current Status Subjective Pt initially reports back pain as 10/10 while supine. Towards end of session, pt reports pain has slightly improved. Co-treat with PT for part of treatment ([id number]) secondary to impaired vision, high pain levels, poor cognition, fatigue, and poor safety. Mental Status/Objective Patient Orientation: Person, Confused Attachments: IV, Oxygen (5.5L, NC) Current Glasses/Contacts: Yes Hearing Aids: No Dentures/Partials: No Hand Dominance: Left Upper Extremity ROM ~100 degrees AROM ,bilateral shoulder flexion, ~120 degrees AAROM Elbow-distally: WNL Upper Extremity Strength Not formally tested secondary to recent back surgery Likely 3-/5 for shoulders 3+/5 elbows-distally ADL-Treatment Eating (QC): 5 Oral Hygiene (QC): 7 Shower/Bathe Self (QC): 3 Upper Body Dressing (QC): 2 Lower Body Dressing (QC): 1 On/Off Footwear (QC): 1 Toileting Hygiene (QC): 1 Pt unaware of spinal precautions despite being taught by this therapist last week. Poor attention/cognition, requiring repetition and simplification of cues. Mod a to sit EOB. Sponge bath performed; majority in sitting. Post cues, pt able to wash upper body and upper thighs without physical assistance. Dependent to wash below knees secondary to spinal precautions and poor hip flexibility. Due to inability to complete figure 4 method, pt is dependent to thread BLE's into brief. Unsure if pt will be able to manage AE due to cognition and visual deficits. Pt is blind but able to see shadows; slight improvement with good lighting. At this time, pt does not have any clothing available, thus new gown donned. MAX A to don LSO brace. Mod a to stand, once standing min a needed for s teadying. Due to heavy reliance on BUE support on walker, pt is dependent to pull brief over hips. Again, full assist to don socks due to inability to reach feet while adhering to spinal precautions. Pt ambulated ~5 feet to recliner with min and use of walker. Max cues for safety, walker management, object avoidance, and directional cues. Pt sat to complete LB exercises with goal to improve strength and endurance needed for functional tasks. Pt often closing eyes and needs cues to waken. Pt currently on 5.5L, NC. Oxygen fluctuates from 90-95% throughout adls. Education OT Patient Education: Correct positioning, Modified ADL techniques, Purpose of tx/functional activities, Reviewed precautions, Rehab process, Safety issues, T ransfer techniques Teaching Recipient: Patient Teaching Methods: Demonstration, Discussion Response to Teaching: Verbalize Understanding, Reinforcement Needed BIMS CAM BIMS Expression of Ideas and Wants: Difficulty Understanding Verbal Content: Sometimes Understands Brief Interview/Mental Status: Yes IRF ANTONINA BIMS: IRF ANTONINA BIMS Response (Comments) Value Repitition of Three Words Two 2 Recalls Socks No, Could Not Recall 0 Recalls Blue No, Could Not Recall 0 Recalls Bed No, Could Not Recall 0 Year Missed by 5 Yrs/No Answer 0 Month Accurate Within 5 Days 2 Day Incorrect or No Answer 0 Total 4 Notes: 10/20 CAM Mental Status Change/Baseline: 1 Inattention: 2 Disorganized thinkin Altered level of consciousness: 0 OT Short Term Goals Short Term Goals Time Frame: Jun 27, 2022 Eatin Oral hygiene: 4 Toileting hygiene: 3 Shower/bathe self: 3 Upper body dressin Lower body dressin Putting on/taking off footwear: 2 OT Fpc Goals Fpc Goals Time Frame: Jul 06, 2022 Eating (QC): 5 Oral Hygiene (QC): 5 Toileting Hygiene (QC): 4 Shower/Bathe Self (QC): 4 Upper Body Dressing (QC): 5 Lower Body Dressing (QC): 4 On/Off Footwear (QC): 4 Additional Goals: 1-Demonstrate ADL Tasks, 2-Verbalize Understanding, 3- ImproveStrength/Abena 1=Demonstrate adherence to instructed precautions during ADL tasks. 2=Patient will verbalize/demonstrate understanding of assistive devices/modifications for ADL. 3=Patient will improve strength/tolerance for activity to enable patient to perform ADL's. OT Education/Plan Problem List/Assessment Assessment: Decreased Activ Tolerance, Decreased Safety Aware, Decreased UE Strength, Impaired Bed Mobility, Impaired Cognition, Impaired Funct Balance, Impaired I ADL's, Impaired Self-Care Skills, Restricted Funct UE ROM, Visual- Perceptual Deficit Discharge Recommendations Plan/Recommendations: Continue POC Therapy Discharge Recommendati: Post Acute OT Treatment Plan/Plan of Care Treatment,Training & Education: Yes Patient would benefit from OT for education, treatment and training to promote independence in ADL's, mobility, safety and/or upper extremity function for ADL's. Plan of Care: ADL Retraining, Cognitive Retraining, Concurrent Therapy, Functional Mobility, Group Exercise/Act as Ind, Orthotic Fitting/Training, UE Funct Exercise/Act Treatment Duration: Jul 06, 2022 Frequency: At least 5 of 7 days/Wk (IRF) Estimated Hrs Per Day: 1.5 hours per day (75-90 min/day ) Rehab Potential: Poor Time Start Time: 07:30 Stop Time: 08:45 DATE: Jun 18, 2022 Total Time Billed (hr/min): 75 Billed Treatment Time 1 visit ADL x4 (60 min) EX (15 min) Co-treat ([id number]) Suzanna Lizama OT Jun 18, 2022 08:27
--- NOTE | 2022-06-18 08:59 | Physical Therapy Daily Note ---
PT Daily Note-Current Subjective Pt sitting EOB working w/OT upon arrival. Pt agrees to PT/OT partial co-treat. Pain Section J - Health Conditions 1. Rarely or not at all 2. Occasionally 3. Frequently 4. Almost constantly 8. Unable to answer Pain Effect on Sleep: 4 Pain Interference with Therapy: 4 Pain Interference w/Day-to-Day: 4 Mental Status Patient Orientation: Person, Confused Attachments: Oxygen (5.5 L) Transfers SCALE: Activities may be completed with or without assistive devices. 8-Pkqjqksljo-eztgkmc completes the activity by him/herself with no assistance from a helper. 5-Set-up or Clean-up Assistance-helper sets up or cleans up; patient completes activity. [place] assists only prior to or following the activity. 4-Supervision or Touching Assistance-helper provides verbal cues and/or to uching/steadying and/or contact guard assistance as patient completes activity. Assistance may be provided throughout the activity or intermittently. 3-Partial/Moderate Assistance-helper does LESS THAN HALF the effort. [place] lifts, holds or supports trunk or limbs, but provides less than half the effort. 2-Substantial/Maximal Assistance-helper does MORE THAN HALF the effort. [place] lifts or holds trunk or limbs and provides more than half the effort. 8-Kaitopsyw-brooxa does ALL the effort. Patient does none of the effort to complete the activity. Or, the assistance of 2 or more helpers is required for the patient to complete the activity. If activity was not attempted, code reason: 7-Patient Refused. 9-Not Applicable-not attempted and the patient did not perform the activity before the current illness, exacerbation or injury. 10-Not Attempted due to Environmental Limitations-(lack of equipment, weather restraints, etc.). 88-Not Attempted due to Medical Conditions or Safety Concerns. Sit to Stand (QC): 3 Weight Bearing Full Weight Bearing Full Weight Bearing Pt to be in LSO brace when standing Gait Training Does the Patient Walk?: Yes Distance: 5' Gait Assistive Device: FWW Exercises Supine Ex: Quad Set, Glut sets, Heel Slides, Hip abd/add Supine Reps: 15 Seated Therapy Exercises: Ankle pumps, Sit to stand, Long arc quads, Hip flexion, Glut set Seated Reps: 15 Treatments Co-treat with PT for part of treatment ([id number]) secondary to impaired vision, high pain levels, poor cognition, fatigue, and poor safety. Pt was finishing bathing upon arrival. Pt with assist from WARP TIER & OT dons brief, stands and TF to recliner. O2 is monitored as SOA. 93% (reported improvement from laying) after TF to recliner and sitting up. Pt completes Seated & Supine EX at recliner. Pt is repositioned to comfort with all needs met, call light in hand. Assessment Current Status: Fair Progress Limited vision, retention deficient and cognition are demonstrated during tx and affect participation. PT Medical Biller Goals Medical Biller Goals PT Nursing Home Goals Time Frame: Jul 07, 2022 Roll Left & Right (QC): 4 Sit to Lying (QC): 4 Lying-Sitting on Side/Bed(QC): 4 Sit to Stand (QC): 4 Chair/Nvp-dg-Ojtom Xfer(QC): 4 Toilet Transfer (QC): 4 Car Transfer (QC): 4 Does the Patient Walk: Yes Walk 10 feet (QC): 4 Walk 50ft with 2 Turns (QC): 4 Walk 150 ft (QC): 4 Walking 10ft on Uneven Surface: 4 1 Step (curb) (QC): 4 4 Steps (QC): 9 12 Steps (QC): 9 Picking up an Object (QC): 4 Does the Pt use WC or Scooter?: No Wheel 50 feet with 2 turns (QC: 9 Wheel 150 feet: 9 PT Plan Problem List Problem List: Activity Tolerance, Functional Strength, Transfer Treatment/Plan Treatment Plan: Continue Plan of Care Treatment Duration: Jul 07, 2022 Frequency: At least 5 of 7 days/Wk (IRF) Estimated Hrs Per Day: 1.5 hours per day Patient and/or Family Agrees t: Yes Safety Risks/Education Patient Education: Transfer Techniques, Correct Positioning, Safety Issues Teaching Recipient: Patient Teaching Methods: Discussion Response to Teaching: Verbalize Understanding Time Time In: 800 Time Out: 900 DATE: Jun 18, 2022 Total Billed Treatment Time: 60 Total Billed Treatment Co-treat for 45m ([id number]) 1, FA x2 (30m) & EX (30m) ELEANOR WILD WARP TIER Jun 18, 2022 08:59
[2022-06-18] MEDS ORDERED: IRON SUCROSE 200 MG/10 ML (VENOFER) VIAL IV SCH (09:00)
[2022-06-18] MEDS: polyethylene glycoL POWDER 17 GM (MIRALAX) PACK PO SCH ×2 (09:01→20:42)
--- NOTE | 2022-06-18 11:07 | ST Cognitive Linguistic Eval ---
Speech Evaluation-General Medical Diagnosis COVID +, s/p L5-Pelvis PSIF Onset Date: Jun 13, 2022 Therapy Diagnosis Therapy Diagnosis: Impaired Cognition Medical History Pertinent Medical History: CAD, CVA, DM, GERD, Heart Failure, HTN Current History The patient is a 72 year-old male with a past medical history of CAD, CVA, DM, GERD, heart failure, and HTN, who was initially intended to admit to ARU s/p lumbar surgery, however prior to d/c he tested positive for COVID. The patient was transferred to medical floor before coming to ARU on 06/16/22. Reviewed History: Yes Social History Current Living Status: Significant Other Speech PLF-Current Status Prior Level of Function The patient displayed suspected confusion throughout informal conversation regarding the patient's prior level of cognitive function. The patient was unable to provide specific information and continued to request to return to sleep (closing his eyes frequently throughout the interaction). Throughout the evaluation, the clinician was able to visit with the patient's friend, Opal. Per Opal, "All those medications have done it, it's those diabetic ones, he's one four, they just keep stacking it." Unfortunately, the clinician was unable to receive a clear answer regarding the patient's prior level of cognitive function from his friend. Subjective The patient was lying in his recliner, sleeping upon entrance to his room by the clinician. With moderate verbal cueing and encouragement, the patient woke and greeted the clinician. The patient immediately stated, "I keep hearing and seeing things that aren't here so I didn't know who you were." The clinician introduced herself to the patient and stated why she was present in his room. The patient was agreeable to participation in the cognitive evaluation, however, requested, "how much longer is this going to be," every few minutes until the completion of the evaluation. The patient appears greatly confused on this date. The patient's and the patient's girlfriend's statements were shared with the patient's RN. The patient has reduced eye sight which was documented in his chart. Language Eval: Auditory Comprehends Simple Yes/No Ques: Moderate (Repetition frequently required. With repetition, accuracy was displayed.) Follows 1-Step Commands: Moderate (Frequent repetition required for accuracy.) Follows General Conversations: Moderate (The clinician required frequent redirection to the task and topic conversation.) Language Eval: Verbal Language Completes Spontaneous Greeting: Functional Produces Auto, Serial Info: Moderate Word Finding: Severe States Basic Personal Info: Moderate Cognitive Patient Orientation The patient was oriented to self, month, and day of the week, independently. Objective Cognitive Domain Attention: Severe Memory: Severe Problem Solving: Severe Executive Functions: Severe Visuospatial Skills: Severe Composite Severity Rating: Severe Objective Formal/Standardized Tests [facility] Status (UMS) Results The patient demonstrated a +2/24 on the SLUMS correlating to a severe neurocognitive impairment. Oral Motor/Speech Production The patient does not display dysarthria or apraxia of speech at this time. The patient is 100% intelligible in known and unknown contexts. Impression The patient displayed confusion throughout the cognitive linguistic evaluation. The clinician attempted to clarify the patient's baseline cognitive level with the patient, as well as, the patient's friend (Opal) however a clear response from either individual was not obtained. The clinician will continue to visit with additional treating therapists to provide an appropriate plan of care moving forward. The patient's high level of confusion (including hallucinations) were shared with the patient's RN at the close of the session. At this time, the patient's confusion causes a great barrier towards the cognitive rehabilitation progress. Speech Short Term Goals Short Term Goals Short Term Goals 1. The patient will demonstrate 90% accuracy with orientation information with mild clinician verbal and visual cues. Time Frame-STG: One Week. Speech Mcc Goals [employer] Work[employer] Foreman Goals 1. The patient will demonstrate increased cognitive linguistic skills for safe discharge to the least restrictive environment. Time Frame: Two Weeks. Speech-Plan Treatment Plan Speech Therapy Treatment Plan: Continue Plan of Care Treatment Duration: Jul 06, 2022 Frequency: Modified Program (IRF) Estimated Hrs Per Day: .5 hour per day Rehab Potential: Poor Safety Risks/Education Teaching Recipient: Patient Teaching Methods: Discussion Response to Teaching: Unable to Comprehend, Reinforcement Needed Education Topics Provided: Results, Recommendations, Plan of Care Time Speech Therapy Time In: 10:00 Speech Therapy Time Out: 10:30 DATE: Jun 18, 2022 Total Billed Time: 30 Billed Treatment Time MARYANN Leon ELIZABETH Jun 18, 2022 11:07
--- NOTE | 2022-06-18 11:46 | Physical Therapy Daily Note ---
PT Daily Note-Current Subjective Pt sitting up in recliner upon arrival. Pt agrees to PT but again remains very drowsy and difficult to keep awake. Pain Location: No Pain Reported Section J - Health Conditions 1. Rarely or not at all 2. Occasionally 3. Frequently 4. Almost constantly 8. Unable to answer Pain Effect on Sleep: 4 Pain Interference with Therapy: 4 Pain Interference w/Day-to-Day: 4 Mental Status Patient Orientation: Person, Confused Attachments: Other-See Comments (TLSO Brace) Transfers SCALE: Activities may be completed with or without assistive devices. 2-Aszqmlsuli-cctmhws completes the activity by him/herself with no assistance from a helper. 5-Set-up or Clean-up Assistance-helper sets up or cleans up; patient completes activity. Winifrede assists only prior to or following the activity. 4-Supervision or Touching Assistance-helper provides verbal cues and/or touching/steadying and/or contact guard assistance as patient completes activity. Assistance may be provided throughout the activity or intermittently. 3-Partial/Moderate Assistance-helper does LESS THAN HALF the effort. Winifrede lifts, holds or supports trunk or limbs, but provides less than half the effort. 2-Substantial/Maximal Assistance-helper does MORE THAN HALF the effort. Winifrede lifts or holds trunk or limbs and provides more than half the effort. 0-Nkjxyflnf-jbrcwm does ALL the effort. Patient does none of the effort to complete the activity. Or, the assistance of 2 or more helpers is required for the patient to complete the activity. If activity was not attempted, code reason: 7-Patient Refused. 9-Not Applicable-not attempted and the patient did not perform the activity before the current illness, exacerbation or injury. 10-Not Attempted due to Environmental Limitations-(lack of equipment, weather restraints, etc.). 88-Not Attempted due to Medical Conditions or Safety Concerns. Weight Bearing Full Weight Bearing Full Weight Bearing Pt to be in LSO brace when standing Exercises Supine Ex: Ankle pumps, Quad Set, Glut sets, Heel Slides, Hip abd/add Supine Reps: 15 Treatments Pt completes Supine EX in recliner as it is difficult to keep pt awake. All needs met, call light in lap. Assessment Current Status: Fair Progress Pt very drowsy and difficult to keep awake during tx. PT Ethics Officer Goals Ethics Officer Goals PT Ethics Officer Goals Time Frame: Jul 07, 2022 Roll Left & Right (QC): 4 Sit to Lying (QC): 4 Lying-Sitting on Side/Bed(QC): 4 Sit to Stand (QC): 4 Chair/Rqh-bf-Tlldk Xfer(QC): 4 Toilet Transfer (QC): 4 Car Transfer (QC): 4 Does the Patient Walk: Yes Walk 10 feet (QC): 4 Walk 50ft with 2 Turns (QC): 4 Walk 150 ft (QC): 4 Walking 10ft on Uneven Surface: 4 1 Step (curb) (QC): 4 4 Steps (QC): 9 12 Steps (QC): 9 Picking up an Object (QC): 4 Does the Pt use WC or Scooter?: No Wheel 50 feet with 2 turns (QC: 9 Wheel 150 feet: 9 PT Plan Problem List Problem List: Activity Tolerance, Functional Strength Treatment/Plan Treatment Plan: Continue Plan of Care Treatment Duration: Jul 07, 2022 Frequency: At least 5 of 7 days/Wk (IRF) Estimated Hrs Per Day: 1.5 hours per day Patient and/or Family Agrees t: Yes Time Time In: 1125 Time Out: 1145 DATE: Jun 18, 2022 Total Billed Treatment Time: 20 Total Billed Treatment 1, EX (20m) ELEANOR WILD PTA Jun 18, 2022 11:46
--- NOTE | 2022-06-18 12:17 | Progress Note ---
LETTY ALEMAN 06/18/22 1217: Progress Note S: Manuel Cochran, goes by Martin, is a 72yo M who was admitted to the [facility] 4th floor 06/13/22 from [facility] with a chief complaint of malaise/myalgia, sore throat, and back pain. Martin was initially intended to be brought to the inpatient rehab unit for S/P lumbar surgery done in [place], but prior to discharge he tested positive for Covid. He was then brought into room 433 to be quarantined, and continually monitored. On talking with patient he was fatigued and oriented x3 but very frustrated, he hasn't had much education and in conversation is mildly obtuse. Multple times in conversation patient appeared to almost fall asleep and start snoring. He did not appear to be toxic, and denied any c/o SOB, CP, fevers, chills, or naseua. He remained quarantined where he had very limited mobility due to the severity of his back pain that he often rated as an 8/10, this caused him to have several instances where he wet the bed adding to his frustration, he initially had a fever despite denying any, which went down to NL on 06/15/22, his lungs continued to sound congested and for pneumonia PPx he was given Abx. Anemia also was a concern where Hgb was around 7.6, so Iron and B12 were administered. His mood gradually improved but he had frustrations with his foods temperature and would call his girlfriend Opal to help calm him down. It is planned to move him to the IRF of [facility], where he will remain in quarentine until he meets his 10 day requirement, while still working with OT/PT to help alleviate pain and improve debility. Martin continues to behave as if he is confused as to why he is in the hospital, he complained today of substernal chest pain and problems breathing and cou ghing, his blood sugar has been low for past couple days. He was increased on his oxygen from 1L to 5L which seems to be keeping him stable. He's visibly frustrated with having to stay in the hospital, but is still moderately weak and his back still yields severe pain with exertion. He mentioned that his food is better and he is eating more. Nurses commented on urinary incontinence and that he doesn't know when he is going to void ahead of actually doing it. O: V/S: T(36.9) HR(60) RR(20) BP(158/75) SpO2(94, nasal cannula(5.5)) General Appearance: No Apparent Distress, WD/WN, Chronically ill, Obese Neck: Full Range of Motion, Normal Inspection, Non Tender, Supple, Carotid Bruit Respiratory: Chest Non Tender, pulmonary congestion, vibratory inhalation, Accessory Muscle Use with deep inhalation, No Respiratory Distress Cardiovascular: Regular Rate, Rhythm, No Edema, No Gallop, No JVD, No Murmur, Normal Peripheral Pulses Gastrointestinal: Normal Bowel Sounds, No Organomegaly, No Pulsatile Mass, Non Tender, Soft Back: Normal Inspection, CVA Tenderness (L), CVA Tenderness (R), Decreased Range of Motion, Muscle Spasm, Vertebral Tenderness Extremity: Normal Capillary Refill, Normal Inspection, Normal Range of Motion (limited ), Non Tender, No Calf Tenderness, No Pedal Edema Neurologic/Psychiatric: Alert, Oriented x3, grinder operator surface tool II-XII Norm as Tested, Abnormal Gait, Depressed Affect, Motor Weakness Skin: Normal Color, Warm/Dry Lymphatic: No Adenopathy Labs: Hgb(7.7) Glucometer (70 in AM - 110 in PM) A: Slow recovery from lumbar spine surgery COVID infection - isolation until 06/22/22 s/p bacterial PNA Low vision from DM retinopathy HTN CKD Stage III HLP Pacemaker PAF Post op constipation P: Monitor sugars Monitor reat BM regimen PT OT Isolation until Saturday Restart Xarelto 06/17/22 OAC restart 06/17/[address] Fall to prevent spinal hematoma SHERINE ENNIS DO 06/19/22 0459: Supervisory-Addendum Brief Verification & Attestation Participated in pt care: history, MDM, physical Personally performed: exam, history, MDM, supervision of care Care discussed with: Medical Student Procedures: n/a Results interpretation: Verified all documentation Verification and Attestation of Medical Student E/M Service A medical student performed and documented this service in my presence. I reviewed and verified all information documented by the medical student and made modifications to such information, when appropriate. I personally performed the physical exam and medical decision making. Sherine Ennis Jun 19, 2022,04:59 LETTY ALEMAN Jun 18, 2022 12:17 SHERINE ENNIS DO Jun 19, 2022 04:59
[2022-06-18 19:51] VITALS: BP 168/74
[2022-06-18] MEDS: LATANOPROST 0.005% (XALATAN) OPHTH SOLN 2.5 ML OU SCH (20:42)
[2022-06-18] MEDS ORDERED: RIVAROXABAN 10 MG TABLET (XARELTO) PO SCH (21:00)
--- NOTE | 2022-06-19 08:49 | Therapy Team Discharge Summary ---
Therapy Discharge Summary Discharge Recommendations Date of Discharge Jun 18, 2022 at 20:54 Physical Therapy Patient came to rehab with COVID +, s/p L5-Pelvis PSIF. Upon evaluation patient performed bed mobility and transfers with dependence, ambulated only a couple of feet. Patient has been performing bed mobility and transfer training, balance and endurance training, functional strengthening. Patient was only here a couple of days before needing to be transferred to the ICU due to medical complications. Patient has not met any medical terminologist goals. Patient will be d ischarged from PT at this time. Roll Left to Right (QC): 1 Sit to Lying (QC): 1 Lying to Sitting/Side of Bed(Q: 1 Sit to Stand (QC): 3 Chair/Ebu-em-Bishn Xfer(QC): 1 Toilet Transfer (QC): 1 Car Transfer (QC): 88 Does the Patient Walk: Yes Mode of Locomotion: Walk Anticipated Mode of Locomotion: Walk Walk 10 feet (QC): 88 Walk 50 ft with 2 Turns(QC): 88 Walk 150 ft (QC): 88 Walking 10ft on uneven surface: 88 Distance: 2ft Gait Assistive Device: FWW Does the Pt Use a Wheelchair: No Wheel 50 ft with 2 turns (QC): 9 Wheel 150 ft (QC): 9 1 Step (curb) (QC): 88 4 Steps (QC): 9 12 Steps (QC): 9 Balance Sitting Static: Good Balance Sitting Dynamic: Good Balance-Standing Static: Fair Picking up an Object (QC): 88 Occupational Therapy Decreased Activ Tolerance, Decreased Safety Aware, Decreased UE Strength, Impai red Bed Mobility, Impaired Cognition, Impaired Funct Balance, Impaired I ADL's, Impaired Self-Care Skills, Restricted Funct UE ROM, Visual-Perceptual Deficit Eating (QC): 5 Oral Hygiene (QC): 7 Shower/Bathe Self (QC): 3 Upper Body Dressing (QC): 2 Lower Body Dressing (QC): 1 On/Off Footwear (QC): 1 Toileting Hygiene (QC): 1 PT Longterm Goals Field Foreman Goals PT Longterm Goals Time Frame: Jul 07, 2022 Roll Left to Right (QC): 4 Sit to Lying (QC): 4 Lying-Sitting on Side/Bed(QC): 4 Sit to Stand (QC): 4 Chair/Oyh-og-Aqaua Xfer(QC): 4 Toilet/Commode Transfer (QC): 4 Car Transfer (QC): 4 Does the Patient Walk: Yes Walk 10 feet (QC): 4 Walk 10ft-Uneven Surface(QC): 4 Walk 50ft with 2 Turns (QC): 4 Walk 150 ft (QC): 4 Does the Pt use WC or Scooter?: No Wheel 50 feet with 2 turns (QC: 9 Wheel 150 feet: 9 1 Step (curb) (QC): 4 4 Steps (QC): 9 12 Steps (QC): 9 Picking up an Object (QC): 4 OT Field Foreman Goals Longterm Goals Time Frame: Jul 06, 2022 Acute change in mental status: 1 Inattention: 2 Disorganized thinkin Altered level of consciousness: 0 Eating (QC): 5 Oral Hygiene (QC): 5 Toileting Hygiene (QC): 4 Shower/Bathe Self (QC): 4 Upper Body Dressing (QC): 5 Lower Body Dressing (QC): 4 On/Off Footwear (QC): 4 Additional Goals: 1-Demonstrate ADL Tasks, 2-Verbalize Understanding, 3- ImproveStrength/Abena 1=Demonstrate adherence to instructed precautions during ADL tasks. 2=Patient will verbalize/demonstrate understanding of assistive devices/modifications for ADL. 3=Patient will improve strength/tolerance for activity to enable patient to perform ADL's. Speech Field Foreman Goals Field Foreman Goals 1. The patient will demonstrate increased cognitive linguistic skills for safe discharge to the least restrictive environment. Time Frame: Two Weeks. LAN AGUIRRE PT Jun 19, 2022 08:49
--- NOTE | 2022-06-19 10:21 | Therapy Team Discharge Summary ---
Therapy Discharge Summary Discharge Recommendations Date of Discharge Jun 18, 2022 at 20:54 Physical Therapy Roll Left to Right (QC): 1 Sit to Lying (QC): 1 Lying to Sitting/Side of Bed(Q: 1 Sit to Stand (QC): 3 Chair/Ess-xa-Ymvkg Xfer(QC): 1 Toilet Transfer (QC): 1 Car Transfer (QC): 88 Does the Patient Walk: Yes Mode of Locomotion: Walk Anticipated Mode of Locomotion: Walk Walk 10 feet (QC): 88 Walk 50 ft with 2 Turns(QC): 88 Walk 150 ft (QC): 88 Walking 10ft on uneven surface: 88 Distance: 2ft Gait Assistive Device: FWW Does the Pt Use a Wheelchair: No Wheel 50 ft with 2 turns (QC): 9 Wheel 150 ft (QC): 9 1 Step (curb) (QC): 88 4 Steps (QC): 9 12 Steps (QC): 9 Balance Sitting Static: Good Balance Sitting Dynamic: Good Balance-Standing Static: Fair Picking up an Object (QC): 88 Occupational Therapy Decreased Activ Tolerance, Decreased Safety Aware, Decreased UE Strength, Impaired Bed Mobility, Impaired Cognition, Impaired Funct Balance, Impaired I ADL's, Impaired Self-Care Skills, Restricted Funct UE ROM, Visual-Perceptual Deficit Eating (QC): 5 Oral Hygiene (QC): 7 Shower/Bathe Self (QC): 3 Upper Body Dressing (QC): 2 Lower Body Dressing (QC): 1 On/Off Footwear (QC): 1 Toileting Hygiene (QC): 1 Speech-Language Pathology The patient was transferred to the acute medical floor from the acute rehabilitation unit at this time. At the time of transfer, the patient had completed the speech language pathology evaluation, only. Due to this, the patient did not have the necessary time available to work towards achievement of the goals placed. The patient will be discharged from skilled speech pathology at this time. PT Fdc Goals Life Trainer Goals PT Fdc Goals Time Frame: Jul 07, 2022 Roll Left to Right (QC): 4 Sit to Lying (QC): 4 Lying-Sitting on Side/Bed(QC): 4 Sit to Stand (QC): 4 Chair/Dua-xr-Nepzq Xfer(QC): 4 Toilet/Commode Transfer (QC): 4 Car Transfer (QC): 4 Does the Patient Walk: Yes Walk 10 feet (QC): 4 Walk 10ft-Uneven Surface(QC): 4 Walk 50ft with 2 Turns (QC): 4 Walk 150 ft (QC): 4 Does the Pt use WC or Scooter?: No Wheel 50 feet with 2 turns (QC: 9 Wheel 150 feet: 9 1 Step (curb) (QC): 4 4 Steps (QC): 9 12 Steps (QC): 9 Picking up an Object (QC): 4 OT Fdc Goals Life Trainer Goals Time Frame: Jul 06, 2022 Acute change in mental status: 1 Inattention: 2 Disorganized thinkin Altered level of consciousness: 0 Eating (QC): 5 Oral Hygiene (QC): 5 Toileting Hygiene (QC): 4 Shower/Bathe Self (QC): 4 Upper Body Dressing (QC): 5 Lower Body Dressing (QC): 4 On/Off Footwear (QC): 4 Additional Goals: 1-Demonstrate ADL Tasks, 2-Verbalize Understanding, 3-ImproveStrength/Abena 1=Demonstrate adherence to instructed precautions during ADL tasks. 2=Patient will verbalize/demonstrate understanding of assistive devices/modifications for ADL. 3=Patient will improve strength/tolerance for activity to enable patient to perform ADL's. Speech Life Trainer Goals Fdc Goals 1. The patient will demonstrate increased cognitive linguistic skills for safe discharge to the least restrictive environment. NOT MET. The patient was transferred to the acute medical floor from the acute rehabilitation unit at this time. At the time of transfer, the patient had completed the speech la nguage pathology evaluation, only. Due to this, the patient did not have the necessary time available to work towards achievement of the goals placed. Time Frame: Two Weeks. FABIENNE MIX Jun 19, 2022 10:21
--- NOTE | 2022-06-19 11:13 | Therapy Team Discharge Summary ---
Therapy Discharge Summary Discharge Recommendations Date of Discharge Jun 18, 2022 at 20:54 Physical Therapy Roll Left to Right (QC): 1 Sit to Lying (QC): 1 Lying to Sitting/Side of Bed(Q: 1 Sit to Stand (QC): 3 Chair/Ttl-ob-Uoqmb Xfer(QC): 1 Toilet Transfer (QC): 1 Car Transfer (QC): 88 Does the Patient Walk: Yes Mode of Locomotion: Walk Anticipated Mode of Locomotion: Walk Walk 10 feet (QC): 88 Walk 50 ft with 2 Turns(QC): 88 Walk 150 ft (QC): 88 Walking 10ft on uneven surface: 88 Distance: 2ft Gait Assistive Device: FWW Does the Pt Use a Wheelchair: No Wheel 50 ft with 2 turns (QC): 9 Wheel 150 ft (QC): 9 1 Step (curb) (QC): 88 4 Steps (QC): 9 12 Steps (QC): 9 Balance Sitting Static: Good Balance Sitting Dynamic: Good Balance-Standing Static: Fair Picking up an Object (QC): 88 Occupational Therapy Pt admitted to ARU with COVID and s/p L5-Pelvis PSIF. Due to declined in medical status, pt was transferred to ICU. No treatments were provided after evaluation, thus no improvements or goals were made. See below for current levels of assistance. Pt will be discharged from OT at this time. Decreased Activ Tolerance, Decreased Safety Aware, Decreased UE Strength, Impaired Bed Mobility, Impaired Cognition, Impaired Funct Balance, Impaired I ADL's, Impaired Self-Care Skills, Restricted Funct UE ROM, Visual-Perceptual Deficit Eating (QC): 5 Oral Hygiene (QC): 7 Shower/Bathe Self (QC): 3 Upper Body Dressing (QC): 2 Lower Body Dressing (QC): 1 On/Off Footwear (QC): 1 Toileting Hygiene (QC): 1 PT Jail Goals Jail Goals PT Jail Goals Time Frame: Jul 07, 2022 Roll Left to Right (QC): 4 Sit to Lying (QC): 4 Lying-Sitting on Side/Bed(QC): 4 Sit to Stand (QC): 4 Chair/Fce-lu-Vootn Xfer(QC): 4 Toilet/Commode Transfer (QC): 4 Car Transfer (QC): 4 Does the Patient Walk: Yes Walk 10 feet (QC): 4 Walk 10ft-Uneven Surface(QC): 4 Walk 50ft with 2 Turns (QC): 4 Walk 150 ft (QC): 4 Does the Pt use WC or Scooter?: No Wheel 50 feet with 2 turns (QC: 9 Wheel 150 feet: 9 1 Step (curb) (QC): 4 4 Steps (QC): 9 12 Steps (QC): 9 Picking up an Object (QC): 4 OT Jail Goals Jail Goals Time Frame: Jul 06, 2022 Acute change in mental status: 1 Inattention: 2 Disorganized thinkin Altered level of consciousness: 0 Eating (QC): 5 Oral Hygiene (QC): 5 Toileting Hygiene (QC): 4 Shower/Bathe Self (QC): 4 Upper Body Dressing (QC): 5 Lower Body Dressing (QC): 4 On/Off Footwear (QC): 4 Additional Goals: 1-Demonstrate ADL Tasks, 2-Verbalize Understanding, 3- ImproveStrength/Abena 1=Demonstrate adherence to instructed precautions during ADL tasks. 2=Patient will verbalize/demonstrate understanding of assistive devices/mo difications for ADL. 3=Patient will improve strength/tolerance for activity to enable patient to perform ADL's. 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 The patient will demonstrate increased cognitive linguistic skills for safe discharge to the least restrictive environment. NOT MET. The patient was transferred to the acute medical floor from the acute rehabilitation unit at this time. At the time of transfer, the patient had completed the speech language pathology evaluation, only. Due to this, the patient did not have the necessary time available to work towards achievement of the goals placed. Time Frame: Two Weeks. Suzanna Lizama OT Jun 19, 2022 11:13
== END 2022-06-18 20:54 | disposition short-term general hospital (02) | DRG 559 ==
PROVIDERS: ADMIT Internal Medicine; ATTEND Internal Medicine
PROC: 8E0ZXY6 Isolation (ICD-10-PCS; principal; 2022-06-16)
PROC: 5A0935A Assistance with Respiratory Ventilation, Less than 24 Consecutive Hours, High Flow/Velocity Cannula (ICD-10-PCS; 2022-06-18)
DX: Z47.89 Encounter for other orthopedic aftercare (principal); J12.82 Pneumonia due to coronavirus disease 2019; U07.1 COVID-19; I12.9 Hypertensive chronic kidney disease with stage 1 through stage 4 chronic kidney disease, or unspecified chronic kidney disease; E11.22 Type 2 diabetes mellitus with diabetic chronic kidney disease; E11.65 Type 2 diabetes mellitus with hyperglycemia; N18.32 Chronic kidney disease, stage 3b; E11.319 Type 2 diabetes mellitus with unspecified diabetic retinopathy without macular edema; I48.0 Paroxysmal atrial fibrillation; E78.2 Mixed hyperlipidemia; K21.9 Gastro-esophageal reflux disease without esophagitis; F32.A Depression, unspecified; K59.09 Other constipation; Z79.84 Long term (current) use of oral hypoglycemic drugs; Z91.81 History of falling; R32 Unspecified urinary incontinence; M62.81 Muscle weakness (generalized); R53.81 Other malaise; E11.649 Type 2 diabetes mellitus with hypoglycemia without coma; R26.9 Unspecified abnormalities of gait and mobility; Z95.0 Presence of cardiac pacemaker; Z79.01 Long term (current) use of anticoagulants; Z79.82 Long term (current) use of aspirin; Z83.3 Family history of diabetes mellitus; Z82.49 Family history of ischemic heart disease and other diseases of the circulatory system
CPT/HCPCS: 36415; 80053; 82947; 85025; 94640; 94760

== ENCOUNTER 2022-06-18 20:37 | Inpatient (IN) | payer MEDICARE, OTHER, MEDICAID ==
[~2022-06-18] VITALS: Ht 167.7 cm; Wt 97.1 kg
[2022-06-18] MEDS ORDERED: NS IV 500 ML 500 ML IV PRN (20:45)
[2022-06-18] MEDS ORDERED: HYDROmorphone 2 MG/ML VIAL (DILAUDID) IVP PRN (20:45)
[2022-06-18] MEDS ORDERED: DexMEDEtomidine 250 ML DRIP 250 ML IV SCH (20:45)
--- NOTE | 2022-06-18 21:09 | Progress Note ---
Progress Note Moved from inpatient rehab due to worsening respiratory status from COVID progression. CC: Debility following Lumbar spine surgery by Dr Marshall Fall at [facility] with COVID post operatively with bacterial PNA HPI: See below med surg course. Patient now presents with slow recovery following COVID PNA and complex spine surgery. OAC and antiplatelet medications will be restarted 06/17/[address] Fall. His bowels are still very slow but he is voiding well. Eating better. Kidneys are much improved but has Stage III CKD. Completed Paxlovid. Med-surg: Hospital Course: Manuel Cochran, goes by Martin, is a 72yo M who was admitted to the [facility] 4th floor 06/13/22 from [facility] with a chief complaint of malaise/myalgia, sore throat, and back pain. Martin was initially intended to be brought to the inpatient rehab unit for S/P lumbar surgery done in [place], but prior to discharge he tested positive for Covid. He was then brought into room 433 to be quarantined, and continually monitored. On talking with patient he was fatigued and oriented x3 but very frustrated, he hasn't had much education and in conversation is mildly obtuse. Multple times in conversation patient appeared to almost fall asleep and start snoring. He did not appear to be toxic, and denied any c/o SOB, CP, fevers, chills, or naseua. He remained quarantined where he had very limited mobility due to the severity of his back pain that he often rated as an 8/10, this caused him to have several instances where he wet the bed adding to his frustration, he initially had a fever despite denying any, which went down to NL on 06/15/22, his lungs continued to sound congested and for pneumonia PPx he was given Abx. Anemia also was a concern where Hgb was around 7.6, so Iron and B12 were administered. His mood gradually improved but he had frustrations with his foods temperature and would call his girlfriend Opal to help calm him down. It is planned to move him to the IRF of [facility], where he will remain in quarentine until he meets his 10 day requirement, while still working with OT/PT to help alleviate pain and improve debility. A/P: COVID-pneumonia Hypoxia Recent lumbar stenosis surgery Bacterial pneumonia Chronic kidney disease Low vision due to diabetic retinopathy Anemia postop NATHALIA ENNIS DO Jun 18, 2022 21:09
[2022-06-18] MEDS ORDERED: ONDANSETRON 4 MG (ZOFRAN) ORAL DISSOLVE TAB PO PRN (21:15)
[2022-06-18] MEDS ORDERED: guaiFENesin/CODEINE (ROBITUSSIN AC) 10ML UDC PO PRN (21:15)
[2022-06-18] MEDS ORDERED: ALPRAZolam 0.25 MG (XANAX) TAB PO PRN (21:15)
[2022-06-18] MEDS ORDERED: DOCUSATE SODIUM 100 MG (COLACE) CAP PO PRN (21:15)
[2022-06-18] MEDS ORDERED: ONDANSETRON 4 MG/2 ML (SDV) Z0FRAN IV PRN (21:15)
[2022-06-18] MEDS ORDERED: LACTULOSE SYRUP 10GM/15ML (ENULOSE) 30ML UDC PO PRN (21:15)
[2022-06-18] MEDS ORDERED: cloNIDine 0.1 MG (CATAPRES) TAB PO PRN (21:15)
[2022-06-18] MEDS ORDERED: CALCIUM CARBONATE 500 MG (TUMS) TAB.CHEW PO PRN (21:15)
[2022-06-18] MEDS ORDERED: MELATONIN 3 MG TABLET PO PRN (21:15)
[2022-06-18] MEDS ORDERED: diphenhydrAMINE 50 MG/ML INJ (BENADRYL) IVP PRN (21:15)
[2022-06-18] MEDS ORDERED: polyethylene glycoL POWDER 17 GM (MIRALAX) PACK PO PRN (21:15)
[2022-06-18] MEDS ORDERED: ACETAMINOPHEN 325 MG TABLET PO PRN (21:15)
[2022-06-18] MEDS ORDERED: BISACODYL 10 MG SUPP (DULCOLAX) PR PRN (21:15)
[2022-06-18] MEDS ORDERED: diphenhydrAMINE 25 MG TAB (BENADRYL) PO PRN (21:15)
[2022-06-18] MEDS ORDERED: HYDROmorphone 2 MG/ML VIAL (DILAUDID) IV PRN (21:15)
[2022-06-18] MEDS ORDERED: RELABEL FOR HOME USE MC SCH (21:15)
[2022-06-18] MEDS ORDERED: ANTACID SUSP 30 ML UDC (MYLANTA) PO PRN (21:15)
[2022-06-18] MEDS ORDERED: MILK OF MAGNESIA 400 MG/5 ML 30 ML UDC PO PRN (21:15)
[2022-06-18] MEDS ORDERED: FLEET ENEMA ADULT 1 EA BTL PR PRN (21:15)
[2022-06-18] MEDS ORDERED: RIVAROXABAN 10 MG TABLET (XARELTO) PO SCH (21:15)
[2022-06-18] MEDS ORDERED: DEXTROSE 50% 50 ML (IMS) SYR IV PRN (21:15)
[2022-06-18] MEDS ORDERED: LOPERAMIDE 2 MG (IMODIUM) TABLET PO PRN (21:15)
[2022-06-18] MEDS ORDERED: REMDESIVIR INJ 200 MG in NS (IVPB) 210 ML IV ONE (22:45)
[2022-06-18] MEDS: CATHETER FLUSH 10 ML SYR IVP SCH (23:27)
[2022-06-18 23:49] LABS: BASOPHILS % (AUTO) 0 % (0-10); EOSINOPHILS # (AUTO) 0.1 10^3/uL (0.0-0.3); EOSINOPHILS % (AUTO) 1 % (0-10); HEMATOCRIT 24 % (40-54); HEMOGLOBIN 7.6 g/dL (13.3-17.7); LYMPHOCYTES % (AUTO) 10 % (12-44); MEAN CORPUSCULAR HEMOGLOBIN 28 pg (25-34); MEAN CORPUSCULAR HGB CONC 31 g/dL (32-36); MEAN CORPUSCULAR VOLUME 90 fL (80-99); MEAN PLATELET VOLUME 11.5 fL (9.0-12.2); MONOCYTES # (AUTO) 1.1 10^3/uL (0.0-1.0); MONOCYTES % (AUTO) 11 % (0-12); NEUTROPHILS # (AUTO) 7.9 10^3/uL (1.8-7.8); NEUTROPHILS % (AUTO) 77 % (42-75); PLATELET COUNT 311 10^3/uL (130-400); WHITE BLOOD COUNT 10.3 10^3/uL (4.3-11.0)
[2022-06-18] MEDS ORDERED: RT-ALBUTEROL/IPRATROPIUM 3 ML (DUONEB) VIAL ONE (23:50)
[2022-06-19 00:15] LABS: ALBUMIN 2.7 GM/DL (3.2-4.5); BILIRUBIN,TOTAL 0.3 MG/DL (0.1-1.0); CALCIUM 8.1 MG/DL (8.5-10.1); CREATININE SERUM 1.84 MG/DL (0.60-1.30); POTASSIUM 4.7 MMOL/L (3.6-5.0)
[2022-06-19] MEDS ORDERED: RT-ALBUTEROL/IPRATROPIUM 3 ML (DUONEB) VIAL INH PRN (00:30)
[2022-06-19] MEDS ORDERED: RT-ALBUTEROL/IPRATROPIUM 3 ML (DUONEB) VIAL INH SCH (02:00)
[2022-06-19 03:09] VITALS: BP 149/74
[2022-06-19] MEDS: RT-ALBUTEROL SULF 2.5 MG/3 ML PRE-MIX VIAL INH SCH ×5 (03:09→19:56)
[2022-06-19] MEDS: CATHETER FLUSH 10 ML SYR IVP SCH ×3 (06:00→22:00)
[2022-06-19] MEDS: POTASSIUM CL 10MEQ/50ML IVPB 50 ML IV SCH (06:00)
[2022-06-19] MEDS: MAGNESIUM 1 GM/100 ML IVPB 100 ML IV SCH (06:00)
[2022-06-19] MEDS: KCL 20 MEQ TAB (K-DUR) PO SCH (06:00)
[2022-06-19] MEDS: CYANOCOBALAMIN 1,000 MCG (VITAMIN B-12) TABLET PO SCH (06:35)
[2022-06-19] MEDS: DOXYCYCLINE 100 MG (VIBRAMYCIN) TABLET PO SCH ×2 (06:36→16:13)
[2022-06-19] MEDS: PANTOPRAZOLE 40 MG (PROTONIX) TAB PO SCH ×2 (06:36→16:13)
[2022-06-19] MEDS: inSUlin ASPART (NovoLOG) 1 UNIT/0.01 ML (CHARGE PER UNIT) SC SCH ×4 (06:43→20:32)
[2022-06-19 06:57] LABS: BASOPHILS % (AUTO) 0 % (0-10); EOSINOPHILS % (AUTO) 0 % (0-10); HEMATOCRIT 27 % (40-54); HEMOGLOBIN 8.5 g/dL (13.3-17.7); LYMPHOCYTES # (AUTO) 0.5 10^3/uL (1.0-4.0); LYMPHOCYTES % (AUTO) 5 % (12-44); MEAN CORPUSCULAR HEMOGLOBIN 29 pg (25-34); MEAN CORPUSCULAR HGB CONC 32 g/dL (32-36); MEAN CORPUSCULAR VOLUME 91 fL (80-99); MEAN PLATELET VOLUME 11.3 fL (9.0-12.2); MONOCYTES # (AUTO) 0.2 10^3/uL (0.0-1.0); MONOCYTES % (AUTO) 2 % (0-12); NEUTROPHILS # (AUTO) 10.1 10^3/uL (1.8-7.8); NEUTROPHILS % (AUTO) 92 % (42-75); PLATELET COUNT 369 10^3/uL (130-400)
[2022-06-19 07:20] LABS: ALBUMIN 2.9 GM/DL (3.2-4.5); BILIRUBIN,TOTAL 0.3 MG/DL (0.1-1.0); CALCIUM 8.3 MG/DL (8.5-10.1); CREATININE SERUM 1.79 MG/DL (0.60-1.30); MAGNESIUM 1.6 MG/DL (1.6-2.4); PHOSPHORUS 3.8 MG/DL (2.3-4.7); TOTAL PROTEIN 6.7 GM/DL (6.4-8.2)
[2022-06-19 07:30] VITALS: BP 150/71
[2022-06-19] MEDS ORDERED: REMDESIVIR INJ 200 MG in NS (IVPB) 210 ML IV ONE (08:00)
[2022-06-19] MEDS: amLODIPine 5 MG (NORVASC) TAB PO SCH (08:50)
[2022-06-19] MEDS: GABAPENTIN 300 MG (NEURONTIN) CAP PO SCH ×2 (08:50→20:31)
[2022-06-19] MEDS: BRIMONIDINE 0.2% (ALPHAGAN) OPHTH SOLN 5 ML BTL OD SCH ×2 (08:51→20:31)
[2022-06-19] MEDS: DORZOLAMIDE/TIMOLOL (COSOPT) 2-0.68% 10 ML BTL OU SCH ×2 (08:51→20:31)
--- NOTE | 2022-06-19 09:11 | Diagnostic Imaging Report ---
INDICATION: Respiratory distress. COMPARISON: 06/13/2022. FINDINGS: Portable chest shows cardiac enlargement. Increasing interstitial infiltrates more prominent on the left. Probable small right basilar pleural effusion. Pacemaker on the left unchanged. PICC line on the left also again noted. IMPRESSION: Cardiomegaly with increasing interstitial infiltrates more prominent on the left. Dictated by: Dictated on workstation # [id number]
[2022-06-19] MEDS: SENNA W/DOCUSATE (SENOKOT S) TABLET PO SCH ×2 (09:51→20:04)
[2022-06-19] MEDS: SENNOSIDES 8.6 MG (SENOKOT) TAB PO SCH ×2 (09:51→20:04)
--- NOTE | 2022-06-19 10:46 | Tele-ICU Consult ---
History of Present Illness History of Present Illness Date Seen by Provider: Jun 19, 2022 Time Seen by Provider: 10:45 Date of Admission (Tele-ICU Physician , consultation as per request of PCP Service provided via interactive audio and video telecommunications E-CARE system to a patient admitted to ICU bed in [facility]. Available chart/ vitals / labs / Images reviewed H&P is from ER notes Patient's information available about PMH, Shx, Fhx allergy reviewed inEMR. ROS as per chart and RN report Now in ICU, hemodynamically stable Video assessment done using teleICU camera, rest of exam as per RN Discussed with RN. Consultants: Hospital course: (06/18) 72yr old male admitted from inpatient rehab where he was treated for Covid s/p lumbar surgery. 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 Discussed with RN to reach out if any questions or concerns A total of 25 minutes of critical care time was devoted to this patient today, required to treat and/or prevent further deterioration of critical care condition ( as above ) . I am remotely monitoring this patient from another state. I am unable to do the bedside exam, and history/physical and pertinent information is taken from other notes in the computer and bedside staff. . Allergies and Home Medications Allergies Coded Allergies: No Known Drug Allergies (Verified , 01/05/08) Home Medications Aspirin 81 Mg Tab.chew, 81 MG PO DAILY, (Reported) Atorvastatin Calcium 20 Mg Tablet, 20 MG PO DAILY, (Reported) Brimonidine Tartrate 0.2 % Btl, 1 DROP OD BID, (Reported) Diltiazem HCl 300 Mg Cap.er.24h, 300 MG PO DAILY, (Reported) Dorzolamide HCl/Timolol Maleat 22.3 Mg-6.8 Mg/Ml Drops, 1 DROPS OU BID, (Reported) Furosemide 40 Mg Tablet, 40 MG PO DAILY, (Reported) Gabapentin 300 Mg Capsule, 300 MG PO BID, (Reported) Glyburide 5 Mg Tablet, 10 MG PO BID WITH MEALS, (Reported) Insulin Detemir 100 Unit/Ml (3 Ml) Insuln.pen, 30 UNIT SQ DAILY PRN for HYPERGL YCEMIA, (Reported) Latanoprost/Pf 0.005 % Drops, 1 DROP OU HS, (Reported) Losartan Potassium 100 Mg Tablet, 100 MG PO DAILY, (Reported) Metformin HCl 1,000 Mg Tablet, 1,000 MG PO BID, (Reported) Pantoprazole Sodium 40 Mg Tablet.dr, 40 MG PO BID, (Reported) Rivaroxaban 20 Mg Tablet, 20 MG PO 1800 W/SUPPER, (Reported) Sitagliptin Phosphate 100 Mg Tablet, 100 MG PO DAILY, (Reported) Past Medical/Social/Family Hx Immunizations Up To Date Tetanus Booster (TDap): Less Than 5 Years Hepatitis A: No Hepatitis B: No TB Skin Test: None Current Status Primary Language: Mongolian Review of Systems Constitutional: see HPI Focused Exam Height, Weight, BMI Height: 5'10.00" Weight: 200lbs. 1.6oz. [id number]; 33.41 BMI Method:Estimated Exam Exam Patient acknowledged, consented, and participated in this virtual visit which was conducted using real time audio/video Vital Signs Date Time Temp Pulse Resp B/P (MAP) Pulse Ox O2 Delivery O2 Flow Rate FiO2 06/19/22 10:00 68 23 152/76 (101) 99 NIV Bilevel 40.00 06/19/22 09:11 Vapotherm 25.00 50.00 06/19/22 09:00 97 Vapotherm 25.00 50 06/19/22 09:00 73 32 171/79 (109) 96 NIV Bilevel 40.00 06/19/22 08:00 60 18 151/75 (100) 98 NIV Bilevel 40.00 06/19/22 07:51 36.0 06/19/22 07:30 60 16 98 40.00 06/19/22 07:00 60 06/19/22 07:00 60 12 150/71 (97) 98 NIV Bilevel 45.00 06/19/22 06:00 60 13 150/72 (98) 97 NIV Bilevel 45.00 06/19/22 05:00 60 17 155/89 (111) 95 NIV Bilevel 45.00 06/19/22 04:00 94 NIV Bilevel 45 06/19/22 04:00 60 16 161/85 (110) 91 NIV Bilevel 45.00 06/19/22 03:09 60 23 91 45.00 06/19/22 03:00 60 17 149/74 (99) 91 NIV Bilevel 45.00 06/19/22 02:00 60 14 152/82 (105) 96 NIV Bilevel 45.00 06/19/22 01:00 60 16 146/71 (96) 92 NIV Bilevel 45.00 06/19/22 01:00 60 06/19/22 00:28 93 45.00 06/19/22 00:17 15 93 NIV Bilevel 45.00 06/19/22 00:00 60 14 160/83 (108) 90 Vapotherm 40.00 80.00 06/18/22 23:59 92 NIV Bilevel 45 06/18/22 23:42 60 15 88 Vapotherm 40.00 80.00 06/18/22 23:00 60 7 146/77 (100) 90 Vapotherm 40.00 50.00 06/18/22 22:45 60 8 144/70 (94) 91 Vapotherm 40.00 50.00 06/18/22 22:39 94 Vapotherm 40.00 50 06/18/22 22:30 60 9 157/73 (101) 92 Vapotherm 40.00 50.00 06/18/22 22:19 35.7 60 25 161/77 (105) 95 Vapotherm 40.00 50.00 06/18/22 22:19 60 I & O 06/19/22 07:00 Intake Total 230 ml Output Total 200 ml Balance 30 ml Height & Weight Height: 5'10.00" Weight: 200lbs. 1.6oz. 90.453104vu; 33.41 BMI Method:Estimated General Appearance: No Apparent Distress Results Lab Laboratory Tests 06/18/22 23:35 06/19/22 06:30 Assessment/Plan Assessment/Plan 1 MELBA DOUGLAS MD Jun 19, 2022 10:46
[2022-06-19] MEDS ORDERED: RT-ALBUTEROL HFA 8.5 GM INHALER IH PRN (14:00)
--- NOTE | 2022-06-19 14:16 | Progress Note ---
LETTY ALEMAN 06/19/22 1416: Progress Note CC: Respiratory Failure HPI:Manuel Cochran, goes by Татьяна, is a 72yo M who was admitted to the [facility] 4th floor 06/13/22 from [facility] with a chief complaint of malai se/myalgia, sore throat, and back pain. Татьяна was initially intended to be brought to the inpatient rehab unit for S/P lumbar surgery done in [place], but prior to discharge he tested positive for Covid. He was then brought into room 433 to be quarantined, and continually monitored. On talking with patient he was fatigued and oriented x3 but very frustrated, he hasn't had much education and in conversation is mildly obtuse. Multple times in conversation patient appeared to almost fall asleep and start snoring. He did not appear to be toxic, and denied any c/o SOB, CP, fevers, chills, or naseua. He remained quarantined where he had very limited mobility due to the severity of his back pain that he often rated as an 8/10, this caused him to have several instances where he wet the bed adding to his frustration, he initially had a fever despite denying any, which went down to NL on 06/15/22, his lungs continued to sound congested and for pneumonia PPx he was given Abx. Anemia also was a concern where Hgb was around 7.6, so Iron and B12 were administered. His mood gradually improved but he had frustrations with his foods temperature and would call his girlfriend Opal to help calm him down. It was planned to move him to the IRF of [facility], where he would remain in quarentine until he met his 10 day requirement, while still working with OT/PT to help alleviate pain and improve debility. After a couple days in rehab татьяна continually required further assistance in breathing, he became more complicated and fell into respiratory distress. He was then moved to ICU room 2, and placed on more intensive respiratory treatment where his O2 stats normalized. Татьяна remains uncomprehensive of the severity of his situation and says he feels better and wants to go home. PMH: Covid-PNA Coronary Artery Disease, Heart Attack, High Cholesterol, Hypertension Sexually Transmitted Disease: No HIV/AIDS: No Prostate Problems Gastroesophageal Reflux Diabetes, Non-Insulin dep Loss of Vision: diabetic retinopathy Depression Blood Disorders: No Adverse Reaction/Blood Tranf: No PSH: coronary stent, orthopedic(back surgery) All: No Known Drug Allergies (Verified , 01/05/08) MEDs: Aspirin 81 Mg Tab.chew, 81 MG PO DAILY, (Reported) Atorvastatin Calcium 20 Mg Tablet, 20 MG PO DAILY, (Reported) Brimonidine Tartrate 0.2 % Btl, 1 DROP OD BID, (Reported) Diltiazem HCl 300 Mg Cap.er.24h, 300 MG PO DAILY, (Reported) Dorzolamide HCl/Timolol Maleat 22.3 Mg-6.8 Mg/Ml Drops, 1 DROPS OU BID, (Reported) Furosemide 40 Mg Tablet, 40 MG PO DAILY, (Reported) Gabapentin 300 Mg Capsule, 300 MG PO BID, (Reported) Glyburide 5 Mg Tablet, 10 MG PO BID WITH MEALS, (Reported) Insulin Detemir 100 Unit/Ml (3 Ml) Insuln.pen, 30 UNIT SQ DAILY PRN for HYPERGLYCEMIA, (Reported) Latanoprost/Pf 0.005 % Drops, 1 DROP OU HS, (Reported) Losartan Potassium 100 Mg Tablet, 100 MG PO DAILY, (Reported) Metformin HCl 1,000 Mg Tablet, 1,000 MG PO BID, (Reported) Pantoprazole Sodium 40 Mg Tablet.dr, 40 MG PO BID, (Reported) Rivaroxaban 20 Mg Tablet, 20 MG PO 1800 W/SUPPER, (Reported) Sitagliptin Phosphate 100 Mg Tablet, 100 MG PO DAILY, (Reported) SH: Not , no kids, has a girlfriend named Opal, and is on disability. 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 very little education. FH:Cardiovascular disease FATHER BROTHER BROTHER Diabetes mellitus MOTHER ROS: Constitutional: see HPI, malaise, weakness EENTM: reports pain substernally up towards throat Respiratory: severe SOB without ventillative assistance, cough Cardiovascular: no symptoms reported Gastrointestinal: no symptoms reported Genitourinary: no symptoms reported Musculoskeletal: back pain, muscle pain Skin: no symptoms reported Psychiatric/Neurological: No Symptoms Reported Exams: V/S: T(36.0) HR(60) RR(17) BP(165/67) SpO2(94, high flow nasal cannula(4.0)) General Appearance: No Apparent Distress, WD/WN, Chronically ill, Obese HEENT: PERRL/EOMI, Normal ENT Inspection, Pharynx Normal Neck: Full Range of Motion, Normal Inspection, Non Tender, Supple Respiratory: Chest Non Tender, Lungs congested, Coarse Breath Sounds, No Accessory Muscle Use, Respiratory Distress Cardiovascular: Regular Rate, Rhythm, No Edema, No Gallop, No JVD, No Murmur, Normal Peripheral Pulses Gastrointestinal: Normal Bowel Sounds, No Organomegaly, No Pulsatile Mass, Non Tender, Soft Back: Normal Inspection, CVA Tenderness (L), CVA Tenderness (R), Decreased Range of Motion, Muscle Spasm, Vertebral Tenderness Extremity: Normal Capillary Refill, Normal Inspection, Normal Range of Motion (limited ), Non Tender, No Calf Tenderness, No Pedal Edema Neurologic/Psychiatric: Alert, Oriented x3, 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 Norm as Tested, Abnormal Gait, Depressed Affect, Motor Weakness Skin: Normal Color, Warm/Dry Lymphatic: No Adenopathy Labs: Hgb(8.5) Hct(27) Glucose(ehm=664, kbhc=276) A: Slow recovery from lumbar spine surgery COVID infection- isolation until 06/22/22 s/p bacterial PNA Low vision from DM retinopathy HTN post op Anemia DARRICK on CKD Stage III HLP Pacemaker PAF OAC restart 06/17/[address] Fall to prevent spinal hematoma Post op constipation DM w/ hyperglycemia Hypoxia Hypocapnic Hyponatremia P: Monitor sugars Monitor reat BM regimen PT OT Isolation until Saturday Restart Xarelto 06/17/22 Agressive ventilation therapy SHERINE ENNIS DO 06/20/22 0445: Supervisory-Addendum Brief Verification & Attestation Participated in pt care: history, MDM, physical Personally performed: exam, history, MDM, supervision of care Care discussed with: Medical Student Procedures: n/a Results interpretation: Verified all documentation Verification and Attestation of Medical Student E/M Service A medical student performed and documented this service in my presence. I reviewed and verified all information documented by the medical student and made modifications to such information, when appropriate. I personally performed the physical exam and medical decision making. Sherine Ennis Jun 20, 2022,04:45 LETTY ALEMAN Jun 19, 2022 14:16 SHERINE ENNIS DO Jun 20, 2022 04:45
[2022-06-19] MEDS: inSUlin (REGULAR) HUMAN 1 UNIT/0.01 ML (CHARGE PER UNIT) SC PRN ×2 (16:26→20:31)
[2022-06-19] MEDS: LATANOPROST 0.005% (XALATAN) OPHTH SOLN 2.5 ML OU SCH (20:32)
--- NOTE | 2022-06-19 20:32 | Cardiology Progress Note ---
Progress Note-Cardiology Events since last exam Date Seen by Provider: Jun 19, 2022 Time Seen by Provider: 20:30 Events since last exam I am following him due to his history of coronary artery disease and atrial fibrillation. He was on the inpatient rehabilitation unit and on 06/18, he became hypoxic and was placed on BiPAP and transferred to the ICU. Today when I saw him he was off BiPAP. He was sitting in his bed. He denies chest pain, dyspnea at rest, palpitations, syncope, or ankle edema. However, due to his confusion, his answers may not be reliable. Certain portions of this document may have been dictated utilizing voice recognition technology. Inherent to this technology, typographical and grammatical errors may exist. As much as I am diligent to identify and correct these mistakes, some errors may remain in the document. Vitals Last set of Vitals Signs Vital Signs 06/19/22 06/19/22 06/19/22 06/19/22 16:00 18:00 19:42 19:54 Temp 36.7 Pulse 75 Resp 20 B/P (MAP) 145/104 (118) Pulse Ox 94 O2 Delivery High Flow N/C O2 Flow Rate 4.00 FiO2 55 Labs Labs Laboratory Tests 06/18/22 23:35 06/19/22 06:30 Exam Vital Signs Vital Signs Date Time Temp Pulse Resp B/P (MAP) Pulse Ox O2 Delivery O2 Flow Rate FiO2 06/19/22 19:54 94 High Flow N/C 4.00 06/19/22 19:42 36.7 06/19/22 18:00 75 20 145/104 (118) 06/19/22 16:00 55 Physical Exam Due to the patient's COVID status, I spoke with the patient from the doorway. He is confused. General: The patient is breathing spontaneously. HENT: Normocephalic. Atraumatic. Skin: There is no pallor. Neurologic: Oriented to person only. Cranial nerves III through XII grossly intact. Moving all 4 extremities. Psychiatric: Cooperative but confused. Labs Laboratory Tests Test 06/18/22 23:35 06/19/22 06:30 06/19/22 06:34 06/19/22 10:39 Range/Units White Blood Count 10.3 11.0 4.3-11.0 10^3/uL Red Blood Count 2.69 L 2.97 L 4.30-5.52 10^6/uL Hemoglobin 7.6 L 8.5 L 13.3-17.7 g/dL Hematocrit 24 L 27 L 40-54 % Mean Corpuscular Volume 90 91 80-99 fL Mean Corpuscular Hemoglobin 28 29 25-34 pg Mean Corpuscular Hemoglobin Concent 31 L 32 32-36 g/dL Red Cell Distribution Width 14.3 14.1 10.0-14.5 % Platelet Count 311 369 130-400 10^3/uL Mean Platelet Volume 11.5 11.3 9.0-12.2 fL Immature Granulocyte % (Auto) 1 1 % Neutrophils (%) (Auto) 77 H 92 H 42-75 % Lymphocytes (%) (Auto) 10 L 5 L 12-44 % Monocytes (%) (Auto) 11 2 0-12 % Eosinophils (%) (Auto) 1 0 0-10 % Basophils (%) (Auto) 0 0 0-10 % Neutrophils # (Auto) 7.9 H 10.1 H 1.8-7.8 10^3/uL Lymphocytes # (Auto) 1.0 0.5 L 1.0-4.0 10^3/uL Monocytes # (Auto) 1.1 H 0.2 0.0-1.0 10^3/uL Eosinophils # (Auto) 0.1 0.0 0.0-0.3 10^3/uL Basophils # (Auto) 0.0 0.0 0.0-0.1 10^3/uL Immature Granulocyte # (Auto) 0.1 0.2 H 0.0-0.1 10^3/uL Sodium Level 135 134 L 135-145 MMOL/L Potassium Level 4.7 5.0 3.6-5.0 MMOL/L Chloride Level 109 H 109 H 98-107 MMOL/L Carbon Dioxide Level 18 L 17 L 21-32 MMOL/L Anion Gap 8 8 5-14 MMOL/L Blood Urea Nitrogen 51 H 50 H 7-18 MG/DL Creatinine 1.84 H 1.79 H 0.60-1.30 MG/DL Estimat Glomerular Filtration Rate 39 40 BUN/Creatinine Ratio 28 28 Glucose Level 204 H 214 H 70-105 MG/DL Calcium Level 8.1 L 8.3 L 8.5-10.1 MG/DL Corrected Calcium 9.1 9.2 8.5-10.1 MG/DL Total Bilirubin 0.3 0.3 0.1-1.0 MG/DL Aspartate Amino Transf (AST/SGOT) 17 17 5-34 U/L Alanine Aminotransferase (ALT/SGPT) 15 16 0-55 U/L Alkaline Phosphatase 64 71 40-136 U/L B-Type Natriuretic Peptide 720.6 H <100.0 PG/ML Total Protein 6.0 L 6.7 6.4-8.2 GM/DL Albumin 2.7 L 2.9 L 3.2-4.5 GM/DL Phosphorus Level 3.8 2.3-4.7 MG/DL Magnesium Level 1.6 1.6-2.4 MG/DL Glucometer 197 H 321 H 70-110 MG/DL Test 06/19/22 16:11 06/19/22 19:40 Range/Units Glucometer 424 *H 418 *H 70-110 MG/DL Diagnosis/Problems Diagnosis/Problems (1) Paroxysmal atrial fibrillation Assessment & Plan: He remains in atrial fibrillation on telemetry. He had been on a lower dose of Xarelto because he was on Paxlovid for COVID infection. He has completed the treatment course of Paxlovid has been completed. I will change the Xarelto back over to therapeutic dosing but at a reduced dose due to GFR less than 50. He is on diltiazem for rate control. He has a permanent pacemaker and as such, we do not have to worry about bradycardia. (2) Coronary artery disease without angina pectoris Assessment & Plan: He has not been complaining of any angina. He was on triple anticoagulant/antiplatelet therapy at the outside facility. I previously changed him over to clopidogrel with rivaroxaban. He is back on statin medication. Clopidogrel was held because he was taking Paxlovid. I will restart the clopidogrel at this time. Since he is taking rivaroxaban for atrial fibrillation, I will not give him a loading dose of clopidogrel. (3) Primary hypertension Assessment & Plan: He has been normotensive much of the time on the present combination of antihypertensive medication. (4) Mixed hyperlipidemia Assessment & Plan: Continue atorvastatin. (5) Cardiac pacemaker in situ Assessment & Plan: Presumably he follows with his outside linux engineer for pacemaker checks. 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 (6) Stage 3b chronic kidney disease Assessment & Plan: His renal function has been reasonably stable during this admission although only checked intermittently while he was on inpatient rehab. (7) Type 2 diabetes mellitus with complication Assessment & Plan: This is being managed by the hospitalist. MANNIE VIVAR JR, MD Jun 19, 2022 20:32
--- NOTE | 2022-06-19 20:40 | History & Physical ---
History of Present Illness HPI/Chief Complaint CC: Respiratory Failure HPI:Manuel Cochran, goes by Татьяна, is a 72yo M who was admitted to the [facility] 4th floor 06/13/22 from [facility] with a chief complaint of malaise/myalgia, sore throat, and back pain. Татьяна was initially intended to be brought to the inpatient rehab unit for S/P lumbar surgery done in [place], but prior to discharge he tested positive for Covid. He was then brought into room 433 to be quarantined, and continually monitored. On talking with patient he was fatigued and oriented x3 but very frustrated, he hasn't had much education and in conversation is mildly obtuse. Multple times in conversation patient appeared to almost fall asleep and start snoring. He did not appear to be toxic, and denied any c/o SOB, CP, fevers, chills, or naseua. He remained quarantined where he had very limited mobility due to the severity of his back pain that he often rated as an 8/10, this caused him to have several instances where he wet the bed adding to his frustration, he initially had a fever despite denying any, which went down to NL on 06/15/22, his lungs continued to sound congested and for pneumonia PPx he was given Abx. Anemia also was a concern where Hgb was around 7.6, so Iron and B12 were administered. His mood gradually improved but he had frustrations with his foods temperature and would call his girlfriend Opal to help calm him down. It was planned to move him to the IR[facility] of [facility], where he would remain in quarentine until he met his 10 day requirement, while still working with OT/PT to help alleviate pain and improve debility. After a couple days in rehab татьяна continually required further assistance in breathing, he became more complicated and fell into respiratory distress. He was then moved to ICU room 2, and placed on more intensive respiratory treatment where his O2 stats normalized. Татьяна remains uncomprehensive of the severity of his situation and says he feels better and wants to go home. PMH: Covid-PNA Coronary Artery Disease, Heart Attack, High Cholesterol, Hypertension Sexually Transmitted Disease: No HIV/AIDS: No Prostate Problems Gastroesophageal Reflux Diabetes, Non-Insulin dep Loss of Vision: diabetic retinopathy Depression Blood Disorders: No Adverse Reaction/Blood Tranf: No PSH: coronary stent, orthopedic(back surgery) All: No Known Drug Allergies (Verified , 01/05/08) MEDs: Aspirin 81 Mg Tab.chew, 81 MG PO DAILY, (Reported) Atorvastatin Calcium 20 Mg Tablet, 20 MG PO DAILY, (Reported) Brimonidine Tartrate 0.2 % Btl, 1 DROP OD BID, (Reported) Diltiazem HCl 300 Mg Cap.er.24h, 300 MG PO DAILY, (Reported) Dorzolamide HCl/Timolol Maleat 22.3 Mg-6.8 Mg/Ml Drops, 1 DROPS OU BID, (Reported) Furosemide 40 Mg Tablet, 40 MG PO DAILY, (Reported) Gabapentin 300 Mg Capsule, 300 MG PO BID, (Reported) Glyburide 5 Mg Tablet, 10 MG PO BID WITH MEALS, (Reported) Insulin Detemir 100 Unit/Ml (3 Ml) Insuln.pen, 30 UNIT SQ DAILY PRN for HYPERGLYCEMIA, (Reported) Latanoprost/Pf 0.005 % Drops, 1 DROP OU HS, (Reported) Losartan Potassium 100 Mg Tablet, 100 MG PO DAILY, (Reported) Metformin HCl 1,000 Mg Tablet, 1,000 MG PO BID, (Reported) Pantoprazole Sodium 40 Mg Tablet.dr, 40 MG PO BID, (Reported) Rivaroxaban 20 Mg Tablet, 20 MG PO 1800 W/SUPPER, (Reported) Sitagliptin Phosphate 100 Mg Tablet, 100 MG PO DAILY, (Reported) SH: Not , no kids, has a girlfriend named Opal, and is on disability. 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 very little education. FH:Cardiovascular disease FATHER BROTHER BROTHER Diabetes mellitus MOTHER ROS: Constitutional: see HPI, malaise, weakness EENTM: reports pain substernally up towards throat Respiratory: severe SOB without ventillative assistance, cough Cardiovascular: no symptoms reported Gastrointestinal: no symptoms reported Genitourinary: no symptoms reported Musculoskeletal: back pain, muscle pain Skin: no symptoms reported Psychiatric/Neurological: No Symptoms Reported Exams: V/S: T(36.0) HR(60) RR(17) BP(165/67) SpO2(94, high flow nasal cannula(4.0)) General Appearance: No Apparent Distress, WD/WN, Chronically ill, Obese HEENT: PERRL/EOMI, Normal ENT Inspection, Pharynx Normal Neck: Full Range of Motion, Normal Inspection, Non Tender, Supple Respiratory: Chest Non Tender, Lungs congested, Coarse Breath Sounds, No Accessory Muscle Use, Respiratory Distress Cardiovascular: Regular Rate, Rhythm, No Edema, No Gallop, No JVD, No Murmur, Normal Peripheral Pulses Gastrointestinal: Normal Bowel Sounds, No Organomegaly, No Pulsatile Mass, Non Tender, Soft Back: Normal Inspection, CVA Tenderness (L), CVA Tenderness (R), Decreased Range of Motion, Muscle Spasm, Vertebral Tenderness Extremity: Normal Capillary Refill, Normal Inspection, Normal Range of Motion (limited ), Non Tender, No Calf Tenderness, No Pedal Edema Neurologic/Psychiatric: Alert, Oriented x3, tile burner II-XII Norm as Tested, Abnormal Gait, Depressed Affect, Motor Weakness Skin: Normal Color, Warm/Dry Lymphatic: No Adenopathy Labs: Hgb(8.5) Hct(27) Glucose(tjg=793, dzmu=963) A: Slow recovery from lumbar spine surgery COVID infection- isolation until 06/22/22 s/p bacterial PNA Low vision from DM retinopathy HTN post op Anemia DARRICK on CKD Stage III HLP Pacemaker PAF OAC restart 06/17/[address] Fall to prevent spinal hematoma Post op constipation DM w/ hyperglycemia Hypoxia Hypocapnic Hyponatremia P: Monitor sugars Monitor reat BM regimen PT OT Isolation until Saturday Restart Xarelto 06/17/22 Agressive ventilation therapy LOVELETTY Jun 19, 2022 14:16 Source: patient Exam Limitations: clinical condition Date Seen 06/19/22 Time Seen by a Provider: 10:00 Attending Physician Dav Cifuentes DO PCP Admitting Physician: Sherine Ennis DO Attending Physician: Sherine Ennis DO Referring Physician Date of Admission Jun 18, 2022 at 20:37 Home Medications & Allergies Home Medications Reviewed patient Home Medication Reconciliation performed by pharmacy medication reconciliations auto body technician and/or nursing. Patients Allergies have been reviewed. Allergies Allergies Coded Allergies No Known Drug Allergies (Verified01/05/08) Past Butoapx-Zhdhsu-Zuagld Hx Past Med/Social Hx: Reviewed Nursing Past Med/Soc Hx, Reviewed and Corrections made Patient Social History Marrital Status: cohabiting Employed/Student: retired Alcohol Use: Denies Use Smoking Status: Former Smoker Type Used: Cigarettes Recent Hopitalizations: Yes (5 months ago at [facility]) Immunizations Up To Date Tetanus Booster (TDap): Less than 5yrs Pediatric: No Date of Influenza Vaccine: Apr 07, 2022 Seasonal Allergies Seasonal Allergies: No Past Medical History Surgeries: Orthopedic Respiratory: Pneumonia Currently Using CPAP: No Currently Using BIPAP: No Cardiac: Atrial Fibrillation, High Cholesterol, Hypertension pacemaker Neurological: Developmental Disorder Reproductive: No Sexually Transmitted Disease: No HIV/AIDS: No Genitourinary: Prostate Problems Gastrointestinal: Gastroesophageal Reflux Endocrine: Diabetes, Insulin dep Loss of Vision: Denies Psychosocial: Depression History of Blood Disorders: No Adverse Reaction to Blood Dill: No Family History Cardiovascular disease 19 FATHER G8 BROTHER G8 BROTHER Diabetes mellitus 19 MOTHER Review of Systems Constitutional: see HPI, malaise, weakness EENTM: no symptoms reported Respiratory: cough, dyspnea on exertion Cardiovascular: no symptoms reported Gastrointestinal: no symptoms reported Genitourinary: no symptoms reported Musculoskeletal: no symptoms reported Skin: no symptoms reported Psychiatric/Neurological: No Symptoms Reported All Other Systems Reviewed Negative Unless Noted: Yes Physical Exam Physical Exam Vital Signs Vital Signs - First Documented 06/18/22 06/18/22 22:19 22:39 Temp 35.7 Pulse 60 Resp 25 B/P (MAP) 161/77 (105) Pulse Ox 95 O2 Delivery Vapotherm O2 Flow Rate 40.00 50.00 FiO2 50 Capillary Refill : Height, Weight, BMI Height: 5'10.00" Weight: 200lbs. 1.6oz. [id number]; 33.41 BMI Method:Estimated General Appearance: Anxious, Chronically ill, Mild Distress HEENT: PERRL/EOMI, Normal ENT Inspection, Pharynx Normal Neck: Full Range of Motion, Normal Inspection, Non Tender, Supple, Carotid Bruit Respiratory: Accessory Muscle Use, Crackles, Decreased Breath Sounds, Wheezing Cardiovascular: Regular Rate, Rhythm, No Edema, No Gallop, No JVD, No Murmur, Normal Peripheral Pulses Neurologic/Psychiatric: Alert, Oriented x3, No Motor/Sensory Deficits, Normal Mood/Affect Results Results/Procedures Labs Laboratory Tests 06/18/22 23:35 06/19/22 06:30 Patient resulted labs reviewed. Assessment/Plan Admission Diagnosis Assessment: Acute respiratory failure requiring BiPAP and Vapotherm COVID-pneumonia Bacterial pneumonia Chronic kidney disease from diabetic nephropathy Low vision due to diabetic retinopathy Anemia requiring IV iron infusions Intellectual delay lifelong Atrial fibrillation Peripheral vascular disease Recent lumbar spine surgery requiring inpatient rehab Plan: ICU care Vapotherm BiPAP Anticoagulation decreased dose due to Paxlovid Admission Status: Inpatient Order (span 2 midnights) Reason for Inpatient Admission: Respiratory failure SHERINE ENNIS DO Jun 19, 2022 20:40
[2022-06-19] MEDS: RT-ALBUTEROL HFA 8.5 GM INHALER IH SCH (21:22)
[2022-06-19 21:25] VITALS: BP 145/61
[2022-06-19] MEDS: RIVAROXABAN 15 MG TABLET (XARELTO) PO SCH (21:47)
[2022-06-20] MEDS: RT-ALBUTEROL HFA 8.5 GM INHALER IH SCH ×6 (03:27→22:25)
[2022-06-20 03:52] LABS: ABG BASE EXCESS -6.6 MMOL/L (-2.5-2.5); ABG OXYGEN SATURATION 63 % (94-100); ABG PCO2 36 MMHG (35-45); ABG TCO2 19.6 MMOL/L (21.0-31.0)
[2022-06-20 03:54] LABS: ABG PH 7.32 (7.37-7.43); ABG PO2 39 MMHG (79-93); ALLENS TEST YES-POS
[2022-06-20 03:55] LABS: INSPIRED O2 4L; PATIENT TEMP 36.5; VENTILATOR NO
[2022-06-20] MEDS: CATHETER FLUSH 10 ML SYR IVP SCH ×3 (05:22→21:23)
[2022-06-20 05:51] LABS: BASOPHILS % (AUTO) 0 % (0-10); EOSINOPHILS % (AUTO) 0 % (0-10); HEMATOCRIT 25 % (40-54); HEMOGLOBIN 8.2 g/dL (13.3-17.7); LYMPHOCYTES # (AUTO) 0.9 10^3/uL (1.0-4.0); LYMPHOCYTES % (AUTO) 7 % (12-44); MEAN CORPUSCULAR HEMOGLOBIN 29 pg (25-34); MEAN CORPUSCULAR HGB CONC 33 g/dL (32-36); MEAN CORPUSCULAR VOLUME 88 fL (80-99); MEAN PLATELET VOLUME 11.5 fL (9.0-12.2); MONOCYTES # (AUTO) 1.1 10^3/uL (0.0-1.0); MONOCYTES % (AUTO) 9 % (0-12); NEUTROPHILS # (AUTO) 10.9 10^3/uL (1.8-7.8); NEUTROPHILS % (AUTO) 82 % (42-75); PLATELET COUNT 451 10^3/uL (130-400); WHITE BLOOD COUNT 13.2 10^3/uL (4.3-11.0)
[2022-06-20 06:23] LABS: ALBUMIN 2.8 GM/DL (3.2-4.5); BILIRUBIN,TOTAL 0.3 MG/DL (0.1-1.0); CALCIUM 8.3 MG/DL (8.5-10.1); CREATININE SERUM 1.99 MG/DL (0.60-1.30); MAGNESIUM 1.7 MG/DL (1.6-2.4); PHOSPHORUS 3.6 MG/DL (2.3-4.7); POTASSIUM 5.2 MMOL/L (3.6-5.0); TOTAL PROTEIN 6.4 GM/DL (6.4-8.2)
[2022-06-20] MEDS: POTASSIUM CL 10MEQ/50ML IVPB 50 ML IV SCH (06:26)
[2022-06-20] MEDS: KCL 20 MEQ TAB (K-DUR) PO SCH (06:26)
[2022-06-20] MEDS: MAGNESIUM 1 GM/100 ML IVPB 100 ML IV SCH (06:29)
[2022-06-20] MEDS: inSUlin ASPART (NovoLOG) 1 UNIT/0.01 ML (CHARGE PER UNIT) SC SCH ×4 (06:34→21:20)
[2022-06-20] MEDS: DOXYCYCLINE 100 MG (VIBRAMYCIN) TABLET PO SCH ×2 (06:34→17:23)
[2022-06-20] MEDS: PANTOPRAZOLE 40 MG (PROTONIX) TAB PO SCH ×2 (06:34→17:23)
[2022-06-20] MEDS: CYANOCOBALAMIN 1,000 MCG (VITAMIN B-12) TABLET PO SCH (06:34)
[2022-06-20] MEDS ORDERED: MAGNESIUM 1 GM/100 ML IVPB 100 ML IV SCH (07:30)
[2022-06-20] MEDS: amLODIPine 5 MG (NORVASC) TAB PO SCH (08:00)
[2022-06-20] MEDS: GABAPENTIN 300 MG (NEURONTIN) CAP PO SCH ×2 (08:00→21:17)
[2022-06-20] MEDS: SENNA W/DOCUSATE (SENOKOT S) TABLET PO SCH ×2 (08:00→21:18)
[2022-06-20] MEDS: CLOPIDOGREL 75 MG (PLAVIX) TABLET PO SCH (08:00)
[2022-06-20] MEDS: BRIMONIDINE 0.2% (ALPHAGAN) OPHTH SOLN 5 ML BTL OD SCH ×2 (08:00→21:23)
[2022-06-20] MEDS: DORZOLAMIDE/TIMOLOL (COSOPT) 2-0.68% 10 ML BTL OU SCH ×2 (08:01→21:23)
[2022-06-20] MEDS ORDERED: REMDESIVIR INJ 100 MG in NS (IVPB) 230 ML IV SCH (09:00)
--- NOTE | 2022-06-20 09:19 | Diagnostic Imaging Report ---
INDICATION: Dyspnea. Comparison is made with prior examination of 06/19/2022. FINDINGS: There is cardiomegaly. Some venous congestion. There is no pleural effusion or pneumothorax. Mediastinum is unremarkable. Pacemaker overlies left hemithorax. IMPRESSION: Cardiomegaly and some central pulmonary venous congestion. Dictated by: Dictated on workstation # [id number]
--- NOTE | 2022-06-20 09:38 | Progress Note ---
Subjective Date Seen by a Provider: Jun 20, 2022 Time Seen by a Provider: 09:30 Subjective/Events-last exam Patient dramatically improved On 1 L of oxygen Overall feels a lot better Minimal cough No shortness of breath Voiding well Eating well Review of Systems General: Fatigue, Malaise Pulmonary: Dyspnea Objective Exam Last Set of Vital Signs Vital Signs Date Time Temp Pulse Resp B/P (MAP) Pulse Ox O2 Delivery O2 Flow Rate FiO2 06/20/22 07:00 61 06/20/22 06:59 High Flow N/C 1.00 06/20/22 06:54 100 06/20/22 06:00 11 151/66 (94) 06/20/22 03:33 36.5 06/19/22 16:00 55 Capillary Refill : I&O Intake and Output 06/20/22 00:00 Intake Total 1930 ml Output Total 200 ml Balance 1730 ml Intake Oral 1930 ml Output Urine Total 200 ml # Voids 1 # Urine Diapers 5 General: Alert, Oriented X3, Cooperative, No Acute Distress Lungs: Clear to Auscultation, Normal Air Movement Heart: Regular Rate, Normal S1, Normal S2, No Murmurs Psych/Mental Status: Mental Status NL, Mood NL Results Lab Laboratory Tests 06/19/22 10:39: Glucometer 321H 06/19/22 16:11: Glucometer 424*H 06/19/22 19:40: Glucometer 418*H 06/20/22 03:24: Blood Gas Puncture Site R RAD, Blood Gas Patient Temperature 36.5, Arterial Blood pH 7.32*L, Arterial Blood Partial Pressure CO2 36, Arterial Blood Partial Pressure O2 39*L, Arterial Blood HCO3 18L, Arterial Blood Total CO2 19.6L, Arterial Blood Oxygen Saturation 63L, Arterial Blood Base Excess -6.6L, Carlo Test YES-POS, Blood Gas Ventilator Setting NO, Blood Gas Inspired Oxygen 4L 06/20/22 04:20: White Blood Count 13.2H, Red Blood Count 2.83L, Hemoglobin 8.2L, Hematocrit 25L, Mean Corpuscular Volume 88, Mean Corpuscular Hemoglobin 29, Mean Corpuscular Hemoglobin Concent 33, Red Cell Distribution Width 14.2, Platelet Count 451H, Mean Platelet Volume 11.5, Immature Granulocyte % (Auto) 2, Neutrophils (%) (Auto) 82H, Lymphocytes (%) (Auto) 7L, Monocytes (%) (Auto) 9, Eosinophils (%) (Auto) 0, Basophils (%) (Auto) 0, Neutrophils # (Auto) 10.9H, Lymphocytes # (Auto) 0.9L, Monocytes # (Auto) 1.1H, Eosinophils # (Auto) 0.0, Basophils # (Auto) 0.0, Immature Granulocyte # (Auto) 0.3H, Percent Immature Platelet Fraction 3.1, Sodium Level 134L, Potassium Level 5.2H, Chloride Level 109H, Carbon Dioxide Level 14L, Anion Gap 11, Blood Urea Nitrogen 60H, Creatinine 1.99H, Estimat Glomerular Filtration Rate 35, BUN/Creatinine Ratio 30, Glucose Level 191H, Calcium Level 8.3L, Corrected Calcium 9.3, Phosphorus Level 3.6, Magnesium Level 1.7, Total Bilirubin 0.3, Aspartate Amino Transf (AST/SGOT) 16, Alanine Aminotransferase (ALT/SGPT) 15, Alkaline Phosphatase 68, Total Protein 6.4, Albumin 2.8L Microbiology 06/18/22 MRSA Screen - Final, Complete MRSA not isolated Assessment/Plan Assessment/Plan Assess & Plan/Chief Complaint Assessment: Acute respiratory failure requiring BiPAP and Vapotherm now on 1 L and moving to fourth floor COVID-pneumonia Bacterial pneumonia Chronic kidney disease from diabetic nephropathy Low vision due to diabetic retinopathy Anemia requiring IV iron infusions Intellectual delay lifelong Atrial fibrillation Peripheral vascular disease Recent lumbar spine surgery requiring inpatient rehab Plan: ICU care completed moving to fourth Vapotherm discontinued BiPAP no longer necessary Anticoagulation decreased dose due to NATHALIA Tucker DO Jun 20, 2022 09:38
[2022-06-20] MEDS: SODIUM BICARBONATE 650 MG TABLET PO SCH ×2 (11:04→21:18)
[2022-06-20] MEDS: SENNOSIDES 8.6 MG (SENOKOT) TAB PO SCH ×2 (11:08→21:18)
--- NOTE | 2022-06-20 11:14 | Occupational Therapy Eval ---
OT Evaluation-General/PLF Medical Diagnosis Admission Date Jun 18, 2022 at 20:37 Medical Diagnosis: Respiratory failure Onset Date: Jun 13, 2022 Therapy Diagnosis Therapy Diagnosis: reduced adl status Height/Weight Height (Feet): 5 Height (Inches): 10.00 Weight (Pounds): 200 Weight (Ounces): 1.6 Precautions Precautions/Isolations: Airborne Isolation, Contact Isolation, Droplet [place] tion, Fall Prevention, Standard Precautions Comments spinal precautions, LSO brace on when up Referral Referral Reason: Evaluation/Treatment Medical History Pertinent Medical History: CAD, CVA, DM, GERD, Heart Failure, HTN Current History Pt presented to hospital with COVID and s/p L5-Pelvis PSIF. Pt initially intended to admit to ARU s/p lumbar surgery, however prior to d/c he tested positive for Covid. He was transferred to medical floor before coming down to ARU. Pt was only on ARU for 1 day before experiencing respiratory failure and needing a transfer to ICU. He is a poor historian but more alert than when seen earlier in the week. Per patient, he lives with his girlfriend Sacha (who is also in "bad shape"). He states that he was indep with adls and that he and sacha share IADL responsibilities. Pt reports using both a walker and a cane. Pt is legally blind but able to see shadows and figures. Does better with good lighting. Limited schooling, possible Intellectual disability. Reviewed History: Yes Social History Home: Single Level Current Living Status: Significant Other ADL-Prior Level of Function SCALE: Activities may be completed with or without assistive devices. 8-Wdttavrnhp-kjfnnfq completes the activity by him/herself with no assistance from a helper. 5-Set-up or Clean-up Assistance-helper sets up or cleans up; patient completes activity. [place] assists only prior to or following the activity. 4-Supervision or Touching Assistance-helper provides verbal cues and/or touching/steadying and/or contact guard assistance as patient completes activity. Assistance may be provided throughout the activity or intermittently. 3-Partial/Moderate Assistance-helper does LESS THAN HALF the effort. Marathon lifts, holds or supports trunk or limbs, but provides less than half the effort. 2-Substantial/Maximal Assistance-helper does MORE THAN HALF the effort. [place] lifts or holds trunk or limbs and provides more than half the effort. 5-Wrmacvaex-lnuffn does ALL the effort. Patient does none of the effort to complete the activity. Or, the assistance of 2 or more helpers is required for the patient to complete the activity. If activity was not attempted, code reason: 7-Patient Refused. 9-Not Applicable-not attempted and the patient did not perform the activity before the current illness, exacerbation or injury. 10-Not Attempted due to Environmental Limitations-(lack of equipment, weather restraints, etc.). 88-Not Attempted due to Medical Conditions or Safety Concerns. Self Care: Unknown Functional Cognition: Unknown DME/Equipment: Bath Chair, Shower OT Current Status Subjective Pt reports feeling much better and questioning when he go home. Appearance Pt left supine in bed, RN in room at OT departure. Mental Status/Objective Patient Orientation: Person, Place Attachments: IV, Oxygen (1L), Telemetry Current Glasses/Contacts: Yes Hearing Aids: No Dentures/Partials: No Hand Dominance: Left Upper Extremity ROM Bilateral shoulders ~120 degrees AROM Elbows-distally WNL Other Treatments Pt refused all OOB activities due to being "too comfortable." Encouragement/education on sitting upright to assist in pulmonary function. Pt still declining. RN notified. Pt agrees to getting up for lunch "once food get's here." UE AROM exercises performed at bed level. Bilateral shoulder flexion to ~120 degrees. 1x10 all planes. Verbal/tactile cues for technique. OT had to coun t reps out loud as pt forgetful. Education OT Patient Education: Correct positioning, Disease process, Energy conservation, Exercise program, Purpose of tx/functional activities, Safety issues, Transfer techniques Teaching Recipient: Patient Teaching Methods: Discussion Response to Teaching: Verbalize Understanding, Reinforcement Needed OT Television News Reporter Goals [facility] Goals Time Frame: Jul 04, 2022 Eating (QC): 5 Oral Hygiene (QC): 4 Toileting Hygiene (QC): 4 Shower/Bathe Self (QC): 4 Upper Body Dressing (QC): 4 Lower Body Dressing (QC): 3 On/Off Footwear (QC): 3 Additional Goals: 1-Demonstrate ADL Tasks, 2-Verbalize Understanding, 3- ImproveStrength/Abena 1=Demonstrate adherence to instructed precautions during ADL tasks. 2=Patient will verbalize/demonstrate understanding of assistive devices/modifications for ADL. 3=Patient will improve strength/tolerance for activity to enable patient to perform ADL's. OT Education/Plan Problem List/Assessment Assessment: Decreased Activ Tolerance, Decreased Safety Aware, Decreased UE Strength, Impaired Bed Mobility, Impaired Cognition, Impaired Coordination, Impaired Funct Balance, Impaired I ADL's, Impaired Self-Care Skills, Restricted Funct UE ROM, Visual-Perceptual Deficit Discharge Recommendations Plan/Recommendations: Continue POC Therapy Discharge Recommendati: Assisted Living, Post Acute OT Treatment Plan/Plan of Care Treatment,Training & Education: Yes Patient would benefit from OT for education, treatment and training to promote independence in ADL's, mobility, safety and/or upper extremity function for ADL's. Plan of Care: ADL Retraining, Caregiver Training, Functional Mobility, Group Exercise/Act as Ind, Orthotic Fitting/Training, UE Funct Exercise/Act, Visual/Perceptual Retrain Treatment Duration: Jul 04, 2022 Frequency: 3 times per week (3-5x/week ) Estimated Hrs Per Day: .25 hour per day Rehab Potential: Poor Time Start Time: 10:54 Stop Time: 11:04 DATE: Jun 20, 2022 Total Time Billed (hr/min): 10 Billed Treatment Time 1 visit Suzanna Fraga OT Jun 20, 2022 11:14
[2022-06-20] MEDS ORDERED: ALTEPLASE 2 MG (CATHFLO) IV NR ×2 (13:00→13:30)
[2022-06-20] MEDS ORDERED: WATER (STERILE) FOR INJECTION 10 ML ONE (13:35)
--- NOTE | 2022-06-20 13:39 | Tele-ICU Progress Note ---
Subjective Date Seen by a Provider: Jun 20, 2022 Time Seen by a Provider: 09:22 Subjective/Events-last exam (Tele-ICU Physician , Progress Note ) Service provided via interactive audio and video telecommunications E-CARE system to a patient admitted to ICU bed in [facility]. Available chart/ vitals / labs / Images reviewed Video assessment done using teleICU camera, rest of exam as per RN Discussed with RN Events overnight : Afebrile hemodynamically stable Respiratory - 1 l I/O = pos Drips: Pressors- no Consultants: Hospital course: (06/18) 72yr old male admitted from inpatient rehab where he was treated for Covid s/p lumbar surgery. Pt was admitted to the ICU with increase in oxygen demand A/P Acute resp failure - on Bipap 14/6 40 % , rr 17, TV 700 MV 13L- doing well on VT 25l 50%--TODAY IS ON 1 L O2 - started on Decadron IV 06/18- -CONSIDER TO CUT DOWN AND STOP SHORTLY - monitor for VO , implement IS - already on Xarelto - no strong indications to r/o PE CKD/ componebnt DARRICK - STABLE CR, BUT WITH WORSENIGN ACIDOSIS AND POTASSIUM , ONE MIGHT CONSIDER ADDITIONAL HYDRATION = DEPENDING ON EXAM ) Recent COVID19 infection -s/p Paxlovid course -started on Decadron IV 06/18 - already on Xarelto PAF, s/p pacemaker - as per cardiology - 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 leukocytosis most likely from steroids - finishing Doxi PO CAD,- as per cards Hyponatremia - mild HyperKalemia - mild . monitor DM , diabetic retinopathy -ISS Anemia, chronic - stable - as per PCP Lines : PICC 06/13 LEFT , (Central Line Necessity Reviewed) Mcdonald: void OG: Nutrition: Analgesia: Anxiety/ delirium VTE Prophylaxis: xarelto Stress Ulcer Prophylaxis: PPI Plans in collaboration with bedside consultants and IM MDs. Discussed with RN to reach out if any questions or concerns A total of 15 minutes of critical care time was devoted to this patient today, required to treat and/or prevent further deterioration of critical care condition ( as above ) . I am remotely monitoring this patient from another state. I am unable to do the bedside exam, and history/physical and pertinent information is taken from other notes in the computer and bedside staff. . Sepsis Event Evaluation Height, Weight, BMI Height: 5'10.00" Weight: 200lbs. 1.6oz. [id number]; 34.73 BMI Method:Estimated Exam Exam Patient acknowledged, consented, and participated in this virtual visit which was conducted using real time audio/video Vital Signs Date Time Temp Pulse Resp B/P (MAP) Pulse Ox O2 Delivery O2 Flow Rate FiO2 06/20/22 13:00 59 06/20/22 11:09 35.6 61 17 150/101 (117) 92 High Flow N/C 1.00 06/20/22 10:24 93 Nasal Cannula 1.00 06/20/22 09:00 60 13 92 High Flow N/C 1.00 06/20/22 08:00 62 19 141/105 (117) 94 High Flow N/C 1.00 06/20/22 07:50 36.0 06/20/22 07:50 98 High Flow N/C 1.00 06/20/22 07:00 61 06/20/22 07:00 60 15 145/69 (94) 94 High Flow N/C 1.00 06/20/22 06:59 High Flow N/C 1.00 06/20/22 06:54 100 Nasal Cannula 4.00 06/20/22 06:00 62 11 151/66 (94) 96 High Flow N/C 4.00 06/20/22 05:00 60 18 146/102 (117) 92 High Flow N/C 4.00 06/20/22 04:00 60 15 140/70 (93) 100 High Flow N/C 4.00 06/20/22 03:33 36.5 06/20/22 03:32 100 High Flow N/C 4.00 06/20/22 03:28 Nasal Cannula 4.00 06/20/22 03:00 60 13 136/61 (86) 97 High Flow N/C 4.00 06/20/22 02:00 60 14 132/58 (82) 97 High Flow N/C 4.00 06/20/22 01:00 61 18 132/73 (92) 98 High Flow N/C 4.00 06/20/22 01:00 61 06/20/22 00:00 60 15 127/58 (81) 100 High Flow N/C 4.00 06/19/22 23:40 99 High Flow N/C 4.00 06/19/22 23:39 36.9 06/19/22 23:00 61 14 143/70 (94) 100 High Flow N/C 4.00 06/19/22 22:00 60 20 147/69 (95) 100 High Flow N/C 4.00 06/19/22 21:46 High Flow N/C 4.00 06/19/22 21:32 NIV Bilevel 40.00 06/19/22 21:25 61 20 99 40.00 06/19/22 21:00 66 18 145/61 (89) 95 High Flow N/C 4.00 06/19/22 20:00 60 18 139/57 (84) 94 High Flow N/C 4.00 06/19/22 20:00 36.8 06/19/22 19:54 94 High Flow N/C 4.00 06/19/22 19:42 36.7 06/19/22 19:00 61 06/19/22 19:00 61 19 148/60 (89) High Flow N/C 4.00 06/19/22 18:00 75 20 145/104 (118) High Flow N/C 4.00 06/19/22 17:00 61 21 118/52 (74) 94 High Flow N/C 4.00 06/19/22 16:00 98 Vapotherm 35.00 55 06/19/22 16:00 61 25 138/56 (83) 91 High Flow N/C 4.00 06/19/22 15:00 63 25 92 High Flow N/C 4.00 06/19/22 14:57 92 Nasal Cannula 4.00 06/19/22 14:00 60 20 150/64 (92) 91 High Flow N/C 4.00 I & O 06/20/22 07:00 Intake Total 2160 ml Balance 2160 ml Height & Weight Height: 5'10.00" Weight: 200lbs. 1.6oz. [id number]; 34.73 BMI Method:Estimated General Appearance: Anxious, Chronically ill, Mild Distress HEENT: PERRL/EOMI, Normal ENT Inspection, Pharynx Normal Neck: Full Range of Motion, Normal Inspection, Non Tender, Supple, Carotid Bruit Respiratory: Accessory Muscle Use, Crackles, Decreased Breath Sounds, Wheezing Cardiovascular: Regular Rate, Rhythm, No Edema, No Gallop, No JVD, No Murmur, Normal Peripheral Pulses Neurologic/Psychiatric: Alert, Oriented x3, No Motor/Sensory Deficits, Normal Mood/Affect Results Lab Laboratory Tests 06/18/22 23:35 06/19/22 06:30 06/20/22 04:20 Assessment/Plan Assessment/Plan 1 MELBA DOUGLAS MD Jun 20, 2022 13:39
--- NOTE | 2022-06-20 14:48 | Physical Therapy Evaluation ---
PT Evaluation-General Medical Diagnosis Admission Date Jun 18, 2022 at 20:37 Medical Diagnosis: Respiratory failure Onset Date: Jun 13, 2022 Therapy Diagnosis Therapy Diagnosis: impaired mobility Height/Weight Height (Feet): 5 Height (Inches): 10.00 Weight (Pounds): 200 Weight (Ounces): 1.6 Precautions Precautions/Isolations: Airborne Isolation, Contact Isolation, Droplet Isolation, Fall Prevention, Standard Precautions Weight Bear Status LSO on when out of bed Referral Physician: Sherine Barriga DO Reason for Referral: Evaluation/Treatment Medical History Pertinent Medical History: CAD, CVA, DM, GERD, Heart Failure, HTN Additional Medical History PMH: Covid-PNA Coronary Artery Disease, Heart Attack, High Cholesterol, Hypertension Sexually Transmitted Disease: No HIV/AIDS: No Prostate Problems Gastroesophageal Reflux Diabetes, Non-Insulin dep Loss of Vision: diabetic retinopathy Depression Blood Disorders: No Adverse Reaction/Blood Tranf: No PSH: coronary stent, orthopedic(back surgery) Current History s/p L5-Pelvis PSIF from Jun 13 Reviewed History: Yes Social History Home: Single Level Current Living Status: Significant Other Entry Into Home: Stairs Without Railing PT Steps Into Home: 4 Prior Prior Level of Function SCALE: Activities may be completed with or without assistive devices. 0-Ixxphnfcbj-wncodhm completes the activity by him/herself with no assistance from a helper. 5-Set-up or Clean-up Assistance-helper sets up or cleans up; patient completes activity. [place] assists only prior to or following the activity. 4-Supervision or Touching Assistance-helper provides verbal cues and/or touching/steadying and/or contact guard assistance as patient completes activity. Assistance may be provided throughout the activity or intermittently. 3-Partial/Moderate Assistance-helper does LESS THAN HALF the effort. [place] lifts, holds or supports trunk or limbs, but provides less than half the effort. 2-Substantial/Maximal Assistance-helper does MORE THAN HALF the effort. [place] lifts or holds trunk or limbs and provides more than half the effort. 6-Nbyuwbpfg-erebej does ALL the effort. Patient does none of the effort to complete the activity. Or, the assistance of 2 or more helpers is required for the patient to complete the activity. If activity was not attempted, code reason: 7-Patient Refused. 9-Not Applicable-not attempted and the patient did not perform the activity before the current illness, exacerbation or injury. 10-Not Attempted due to Environmental Limitations-(lack of equipment, weather restraints, etc.). 88-Not Attempted due to Medical Conditions or Safety Concerns. Bed Mobility: 6 Transfers (B,C,W/C): 6 Gait: 6 Stairs: 6 Indoor Mobility (Ambulation): Independent Stairs: Independent Prior Devices Use: Walker PT Evaluation-Current Subjective Patient in bed pre tx, agrees to PT, states he doesn't have any pain. Pt/Family Goals to be independent at home Objective Patient Orientation: Person, Place, Situation Attachments: Oxygen ROM/Strength ROM Lower Extremities WNL Strength Lower Extremities grossly 3+/5 BLE Sensory Vision: Wears Glasses Hand Dominance: Left Sensation Right Lower Extremit: Intact Sensation Left Lower Extremity: Intact Transfers Roll Left to Right (QC): 3 Lying to Sitting/Side of Bed(Q: 3 Sit to Stand (QC): 4 Chair/Egq-dz-Ccsld Xfer(QC): 4 min assist for supine to sit, CGA for sit to stand and transfers, cues for hand placement and positioning Gait Does the Patient Walk?: Yes Mode of Locomotion: Walk Anticipated Mode of Locomotion: Walk Walk 10 feet (QC): 4 Distance: 15' Gait Assistive Device: FWW Comments/Gait Description Slow ambulation, slightly unsteady but no LOB, CGA, SOB with ambulation but O2 was 91% afterward Balance Sitting Static: Fair Sitting Dynamic: Fair Standing Static: Fair Standing Dynamic: Fair Treatment BLE seated exercise x20 (AP, LAQ) Assessment/Needs Patient in recliner post tx with nurse call, phone, tray, all needs met. Patient had a soaked brief and bed, new brief donned and patient in recliner, bed not changed because he is going to the 4th floor in a few minutes. Nurse notified. Rehab Potential: Fair PT Longterm Goals Sales Support Rep Goals PT Sales Support Rep Goals Time Frame: Jun 27, 2022 Roll Left & Right (QC): 4 (SBA) Sit to Lying (QC): 4 (SBA) Lying-Sitting on Side/Bed(QC): 4 (SBA) Sit to Stand (QC): 4 (SBA) Chair/Rwe-mp-Trztq Xfer(QC): 4 (SBA) Walk 10 feet (QC): 4 (SBA) Walk 50ft with 2 Turns (QC): 4 (SBA) PT Plan Problem List Problem List: Activity Tolerance, Functional Strength, Safety, Balance, Gait, Transfer, Bed Mobility, ROM Treatment/Plan Treatment Plan: Continue Plan of Care Treatment Plan: Bed Mobility, Education, Functional Activity Abena, Functional Strength, Gait, Safety, Therapeutic Exercise, Transfers Treatment Duration: Jun 27, 2022 Frequency: 6 times per week Estimated Hrs Per Day: .25 hour per day Patient and/or Family Agrees t: Yes Safety Risks/Education Patient Education: Gait Training, Transfer Techniques, Correct Positioning, Safety Issues Teaching Recipient: Patient Teaching Methods: Demonstration, Discussion Response to Teaching: Reinforcement Needed Discharge Recommendations Plan Patient will perform bed mobility and transfer training, balance and endurance training, functional strengthening, stair training, gait training, and education, to improve functional mobility and independence at home. Therapy Discharge Recommendati: Scheduled Assistance, Home & Family, Post Acute PT Time Time In: 1420 Time Out: 1435 DATE: Jun 20, 2022 Total Billed Treatment Time: 15 Total Billed Treatment 1 visit LAN WAITE PT Jun 20, 2022 14:48
[2022-06-20] MEDS: IRON SUCROSE 200 MG/10 ML (VENOFER) VIAL IV SCH (17:22)
[2022-06-20] MEDS: inSUlin (REGULAR) HUMAN 1 UNIT/0.01 ML (CHARGE PER UNIT) SC PRN ×2 (17:23→21:18)
[2022-06-20 19:45] VITALS: BP 145/67
[2022-06-20] MEDS: RIVAROXABAN 15 MG TABLET (XARELTO) PO SCH (21:18)
[2022-06-20] MEDS: LATANOPROST 0.005% (XALATAN) OPHTH SOLN 2.5 ML OU SCH (21:23)
[2022-06-20 23:53] VITALS: BP 154/79
[2022-06-21] MEDS: RT-ALBUTEROL HFA 8.5 GM INHALER IH SCH ×5 (02:45→23:45)
[2022-06-21 03:46] VITALS: BP 156/78
[2022-06-21] MEDS: inSUlin ASPART (NovoLOG) 1 UNIT/0.01 ML (CHARGE PER UNIT) SC SCH ×4 (05:09→20:48)
[2022-06-21] MEDS: DOXYCYCLINE 100 MG (VIBRAMYCIN) TABLET PO SCH ×2 (05:21→16:51)
[2022-06-21] MEDS: CYANOCOBALAMIN 1,000 MCG (VITAMIN B-12) TABLET PO SCH (05:21)
[2022-06-21] MEDS: PANTOPRAZOLE 40 MG (PROTONIX) TAB PO SCH ×2 (05:21→16:52)
[2022-06-21] MEDS: CATHETER FLUSH 10 ML SYR IVP SCH ×3 (05:21→20:50)
[2022-06-21 05:41] LABS: BASOPHILS % (AUTO) 0 % (0-10); EOSINOPHILS % (AUTO) 0 % (0-10); HEMATOCRIT 25 % (40-54); LYMPHOCYTES # (AUTO) 0.9 10^3/uL (1.0-4.0); LYMPHOCYTES % (AUTO) 6 % (12-44); MEAN CORPUSCULAR HEMOGLOBIN 29 pg (25-34); MEAN CORPUSCULAR HGB CONC 32 g/dL (32-36); MEAN CORPUSCULAR VOLUME 89 fL (80-99); MEAN PLATELET VOLUME 10.9 fL (9.0-12.2); MONOCYTES # (AUTO) 0.6 10^3/uL (0.0-1.0); MONOCYTES % (AUTO) 4 % (0-12); NEUTROPHILS # (AUTO) 12.9 10^3/uL (1.8-7.8); NEUTROPHILS % (AUTO) 86 % (42-75); PLATELET COUNT 473 10^3/uL (130-400)
[2022-06-21 05:42] LABS: ALBUMIN 2.9 GM/DL (3.2-4.5); POTASSIUM 5.2 MMOL/L (3.6-5.0)
[2022-06-21 05:44] LABS: TOTAL PROTEIN 6.2 GM/DL (6.4-8.2)
[2022-06-21 05:46] LABS: BILIRUBIN,TOTAL 0.2 MG/DL (0.1-1.0)
[2022-06-21 05:48] LABS: CREATININE SERUM 1.98 MG/DL (0.60-1.30)
[2022-06-21 05:51] LABS: MAGNESIUM 1.6 MG/DL (1.6-2.4)
[2022-06-21 06:38] LABS: ATYPICAL LYMPHOCYTES 1 %; LYMPHOCYTES % (MANUAL) 11 %; MONOCYTES % (MANUAL) 4 %; MYELOCYTES % 1 %; NEUTROPHILS % (MANUAL) 83 %
[2022-06-21 06:39] LABS: ANISOCYTOSIS SLIGHT; NUCLEATED RED BLOOD CELLS 2; POLYCHROMASIA SLIGHT
[2022-06-21 06:40] LABS: BURR CELLS SLIGHT; ELLIPT/OVALOCYTES SLIGHT
--- NOTE | 2022-06-21 07:52 | Progress Note ---
Subjective Date Seen by a Provider: Jun 21, 2022 Time Seen by a Provider: 10:30 Subjective/Events-last exam Much improved status Wants to go home Moving around really well APS report on living conditions places him without a disposition No longer needing intense oxygen Review of Systems General: Fatigue, Malaise Pulmonary: Dyspnea Musculoskeletal: back pain Objective Exam Last Set of Vital Signs Vital Signs Date Time Temp Pulse Resp B/P (MAP) Pulse Ox O2 Delivery O2 Flow Rate FiO2 06/21/22 07:24 91 Nasal Cannula 1.00 06/21/22 03:46 36.5 62 20 156/78 (104) 06/19/22 16:00 55 Capillary Refill : I&O Intake and Output 06/21/22 00:00 Intake Total 2490 ml Balance 2490 ml Intake Oral 2490 ml # Voids 2 # Urine Diapers 4 General: Alert, Oriented X3, Cooperative, No Acute Distress Lungs: Clear to Auscultation, Normal Air Movement Heart: Regular Rate, Normal S1, Normal S2, No Murmurs Psych/Mental Status: Mental Status NL, Mood NL Results Lab Laboratory Tests 06/20/22 11:02: Glucometer 292H 06/20/22 16:49: Glucometer 312H 06/20/22 20:32: Glucometer 352H 06/21/22 05:06: Glucometer 127H 06/21/22 05:20: White Blood Count 15.0H, Red Blood Count 2.78L, Hemoglobin 8.0L, Hematocrit 25L, Mean Corpuscular Volume 89, Mean Corpuscular Hemoglobin 29, Mean Corpuscular Hemoglobin Concent 32, Red Cell Distribution Width 14.4, Platelet Count 473H, Mean Platelet Volume 10.9, Immature Granulocyte % (Auto) 3, Neutrophils (%) (Auto) 86H, Lymphocytes (%) (Auto) 6L, Monocytes (%) (Auto) 4, Eosinophils (%) (Auto) 0, Basophils (%) (Auto) 0, Neutrophils # (Auto) 12.9H, Lymphocytes # (Auto) 0.9L, Monocytes # (Auto) 0.6, Eosinophils # (Auto) 0.0, Basophils # (Auto) 0.0, Immature Granulocyte # (Auto) 0.5H, Neutrophils % (Manual) 83, Lymphocytes % (Manual) 11, Monocytes % (Manual) 4, Myelocytes % 1, Nucleated Red Blood Cells 2, Atypical Lymphocytes 1, Polychromasia SLIGHT, Anisocytosis SLIGHT, [place] Cells SLIGHT, Elliptocytes SLIGHT, Sodium Level 134L, Potassium Level 5.2H, Chloride Level 107, Carbon Dioxide Level 18L, Anion Gap 9, Blood Urea Nitrogen 63H, Creatinine 1.98H, Estimat Glomerular Filtration Rate 36, BUN/Creatinine Ratio 32, Glucose Level 125H, Calcium Level 8.0L, Corrected Calcium 8.9, Magnesium Level 1.6, Total Bilirubin 0.2, Aspartate Amino Transf (AST/SGOT) 13, Alanine Aminotransferase (ALT/SGPT) 12, Alkaline Phosphatase 72, Total Protein 6.2L, Albumin 2.9L Microbiology 06/18/22 MRSA Screen - Final, Complete MRSA not isolated Assessment/Plan Assessment/Plan Assess & Plan/Chief Complaint Assessment: Acute respiratory failure requiring BiPAP and Vapotherm now on 1 L and moving to fourth floor now much improved COVID-pneumonia Bacterial pneumonia Chronic kidney disease from diabetic nephropathy Low vision due to diabetic retinopathy Anemia requiring IV iron infusions Intellectual delay lifelong Atrial fibrillation Peripheral vascular disease Recent lumbar spine surgery requiring inpatient rehab Plan: ICU care completed moving to fourth Vapotherm discontinued BiPAP no longer necessary Anticoagulation decreased dose due to NATHALIA Tucker DO Jun 21, 2022 07:52
[2022-06-21] MEDS: CLOPIDOGREL 75 MG (PLAVIX) TABLET PO SCH (08:34)
[2022-06-21] MEDS: GABAPENTIN 300 MG (NEURONTIN) CAP PO SCH ×2 (08:34→20:48)
[2022-06-21] MEDS: SODIUM BICARBONATE 650 MG TABLET PO SCH ×2 (08:34→20:48)
[2022-06-21] MEDS: amLODIPine 5 MG (NORVASC) TAB PO SCH (08:34)
[2022-06-21] MEDS: SENNA W/DOCUSATE (SENOKOT S) TABLET PO SCH ×2 (08:36→20:48)
[2022-06-21] MEDS: SENNOSIDES 8.6 MG (SENOKOT) TAB PO SCH ×2 (08:36→21:00)
[2022-06-21] MEDS: DORZOLAMIDE/TIMOLOL (COSOPT) 2-0.68% 10 ML BTL OU SCH ×2 (08:37→20:49)
[2022-06-21] MEDS: BRIMONIDINE 0.2% (ALPHAGAN) OPHTH SOLN 5 ML BTL OD SCH ×2 (08:38→20:49)
[2022-06-21 08:43] VITALS: BP 160/72
--- NOTE | 2022-06-21 11:14 | Occupational Ther Daily Note ---
OT Current Status-Daily Note Subjective Pt reports feeling much better. 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 Mental Status/Objective Patient Orientation: Person, Confused Attachments: IV, Oxygen ADL-Treatment Therapy Code Descriptions/Definitions Functional [place] Measure: 0=Not Assessed/NA 4=Minimal Assistance 1=Total Assistance 5=Supervision or Setup 2=Maximal Assistance 6=Modified [place] 3=Moderate Assistance 7=Complete IndependenceSCALE: Activities may be completed with or without assistive devices. 7-Xhtlovadnp-cmnsrcu completes the activity by him/herself with no assistance from a helper. 5-Set-up or Clean-up Assistance-helper sets up or cleans up; patient completes activity. [place] assists only prior to or following the activity. 4-Supervision or Touching Assistance-helper provides verbal cues and/or touching/steadying and/or contact guard assistance as patient completes activity. Assistance may be provided throughout the activity or intermittently. 3-Partial/Moderate Assistance-helper does LESS THAN HALF the effort. [place] lifts, holds or supports trunk or limbs, but provides less than half the effort. 2-Substantial/Maximal Assistance-helper does MORE THAN HALF the effort. [place] lifts or holds trunk or limbs and provides more than half the effort. 0-Axxjdspln-tbcovq does ALL the effort. Patient does none of the effort to complete the activity. Or, the assistance of 2 or more helpers is required for the patient to complete the activity. If activity was not attempted, code reason: 7-Patient Refused. 9-Not Applicable-not attempted and the patient did not perform the activity before the current illness, exacerbation or injury. 10-Not Attempted due to Environmental Limitations-(lack of equipment, weather restraints, etc.). 88-Not Attempted due to Medical Conditions or Safety Concerns. Upper Body Dressing (QC): 2 (LSO brace) Lower Body Dressing (QC): 2 On/Off Footwear: 1 Toileting Hygiene (QC): 3 Toilet Transfer (QC): 4 Pt sitting on side of bed with RT present at therapist arrival. He reports feeling much better. He stood with SBA-CGA and extra time. Cues for hand placement and to ensure brakes are locked on 4WW. Upon standing, pt found to be incontinent of large amount of urine that soaked through brief, chucks pad, and bed linens. He ambulated within bathroom with SBA-CGA and 4WW. Cues for safety and awareness of O2 line. Assist needed to clean backside, pt able to wash front spike area with CGA. Due to spinal precautions and poor LE flexibility/strength, pt is dependent to don brief over feet. He requires at least 1 UE support on walker when standing to manage brief over hips, min a needed to pull up completely. C/o fatigue after minimal activity. Education OT Patient Education: Correct positioning, Energy conservation, Instructions don/doff splint/brace (LSO brace), Modified ADL techniques, Purpose of tx/functional activities, Reviewed precautions, Rehab process, Safety issues, Transfer techniques Teaching Recipient: Patient Teaching Methods: Discussion Response to Teaching: Verbalize Understanding, Return Demonstration, Reinforcement Needed OT Seam Taper Machine Goals Seam Taper Machine Goals Time Frame: Jul 04, 2022 Eating (QC): 5 Oral Hygiene (QC): 4 Toileting Hygiene (QC): 4 Shower/Bathe Self (QC): 4 Upper Body Dressing (QC): 4 Lower Body Dressing (QC): 3 On/Off Footwear (QC): 3 Additional Goals: 1-Demonstrate ADL Tasks, 2-Verbalize Understanding, 3- ImproveStrength/Abena 1=Demonstrate adherence to instructed precautions during ADL tasks. 2=Patient will verbalize/demonstrate understanding of assistive devices/modifications for ADL. 3=Patient will improve strength/tolerance for activity to enable patient to perform ADL's. OT Education/Plan Problem List/Assessment Assessment: Decreased Activ Tolerance, Decreased Safety Aware, Decreased UE Strength, Impaired Cognition, Impaired Funct Balance, Impaired I ADL's, Impaired Self-Care Skills, Visual-Perceptual Deficit Discharge Recommendations Plan/Recommendations: Continue POC Therapy Discharge Recommendati: Assisted Living, Post Acute OT Treatment Plan/Plan of Care Patient would benefit from OT for education, treatment and training to promote independence in ADL's, mobility, safety and/or upper extremity function for AD L's. Plan of Care: ADL Retraining, Caregiver Training, Functional Mobility, Group Exercise/Act as Ind, Orthotic Fitting/Training, UE Funct Exercise/Act, Visual/Perceptual Retrain Treatment Duration: Jul 04, 2022 Frequency: 3 times per week (3-5x/week ) Estimated Hrs Per Day: .25 hour per day Rehab Potential: Fair Time Start Time: 10:48 Stop Time: 11:02 DATE: Jun 21, 2022 Total Time Billed (hr/min): 14 Billed Treatment Time 1 visit ADL Suzanna Lizama OT Jun 21, 2022 11:14
[2022-06-21 11:39] VITALS: BP 155/70
--- NOTE | 2022-06-21 11:39 | Physical Therapy Daily Note ---
PT Daily Note-Current Subjective Patient agrees to PT. Pain Section J - Health Conditions 1. Rarely or not at all 2. Occasionally 3. Frequently 4. Almost constantly 8. Unable to answer Pain Effect on Sleep: 1 Pain Interference with Therapy: 1 Pain Interference w/Day-to-Day: 1 Mental Status Attachments: Oxygen Transfers SCALE: Activities may be completed with or without assistive devices. 8-Tnqcrcphlq-dwewwja completes the activity by him/herself with no assistance from a helper. 5-Set-up or Clean-up Assistance-helper sets up or cleans up; patient completes activity. [place] assists only prior to or following the activity. 4-Supervision or Touching Assistance-helper provides verbal cues and/or touching/steadying and/or contact guard assistance as patient completes activity. Assistance may be provided throughout the activity or intermittently. 3-Partial/Moderate Assistance-helper does LESS THAN HALF the effort. [place] lifts, holds or supports trunk or limbs, but provides less than half the effort. 2-Substantial/Maximal Assistance-helper does MORE THAN HALF the effort. [place] lifts or holds trunk or limbs and provides more than half the effort. 1-Myiyfpgnl-ykvfns does ALL the effort. Patient does none of the effort to complete the activity. Or, the assistance of 2 or more helpers is required for the patient to complete the activity. If activity was not attempted, code reason: 7-Patient Refused. 9-Not Applicable-not attempted and the patient did not perform the activity before the current illness, exacerbation or injury. 10-Not Attempted due to Environmental Limitations-(lack of equipment, weather restraints, etc.). 88-Not Attempted due to Medical Conditions or Safety Concerns. Sit to Stand (QC): 4 (SBA) Chair/Zmg-ot-Elsfx Xfer(QC): 4 (SBA) Toilet Transfer (QC): 4 (SBA) Weight Bearing LSO on when out of bed Gait Training Does the Patient Walk?: Yes Distance: 50' x 1/ 15' x 1 Walk 10 feet (QC): 4 (SBA) Walk 50 ft with 2 Turns(QC): 4 (SBA) Gait Assistive Device: Walker 4 Wheeled functional gait sequence/SBA with all mobility Assessment Patient incontinent urine requiring assist to change depends. Patient progressing with treatment plan. Mild SOA noted with minimal activity with O2 in place. PT Linux System Engineer Goals Linux System Engineer Goals PT [facility] Goals Time Frame: Jun 27, 2022 Roll Left & Right (QC): 4 (SBA) Sit to Lying (QC): 4 (SBA) Lying-Sitting on Side/Bed(QC): 4 (SBA) Sit to Stand (QC): 4 (SBA) Chair/Rrw-cx-Dsbwp Xfer(QC): 4 (SBA) Walk 10 feet (QC): 4 (SBA) Walk 50ft with 2 Turns (QC): 4 (SBA) PT Plan Treatment/Plan Treatment Plan: Continue Plan of Care Treatment Plan: Bed Mobility, Education, Functional Activity Abena, Functional Strength, Gait, Safety, Therapeutic Exercise, Transfers Treatment Duration: Jun 27, 2022 Frequency: 6 times per week Estimated Hrs Per Day: .25 hour per day Patient and/or Family Agrees t: Yes Time Time In: 1048 Time Out: 1102 DATE: Jun 21, 2022 Total Billed Treatment Time: 14 Total Billed Treatment 1 visit FA 14 min EDUAR HERRING PT Jun 21, 2022 11:39
[2022-06-21 16:27] VITALS: BP 149/68
[2022-06-21] MEDS: inSUlin (REGULAR) HUMAN 1 UNIT/0.01 ML (CHARGE PER UNIT) SC PRN ×2 (16:51→20:48)
[2022-06-21 20:12] VITALS: BP 157/71
[2022-06-21] MEDS: RIVAROXABAN 15 MG TABLET (XARELTO) PO SCH (20:48)
[2022-06-21] MEDS: LATANOPROST 0.005% (XALATAN) OPHTH SOLN 2.5 ML OU SCH (20:49)
[2022-06-22] VITALS (7 sets, daily range): BP systolic 137–170; BP diastolic 63–82
[2022-06-22] MEDS: RT-ALBUTEROL HFA 8.5 GM INHALER IH SCH ×3 (03:02→11:08)
[2022-06-22 05:36] LABS: BASOPHILS % (AUTO) 0 % (0-10); EOSINOPHILS % (AUTO) 0 % (0-10); HEMATOCRIT 26 % (40-54); HEMOGLOBIN 8.4 g/dL (13.3-17.7); LYMPHOCYTES # (AUTO) 1.1 10^3/uL (1.0-4.0); LYMPHOCYTES % (AUTO) 7 % (12-44); MEAN CORPUSCULAR HEMOGLOBIN 29 pg (25-34); MEAN CORPUSCULAR HGB CONC 33 g/dL (32-36); MEAN CORPUSCULAR VOLUME 89 fL (80-99); MEAN PLATELET VOLUME 10.7 fL (9.0-12.2); MONOCYTES # (AUTO) 1.3 10^3/uL (0.0-1.0); MONOCYTES % (AUTO) 9 % (0-12); NEUTROPHILS # (AUTO) 12.4 10^3/uL (1.8-7.8); NEUTROPHILS % (AUTO) 82 % (42-75); PLATELET COUNT 522 10^3/uL (130-400); WHITE BLOOD COUNT 15.1 10^3/uL (4.3-11.0)
--- NOTE | 2022-06-22 05:55 | Progress Note ---
Subjective Date Seen by a Provider: Jun 22, 2022 Time Seen by a Provider: 11:30 Objective Exam Last Set of Vital Signs Vital Signs Date Time Temp Pulse Resp B/P (MAP) Pulse Ox O2 Delivery O2 Flow Rate FiO2 06/22/22 03:35 36.6 65 16 137/65 (89) 97 Room Air 06/22/22 03:03 1.00 06/19/22 16:00 55 Capillary Refill : I&O Intake and Output 06/22/22 00:00 Intake Total 1220 ml Balance 1220 ml Intake Oral 1220 ml # Voids 4 # Urine Diapers 1 Results Lab Laboratory Tests 06/21/22 16:31: Glucometer 403*H 06/21/22 20:14: Glucometer 326H 06/22/22 05:25: White Blood Count 15.1H, Red Blood Count 2.89L, Hemoglobin 8.4L, Hematocrit 26L, Mean Corpuscular Volume 89, Mean Corpuscular Hemoglobin 29, Mean Corpuscular Hemoglobin Concent 33, Red Cell Distribution Width 14.5, Platelet Count 522H, Mean Platelet Volume 10.7, Immature Granulocyte % (Auto) 3, Neutrophils (%) (Auto) 82H, Lymphocytes (%) (Auto) 7L, Monocytes (%) (Auto) 9, Eosinophils (%) (Auto) 0, Basophils (%) (Auto) 0, Neutrophils # (Auto) 12.4H, Lymphocytes # (A uto) 1.1, Monocytes # (Auto) 1.3H, Eosinophils # (Auto) 0.0, Basophils # (Auto) 0.0, Immature Granulocyte # (Auto) 0.4H Microbiology 06/18/22 MRSA Screen - Final, Complete MRSA not isolated Assessment/Plan Assessment/Plan Assess & Plan/Chief Complaint Assessment: Acute respiratory failure requiring BiPAP and Vapotherm now on 1 L and moving to fourth floor now much improved COVID-pneumonia Bacterial pneumonia Chronic kidney disease from diabetic nephropathy Low vision due to diabetic retinopathy Anemia requiring IV iron infusions Intellectual delay lifelong Atrial fibrillation Peripheral vascular disease Recent lumbar spine surgery requiring inpatient rehab Plan: ICU care completed moving to fourth Vapotherm discontinued BiPAP no longer necessary Anticoagulation decreased dose due to NATHALIA Tucker DO Jun 22, 2022 05:55
[2022-06-22 06:07] LABS: ALBUMIN 2.8 GM/DL (3.2-4.5); BILIRUBIN,TOTAL 0.3 MG/DL (0.1-1.0); CALCIUM 7.8 MG/DL (8.5-10.1); CREATININE SERUM 2.05 MG/DL (0.60-1.30); MAGNESIUM 1.6 MG/DL (1.6-2.4); POTASSIUM 4.7 MMOL/L (3.6-5.0); TOTAL PROTEIN 6.1 GM/DL (6.4-8.2)
[2022-06-22] MEDS: PANTOPRAZOLE 40 MG (PROTONIX) TAB PO SCH ×2 (06:42→16:19)
[2022-06-22] MEDS: DOXYCYCLINE 100 MG (VIBRAMYCIN) TABLET PO SCH ×2 (06:42→17:26)
[2022-06-22] MEDS: CYANOCOBALAMIN 1,000 MCG (VITAMIN B-12) TABLET PO SCH (06:42)
[2022-06-22] MEDS: inSUlin ASPART (NovoLOG) 1 UNIT/0.01 ML (CHARGE PER UNIT) SC SCH ×4 (06:42→21:05)
[2022-06-22] MEDS: CATHETER FLUSH 10 ML SYR IVP SCH ×3 (06:44→21:04)
[2022-06-22] MEDS: SENNOSIDES 8.6 MG (SENOKOT) TAB PO SCH ×2 (08:08→21:07)
[2022-06-22] MEDS: IRON SUCROSE 200 MG/10 ML (VENOFER) VIAL IV SCH (08:08)
[2022-06-22] MEDS: SODIUM BICARBONATE 650 MG TABLET PO SCH ×2 (08:08→21:04)
[2022-06-22] MEDS: CLOPIDOGREL 75 MG (PLAVIX) TABLET PO SCH (08:08)
[2022-06-22] MEDS: GABAPENTIN 300 MG (NEURONTIN) CAP PO SCH ×2 (08:08→21:04)
[2022-06-22] MEDS: SENNA W/DOCUSATE (SENOKOT S) TABLET PO SCH ×2 (08:08→21:04)
[2022-06-22] MEDS: amLODIPine 5 MG (NORVASC) TAB PO SCH (08:08)
[2022-06-22] MEDS: DORZOLAMIDE/TIMOLOL (COSOPT) 2-0.68% 10 ML BTL OU SCH ×2 (08:09→21:07)
[2022-06-22] MEDS: BRIMONIDINE 0.2% (ALPHAGAN) OPHTH SOLN 5 ML BTL OD SCH ×2 (08:09→21:05)
--- NOTE | 2022-06-22 11:19 | Occupational Ther Daily Note ---
OT Current Status-Daily Note Subjective Pt continues to report feeling better. He was asleep at therapy arrival, easy to waken. Appearance Pt left sitting upright in recliner, RT entering room. Mental Status/Objective Patient Orientation: Person Attachments: IV ADL-Treatment Therapy Code Descriptions/Definitions Functional Bryan Measure: 0=Not Assessed/NA 4=Minimal Assistance 1=Total Assistance 5=Supervision or Setup 2=Maximal Assistance 6=Modified Bryan 3=Moderate Assistance 7=Complete IndependenceSCALE: Activities may be completed with or without assistive devices. 7-Xkkppgbonc-buaitge completes the activity by him/herself with no assistance from a helper. 5-Set-up or Clean-up Assistance-helper sets up or cleans up; patient completes activity. [place] assists only prior to or following the activity. 4-Supervision or Touching Assistance-helper provides verbal cues and/or touching/steadying and/or contact guard assistance as patient completes activity. Assistance may be provided throughout the activity or intermittently. 3-Partial/Moderate Assistance-helper does LESS THAN HALF the effort. [place] lifts, holds or supports trunk or limbs, but provides less than half the effort. 2-Substantial/Maximal Assistance-helper does MORE THAN HALF the effort. [place] lifts or holds trunk or limbs and provides more than half the effort. 7-Masgdbdeg-djecce does ALL the effort. Patient does none of the effort to complete the activity. Or, the assistance of 2 or more helpers is required for the patient to complete the activity. If activity was not attempted, code reason: 7-Patient Refused. 9-Not Applicable-not attempted and the patient did not perform the activity before the current illness, exacerbation or injury. 10-Not Attempted due to Environmental Limitations-(lack of equipment, weather restraints, etc.). 88-Not Attempted due to Medical Conditions or Safety Concerns. Toileting Hygiene (QC): 4 Toilet Transfer (QC): 4 Pt sleeping at therapy arrival. Easy to waken. Currently on room air, HOISTING ENGINEER reports pt has been satting at 93%. Oxygen monitored throughout, remains >95%. Supine>sit with Min a to elevate torso. CGA to stand. Once standing, pt able to maintain balance with close supervision, intermittent CGA for safety. He ambulated within room with 4WW, min cues for walker management. Pt continent of urine this date. He stood at toilet to void, min cues to step closer to toilet. Pt able to manage brief with supervision. Encouragement/education to sit up in chair at end of treatment. Education OT Patient Education: Correct positioning, Progress toward Goal/Update tx plan, Purpose of tx/functional activities, Safety issues, Transfer techniques Teaching Recipient: Patient Teaching Methods: Discussion Response to Teaching: Verbalize Understanding, Return Demonstration, Reinf orcement Needed OT Nursing Home Goals Nursing Home Goals Time Frame: Jul 04, 2022 Eating (QC): 5 Oral Hygiene (QC): 4 Toileting Hygiene (QC): 4 Shower/Bathe Self (QC): 4 Upper Body Dressing (QC): 4 Lower Body Dressing (QC): 3 On/Off Footwear (QC): 3 Additional Goals: 1-Demonstrate ADL Tasks, 2-Verbalize Understanding, 3- ImproveStrength/Abena 1=Demonstrate adherence to instructed precautions during ADL tasks. 2=Patient will verbalize/demonstrate understanding of assistive devices/modifications for ADL. 3=Patient will improve strength/tolerance for activity to enable patient to perform ADL's. OT Education/Plan Problem List/Assessment Assessment: Decreased Activ Tolerance, Decreased Safety Aware, Decreased UE Strength, Impaired Cognition, Impaired Funct Balance, Impaired I ADL's, Impaired Self-Care Skills, Restricted Funct UE ROM Discharge Recommendations Plan/Recommendations: Continue POC Treatment Plan/Plan of Care Treatment,Training & Education: Yes Patient would benefit from OT for education, treatment and training to promote independence in ADL's, mobility, safety and/or upper extremity function for ADL's. Plan of Care: ADL Retraining, Caregiver Training, Functional Mobility, Group Exercise/Act as Ind, Orthotic Fitting/Training, UE Funct Exercise/Act, Visual/Perceptual Retrain Treatment Duration: Jul 04, 2022 Frequency: 3 times per week (3-5x/week ) Estimated Hrs Per Day: .25 hour per day Rehab Potential: Fair Time Start Time: 10:57 Stop Time: 11:10 DATE: Jun 22, 2022 Total Time Billed (hr/min): 13 Billed Treatment Time 1 visit ADL Suzanna Lizama OT Jun 22, 2022 11:19
--- NOTE | 2022-06-22 11:52 | Physical Therapy Daily Note ---
PT Daily Note-Current Subjective Patient agrees to PT. Pain Section J - Health Conditions 1. Rarely or not at all 2. Occasionally 3. Frequently 4. Almost constantly 8. Unable to answer Pain Effect on Sleep: 1 Pain Interference with Therapy: 1 Pain Interference w/Day-to-Day: 1 Mental Status Patient Orientation: Normal For Age Transfers SCALE: Activities may be completed with or without assistive devices. 1-Ewgrovynae-daozzse completes the activity by him/herself with no assistance from a helper. 5-Set-up or Clean-up Assistance-helper sets up or cleans up; patient completes activity. [place] assists only prior to or following the activity. 4-Supervision or Touching Assistance-helper provides verbal cues and/or touching/steadying and/or contact guard assistance as patient completes activity. Assistance may be provided throughout the activity or intermittently. 3-Partial/Moderate Assistance-helper does LESS THAN HALF the effort. [place] lifts, holds or supports trunk or limbs, but provides less than half the effort. 2-Substantial/Maximal Assistance-helper does MORE THAN HALF the effort. [place] lifts or holds trunk or limbs and provides more than half the effort. 2-Jmzdhsnav-yyqebj does ALL the effort. Patient does none of the effort to complete the activity. Or, the assistance of 2 or more helpers is required for the patient to complete the activity. If activity was not attempted, code reason: 7-Patient Refused. 9-Not Applicable-not attempted and the patient did not perform the activity before the current illness, exacerbation or injury. 10-Not Attempted due to Environmental Limitations-(lack of equipment, weather restraints, etc.). 88-Not Attempted due to Medical Conditions or Safety Concerns. Lying to Sitting/Side of Bed(Q: 3 Sit to Stand (QC): 4 Chair/Rmh-pk-Tcyks Xfer(QC): 4 Weight Bearing LSO on when out of bed Gait Training Distance: 50' x 3 Walk 10 feet (QC): 4 Walk 50 ft with 2 Turns(QC): 4 Gait Assistive Device: Walker 4 Wheeled seated recovery periods due to SOA with SAO2 RA 95% Assessment Patient tolerated treatment well and is up in recliner with needs met. PT to increase activity as tolerated by patient. PT Business Supervisor Goals Business Supervisor Goals PT Business Supervisor Goals Time Frame: Jun 27, 2022 Roll Left & Right (QC): 4 (SBA) Sit to Lying (QC): 4 (SBA) Lying-Sitting on Side/Bed(QC): 4 (SBA) Sit to Stand (QC): 4 (SBA) Chair/Xhm-bc-Xlvdc Xfer(QC): 4 (SBA) Walk 10 feet (QC): 4 (SBA) Walk 50ft with 2 Turns (QC): 4 (SBA) PT Plan Treatment/Plan Treatment Plan: Continue Plan of Care Treatment Plan: Bed Mobility, Education, Functional Activity Abena, Functional Strength, Gait, Safety, Therapeutic Exercise, Transfers Treatment Duration: Jun 27, 2022 Frequency: 6 times per week Estimated Hrs Per Day: .25 hour per day Patient and/or Family Agrees t: Yes Time Time In: 1055 Time Out: 1108 DATE: Jun 22, 2022 Total Billed Treatment Time: 13 Total Billed Treatment 1 visit GT 13 min EDUAR HERRING PT Jun 22, 2022 11:52
--- NOTE | 2022-06-22 15:31 | Progress Note ---
LETTY ALEMAN 06/22/22 1531: Subjective Time Seen by a Provider: 10:00 Subjective/Events-last exam Manuel Cochran, goes by Татьяна, is a 72yo M who was admitted to the [facility] 4th floor 06/13/22 from [facility] with a chief complaint of malaise/myalgia, sore throat, and back pain. Татьяна was initially intended to be brought to the inpatient rehab unit for S/P lumbar surgery done in [place], but prior to discharge he tested positive for Covid. He was then brought into room 433 to be quarantined, and continually monitored. On talking with patient he was fatigued and oriented x3 but very frustrated, he hasn't had much education and in conversation is mildly obtuse. Multple times in conversation patient appeared to almost fall asleep and start snoring. He did not appear to be toxic, and denied any c/o SOB, CP, fevers, chills, or naseua. He remained quarantined where he had very limited mobility due to the severity of his back pain that he often rated as an 8/10, this caused him to have several instances where he wet the bed adding to his frustration, he initially had a fever despite denying any, which went down to NL on 06/15/22, his lungs continued to sound congested and for pneumonia PPx he was given Abx. Anemia also was a concern where Hgb was around 7.6, so Iron and B12 were administered. His mood gradually improved but he had frustrations with his foods temperature and would call his girlfriend Opal to help calm him down. It was planned to move him to the IRF of [facility], where he would remain in quarentine until he met his 10 day requirement, while still working with OT/PT to help alleviate pain and improve debility. After a couple days in rehab татьяна continually required further assistance in breathing, he became more complicated and fell into respiratory distress. He was then moved to ICU room 2, and placed on more intensive respiratory treatment where his O2 stats normalized. Татьяна remains uncomprehensive of the severity of his situation and says he feels better and wants to go home. Today talking with Татьяна, he was with a nurse walking around his room, he is ambulating a lot better than a week ago and is able to communicate more clearly, he appears less fatigued and more aware of whats going on. He is not on ventillation currently and says he is still fighting being short of breath but he feels like its slowly getting better. His pain is being well managed and he is eating and going to the bathroom well. He denies any new onset of symptoms, and any exacerbation of old symptoms. Review of Systems General: No Chills, No Night Sweats, No Fatigue, No Malaise; Appetite; No Other HEENT: No Head Aches, No Visual Changes, No Eye Pain, No Ear Pain, No Dysphasia, No Sinus Congestion, No Post Nasal Drip, No Sore Throat, No Other Pulmonary: Dyspnea; No Cough, No Pleuritic Chest Pain Cardiovascular: No: Chest Pain, Palpitations, Orthopnea, Paroxysmal Noc. Dyspnea, Edema, Lt Headedness, Other Gastrointestinal: No: Nausea, Vomiting, Abdominal Pain, Diarrhea, Constipation, Melena, Hematochezia, Other Genitourinary: No Dysuria, No Frequency, No Incontinence, No Hematuria, No Retention, No Other Musculoskeletal: back pain Neurological: Confusion Objective Exam Last Set of Vital Signs Vital Signs Date Time Temp Pulse Resp B/P (MAP) Pulse Ox O2 Delivery O2 Flow Rate FiO2 06/22/22 12:28 36.6 55 93 06/22/22 11:41 18 158/67 (97) Room Air 06/22/22 11:08 0.00 06/19/22 16:00 55 Capillary Refill : I&O Intake and Output 06/22/22 00:00 Intake Total 1220 ml Balance 1220 ml Intake Oral 1220 ml # Voids 4 # Urine Diapers 1 General: Alert, Oriented X3, Cooperative, No Acute Distress Neck: Supple, No JVD, No Thyromegaly, No LAD Lungs: Normal Air Movement Heart: Regular Rate, No Murmurs, Gallops, Rubs Abdomen: Normal Bowel Sounds, Soft, No Tenderness Extremities: No Clubbing, No Cyanosis, No Edema, No Tenderness/Swelling Skin: No Rashes, No Breakdown, No Significant Lesion Neuro: Normal Speech, Normal Tone, Sensation Intact Results Lab Laboratory Tests 06/21/22 16:31: Glucometer 403*H 06/21/22 20:14: Glucometer 326H 06/22/22 05:25: White Blood Count 15.1H, Red Blood Count 2.89L, Hemoglobin 8.4L, Hematocrit 26L, Mean Corpuscular Volume 89, Mean Corpuscular Hemoglobin 29, Mean Corpuscular Hemoglobin Concent 33, Red Cell Distribution Width 14.5, Platelet Count 522H, Mean Platelet Volume 10.7, Immature Granulocyte % (Auto) 3, Neutrophils (%) (Auto) 82H, Lymphocytes (%) (Auto) 7L, Monocytes (%) (Auto) 9, Eosinophils (%) (Auto) 0, Basophils (%) (Auto) 0, Neutrophils # (Auto) 12.4H, Lymphocytes # (Auto) 1.1, Monocytes # (Auto) 1.3H, Eosinophils # (Auto) 0.0, Basophils # (Auto) 0.0, Immature Granulocyte # (Auto) 0.4H, Sodium Level 134L, Potassium Level 4.7, Chloride Level 107, Carbon Dioxide Level 18L, Anion Gap 9, Blood Urea Nitrogen 69H, Creatinine 2.05H, Estimat Glomerular Filtration Rate 34, BUN/Creatinine Ratio 34, Glucose Level 213H, Calcium Level 7.8L, Corrected Calcium 8.8, Magnesium Level 1.6, Total Bilirubin 0.3, Aspartate Amino Transf (AST/SGOT) 14, Alanine Aminotransferase (ALT/SGPT) 13, Alkaline Phosphatase 68, Total Protein 6.1L, Albumin 2.8L 06/22/22 11:26: Glucometer 279H Microbiology 06/18/22 MRSA Screen - Final, Complete MRSA not isolated Assessment/Plan Assessment/Plan Assess & Plan/Chief Complaint Assessment: Acute respiratory failure requiring BiPAP and Vapotherm now on 1 L and moving to fourth floor now much improved COVID-pneumonia Bacterial pneumonia Chronic kidney disease from diabetic nephropathy Low vision due to diabetic retinopathy Anemia requiring IV iron infusions Intellectual delay lifelong Atrial fibrillation Peripheral vascular disease Recent lumbar spine surgery requiring inpatient rehab Plan: ICU care completed moving to fourth Vapotherm discontinued BiPAP no longer necessary Anticoagulation decreased dose due to Paxlovid NATHALIA ENNIS DO 06/23/22 0531: Subjective Date Seen by a Provider: Jun 22, 2022 Assessment/Plan Assessment/Plan Assess & Plan/Chief Complaint Much improved status Continue PT and OT [facility] swing bed? LETTY ALEMAN Jun 22, 2022 15:31 NATHALIA ENNIS DO Jun 23, 2022 05:31
[2022-06-22] MEDS: RIVAROXABAN 15 MG TABLET (XARELTO) PO SCH (17:26)
[2022-06-22] MEDS ORDERED: RT-ALBUTEROL HFA 8.5 GM INHALER IH PRN (20:00)
[2022-06-22] MEDS: LATANOPROST 0.005% (XALATAN) OPHTH SOLN 2.5 ML OU SCH (21:06)
[2022-06-22] MEDS: inSUlin (REGULAR) HUMAN 1 UNIT/0.01 ML (CHARGE PER UNIT) SC PRN (22:15)
[2022-06-23] VITALS (7 sets, daily range): BP systolic 137–168; BP diastolic 65–78
[2022-06-23 05:05] LABS: BASOPHILS % (AUTO) 0 % (0-10); EOSINOPHILS # (AUTO) 0.1 10^3/uL (0.0-0.3); EOSINOPHILS % (AUTO) 1 % (0-10); HEMATOCRIT 25 % (40-54); HEMOGLOBIN 8.1 g/dL (13.3-17.7); LYMPHOCYTES # (AUTO) 1.6 10^3/uL (1.0-4.0); LYMPHOCYTES % (AUTO) 12 % (12-44); MEAN CORPUSCULAR HEMOGLOBIN 29 pg (25-34); MEAN CORPUSCULAR HGB CONC 32 g/dL (32-36); MEAN CORPUSCULAR VOLUME 89 fL (80-99); MEAN PLATELET VOLUME 10.4 fL (9.0-12.2); MONOCYTES # (AUTO) 1.3 10^3/uL (0.0-1.0); MONOCYTES % (AUTO) 9 % (0-12); NEUTROPHILS # (AUTO) 10.1 10^3/uL (1.8-7.8); NEUTROPHILS % (AUTO) 75 % (42-75); PLATELET COUNT 497 10^3/uL (130-400); WHITE BLOOD COUNT 13.6 10^3/uL (4.3-11.0)
[2022-06-23] MEDS: DOXYCYCLINE 100 MG (VIBRAMYCIN) TABLET PO SCH ×2 (05:15→16:48)
[2022-06-23] MEDS: CYANOCOBALAMIN 1,000 MCG (VITAMIN B-12) TABLET PO SCH (05:15)
[2022-06-23] MEDS: CATHETER FLUSH 10 ML SYR IVP SCH ×3 (05:15→19:55)
[2022-06-23] MEDS: PANTOPRAZOLE 40 MG (PROTONIX) TAB PO SCH ×2 (05:15→16:48)
[2022-06-23 05:20] LABS: ALBUMIN 2.7 GM/DL (3.2-4.5); POTASSIUM 4.5 MMOL/L (3.6-5.0)
[2022-06-23 05:21] LABS: CALCIUM 7.8 MG/DL (8.5-10.1)
[2022-06-23 05:22] LABS: TOTAL PROTEIN 5.7 GM/DL (6.4-8.2)
[2022-06-23 05:24] LABS: BILIRUBIN,TOTAL 0.3 MG/DL (0.1-1.0)
[2022-06-23 05:26] LABS: CREATININE SERUM 1.86 MG/DL (0.60-1.30)
[2022-06-23] MEDS: inSUlin ASPART (NovoLOG) 1 UNIT/0.01 ML (CHARGE PER UNIT) SC SCH ×4 (05:28→20:44)
[2022-06-23 05:29] LABS: MAGNESIUM 1.6 MG/DL (1.6-2.4)
--- NOTE | 2022-06-23 06:30 | Progress Note ---
Subjective Date Seen by a Provider: Jun 23, 2022 Time Seen by a Provider: 11:00 Subjective/Events-last exam Patient doing a lot better Wants to go home Swing bed may be an option at [facility] Labs reviewed Blood sugars improved Discontinue the steroids 2 days ago Review of Systems General: Fatigue, Malaise Pulmonary: Dyspnea Objective Exam Last Set of Vital Signs Vital Signs Date Time Temp Pulse Resp B/P (MAP) Pulse Ox O2 Delivery O2 Flow Rate FiO2 06/23/22 03:55 95 Nasal Cannula 2.00 06/23/22 03:53 36.6 60 20 153/78 (103) 06/19/22 16:00 55 Capillary Refill : I&O Intake and Output 06/23/22 00:00 Intake Total 2260 ml Balance 2260 ml Intake Oral 2260 ml # Voids 6 General: Alert, Oriented X3, Cooperative, No Acute Distress Lungs: Clear to Auscultation, Normal Air Movement Heart: Regular Rate, Normal S1, Normal S2, No Murmurs Psych/Mental Status: Mental Status NL, Mood NL Results Lab Laboratory Tests 06/22/22 11:26: Glucometer 279H 06/22/22 16:10: Glucometer 242H 06/22/22 20:48: Glucometer 391H 06/23/22 04:55: White Blood Count 13.6H, Red Blood Count 2.84L, Hemoglobin 8.1L, Hematocrit 25L, Mean Corpuscular Volume 89, Mean Corpuscular Hemoglobin 29, Mean Corpuscular Hemoglobin Concent 32, Red Cell Distribution Width 15.1H, Platelet Count 497H, Mean Platelet Volume 10.4, Immature Granulocyte % (Auto) 4, Neutrophils (%) (Auto) 75, Lymphocytes (%) (Auto) 12, Monocytes (%) (Auto) 9, Eosinophils (%) (Auto) 1, Basophils (%) (Auto) 0, Neutrophils # (Auto) 10.1H, Lymphocytes # (Auto) 1.6, Monocytes # (Auto) 1.3H, Eosinophils # (Auto) 0.1, Basophils # (Auto) 0.0, Immature Granulocyte # (Auto) 0.5H, Sodium Level 136, Potassium Level 4.5, Chloride Level 108H, Carbon Dioxide Level 19L, Anion Gap 9, Blood Urea Nitrogen 71H, Creatinine 1.86H, Estimat Glomerular Filtration Rate 38, BUN/Creatinine Ratio 38, Glucose Level 168H, Calcium Level 7.8L, Corrected Calcium 8.8, Magnesium Level 1.6, Total Bilirubin 0.3, Aspartate Amino Transf (AST/SGOT) 11, Alanine Aminotransferase (ALT/SGPT) 11, Alkaline Phosphatase 65, Total Protein 5.7L, Albumin 2.7L Microbiology 06/18/22 MRSA Screen - Final, Complete MRSA not isolated Assessment/Plan Assessment/Plan Assess & Plan/Chief Complaint Much improved status Continue PT and OT [facility] swing bed? Assessment: Acute respiratory failure requiring BiPAP and Vapotherm now on 1 L and weaning off COVID-pneumonia Bacterial pneumonia Chronic kidney disease from diabetic nephropathy Low vision due to diabetic retinopathy Anemia requiring IV iron infusions Intellectual delay lifelong Atrial fibrillation Peripheral vascular disease Recent lumbar spine surgery requiring inpatient rehab but failed due to worsening respiratory status Plan: Continue therapy Vapotherm discontinued BiPAP no longer necessary Anticoagulation NATHALIA ENNIS DO Jun 23, 2022 06:30
[2022-06-23] MEDS: CLOPIDOGREL 75 MG (PLAVIX) TABLET PO SCH (09:03)
[2022-06-23] MEDS: SENNA W/DOCUSATE (SENOKOT S) TABLET PO SCH ×2 (09:03→19:55)
[2022-06-23] MEDS: SENNOSIDES 8.6 MG (SENOKOT) TAB PO SCH ×2 (09:03→19:55)
[2022-06-23] MEDS: GABAPENTIN 300 MG (NEURONTIN) CAP PO SCH ×2 (09:04→19:55)
[2022-06-23] MEDS: BRIMONIDINE 0.2% (ALPHAGAN) OPHTH SOLN 5 ML BTL OD SCH ×2 (09:04→19:56)
[2022-06-23] MEDS: SODIUM BICARBONATE 650 MG TABLET PO SCH ×2 (09:04→19:55)
[2022-06-23] MEDS: DORZOLAMIDE/TIMOLOL (COSOPT) 2-0.68% 10 ML BTL OU SCH ×2 (09:04→19:56)
[2022-06-23] MEDS: amLODIPine 5 MG (NORVASC) TAB PO SCH (09:04)
[2022-06-23] MEDS: guaiFENesin (MUCINEX) 600 MG TAB PO SCH ×2 (12:20→19:55)
--- NOTE | 2022-06-23 14:33 | Physical Therapy Progress Note ---
Therapy Progress Note Patient refused therapy stating that he does not feel well. NEENA OLIVEROS PT Jun 23, 2022 14:33
[2022-06-23] MEDS: inSUlin (REGULAR) HUMAN 1 UNIT/0.01 ML (CHARGE PER UNIT) SC PRN (16:48)
[2022-06-23] MEDS: RIVAROXABAN 15 MG TABLET (XARELTO) PO SCH (16:48)
[2022-06-23] MEDS: LATANOPROST 0.005% (XALATAN) OPHTH SOLN 2.5 ML OU SCH (19:55)
[2022-06-24] MEDS: DOXYCYCLINE 100 MG (VIBRAMYCIN) TABLET PO SCH ×2 (05:33→16:14)
[2022-06-24] MEDS: CYANOCOBALAMIN 1,000 MCG (VITAMIN B-12) TABLET PO SCH ×2 (05:33→10:43)
[2022-06-24] MEDS: inSUlin ASPART (NovoLOG) 1 UNIT/0.01 ML (CHARGE PER UNIT) SC SCH ×4 (05:33→20:35)
[2022-06-24] MEDS: PANTOPRAZOLE 40 MG (PROTONIX) TAB PO SCH ×2 (05:34→10:45)
[2022-06-24] MEDS: CATHETER FLUSH 10 ML SYR IVP SCH ×3 (05:36→19:50)
[2022-06-24 05:51] LABS: BASOPHILS % (AUTO) 0 % (0-10); EOSINOPHILS # (AUTO) 0.3 10^3/uL (0.0-0.3); EOSINOPHILS % (AUTO) 2 % (0-10); HEMATOCRIT 27 % (40-54); HEMOGLOBIN 8.6 g/dL (13.3-17.7); LYMPHOCYTES # (AUTO) 1.3 10^3/uL (1.0-4.0); LYMPHOCYTES % (AUTO) 8 % (12-44); MEAN CORPUSCULAR HEMOGLOBIN 29 pg (25-34); MEAN CORPUSCULAR HGB CONC 32 g/dL (32-36); MEAN CORPUSCULAR VOLUME 91 fL (80-99); MEAN PLATELET VOLUME 10.8 fL (9.0-12.2); MONOCYTES # (AUTO) 1.4 10^3/uL (0.0-1.0); MONOCYTES % (AUTO) 8 % (0-12); NEUTROPHILS # (AUTO) 13.7 10^3/uL (1.8-7.8); NEUTROPHILS % (AUTO) 81 % (42-75); PLATELET COUNT 508 10^3/uL (130-400); WHITE BLOOD COUNT 16.9 10^3/uL (4.3-11.0)
[2022-06-24 06:03] LABS: ALBUMIN 2.7 GM/DL (3.2-4.5)
[2022-06-24 06:04] LABS: POTASSIUM 4.3 MMOL/L (3.6-5.0)
[2022-06-24 06:05] LABS: CALCIUM 7.9 MG/DL (8.5-10.1)
[2022-06-24 06:06] LABS: TOTAL PROTEIN 5.6 GM/DL (6.4-8.2)
[2022-06-24 06:08] LABS: BILIRUBIN,TOTAL 0.3 MG/DL (0.1-1.0)
[2022-06-24 06:10] LABS: CREATININE SERUM 1.67 MG/DL (0.60-1.30)
[2022-06-24 06:12] LABS: MAGNESIUM 1.5 MG/DL (1.6-2.4)
--- NOTE | 2022-06-24 06:37 | Progress Note ---
Subjective Date Seen by a Provider: Jun 24, 2022 Time Seen by a Provider: 11:00 Subjective/Events-last exam Patient doing well Wants to go to [facility] swing bed tomorrow Moving around pretty well Pain is pretty well controlled Bowels are moving Review of Systems General: Fatigue, Malaise Objective Exam Last Set of Vital Signs Vital Signs Date Time Temp Pulse Resp B/P (MAP) Pulse Ox O2 Delivery O2 Flow Rate FiO2 06/24/22 03:20 Nasal Cannula 2.00 06/23/22 23:22 36.4 60 18 152/76 (101) 97 06/19/22 16:00 55 Capillary Refill : I&O Intake and Output 06/24/22 00:00 Intake Total 2880 ml Output Total 200 ml Balance 2680 ml Intake Oral 2880 ml Output Urine Total 200 ml # Voids 1 # Urine Diapers 3 General: Alert, Oriented X3, Cooperative, No Acute Distress Lungs: Clear to Auscultation, Normal Air Movement Heart: Regular Rate, Normal S1, Normal S2, No Murmurs Psych/Mental Status: Mental Status NL, Mood NL Results Lab Laboratory Tests 06/23/22 11:14: Glucometer 222H 06/23/22 15:53: Glucometer 285H 06/23/22 20:34: Glucometer 110 06/24/22 04:46: Glucometer 184H 06/24/22 05:35: White Blood Count 16.9H, Red Blood Count 2.99L, Hemoglobin 8.6L, Hematocrit 27L, Mean Corpuscular Volume 91, Mean Corpuscular Hemoglobin 29, Mean Corpuscular Hemoglobin Concent 32, Red Cell Distribution Width 15.6H, Platelet Count 508H, Mean Platelet Volume 10.8, Immature Granulocyte % (Auto) 2, Neutrophils (%) (Auto) 81H, Lymphocytes (%) (Auto) 8L, Monocytes (%) (Auto) 8, Eosinophils (%) (Auto) 2, Basophils (%) (Auto) 0, Neutrophils # (Auto) 13.7H, Lymphocytes # (Auto) 1.3, Monocytes # (Auto) 1.4H, Eosinophils # (Auto) 0.3, Basophils # (Auto) 0.0, Immature Granulocyte # (Auto) 0.3H, Sodium Level 138, Potassium Level 4.3, Chloride Level 109H, Carbon Dioxide Level 21, Anion Gap 8, Blood Urea Nitrogen 57H, Creatinine 1.67H, Estimat Glomerular Filtration Rate 44, BUN/Creatinine Ratio 34, Glucose Level 264H, Calcium Level 7.9L, Corrected Calcium 8.9, Magnesium Level 1.5L, Total Bilirubin 0.3, Aspartate Amino Transf (AST/SGOT) 13, Alanine Aminotransferase (ALT/SGPT) 11, Alkaline Phosphatase 69, Total Protein 5.6L, Albumin 2.7L Microbiology 06/18/22 MRSA Screen - Final, Complete MRSA not isolated Assessment/Plan Assessment/Plan Assess & Plan/Chief Complaint Much improved status Continue PT and OT [facility] swing bed? Assessment: Acute respiratory failure requiring BiPAP and Vapotherm now on 1 L and weaning off COVID-pneumonia Bacterial pneumonia Chronic kidney disease from diabetic nephropathy Low vision due to diabetic retinopathy Anemia requiring IV iron infusions Intellectual delay lifelong Atrial fibrillation Peripheral vascular disease Recent lumbar spine surgery requiring inpatient rehab but failed due to worsening respiratory status Plan: Continue therapy Vapotherm discontinued BiPAP no longer necessary Anticoagulation NATHALIA ENNIS DO Jun 24, 2022 06:37
[2022-06-24 08:11] VITALS: BP 151/71
[2022-06-24] MEDS: SENNOSIDES 8.6 MG (SENOKOT) TAB PO SCH ×2 (10:43→19:49)
[2022-06-24] MEDS: SODIUM BICARBONATE 650 MG TABLET PO SCH ×2 (10:43→19:49)
[2022-06-24] MEDS: IRON SUCROSE 200 MG/10 ML (VENOFER) VIAL IV SCH (10:43)
[2022-06-24] MEDS: SENNA W/DOCUSATE (SENOKOT S) TABLET PO SCH ×2 (10:43→19:53)
[2022-06-24] MEDS: guaiFENesin (MUCINEX) 600 MG TAB PO SCH ×2 (10:44→19:49)
[2022-06-24] MEDS: BRIMONIDINE 0.2% (ALPHAGAN) OPHTH SOLN 5 ML BTL OD SCH ×2 (10:44→19:50)
[2022-06-24] MEDS: CLOPIDOGREL 75 MG (PLAVIX) TABLET PO SCH (10:44)
[2022-06-24] MEDS: DORZOLAMIDE/TIMOLOL (COSOPT) 2-0.68% 10 ML BTL OU SCH ×2 (10:44→19:50)
[2022-06-24] MEDS: amLODIPine 5 MG (NORVASC) TAB PO SCH (10:45)
[2022-06-24] MEDS: GABAPENTIN 300 MG (NEURONTIN) CAP PO SCH ×2 (10:45→19:49)
[2022-06-24] MEDS: inSUlin (REGULAR) HUMAN 1 UNIT/0.01 ML (CHARGE PER UNIT) SC PRN (10:47)
[2022-06-24 15:22] VITALS: BP 177/80
[2022-06-24] MEDS: RIVAROXABAN 15 MG TABLET (XARELTO) PO SCH (16:14)
[2022-06-24] MEDS: LATANOPROST 0.005% (XALATAN) OPHTH SOLN 2.5 ML OU SCH (19:50)
[2022-06-24 23:16] VITALS: BP 159/73
[2022-06-25] MEDS: CATHETER FLUSH 10 ML SYR IVP SCH (05:52)
[2022-06-25] MEDS: PANTOPRAZOLE 40 MG (PROTONIX) TAB PO SCH (05:53)
[2022-06-25] MEDS: CYANOCOBALAMIN 1,000 MCG (VITAMIN B-12) TABLET PO SCH (05:53)
[2022-06-25] MEDS: inSUlin ASPART (NovoLOG) 1 UNIT/0.01 ML (CHARGE PER UNIT) SC SCH ×2 (05:53→11:29)
[2022-06-25] MEDS: DOXYCYCLINE 100 MG (VIBRAMYCIN) TABLET PO SCH (05:54)
[2022-06-25] MEDS ORDERED: CYAN-41 PO (05:56)
[2022-06-25] MEDS ORDERED: CLOP75TA28 PO (05:56)
[2022-06-25] MEDS ORDERED: SENN1TAB76 PO (05:56)
[2022-06-25] MEDS ORDERED: INSU100I29 SQ (05:56)
[2022-06-25] MEDS ORDERED: GUAI600T43 PO (05:56)
[2022-06-25] MEDS ORDERED: OXC5T PO (05:56)
[2022-06-25] MEDS ORDERED: INSU100V16 SC (05:56)
[2022-06-25] MEDS ORDERED: AMLO-250 PO (05:56)
[2022-06-25] MEDS ORDERED: RIVA15TA2 PO (05:56)
[2022-06-25] MEDS ORDERED: NF-SODBICA PO (05:56)
--- NOTE | 2022-06-25 05:56 | Discharge Inst-Skilled Nursing ---
Discharge Inst-Skilled NF Reconcile Patient Problems Problems Reviewed?: Yes Chief Complaint CC: Respiratory Failure HPI:Manuel Cochran, goes by Татьяна, is a 72yo M who was admitted to the [facility] 4th floor 06/13/22 from [facility] with a chief complaint of malaise/myalgia, sore throat, and back pain. Татьяна was initially intended to be brought to the inpatient rehab unit for S/P lumbar surgery done in [place], but prior to discharge he tested positive for Covid. He was then brought into room 433 to be quarantined, and continually monitored. On talking with patient he was fatigued and oriented x3 but very frustrated, he hasn't had much education and in conversation is mildly obtuse. Multple times in conversation patient appeared to almost fall asleep and start snoring. He did not appear to be toxic, and denied any c/o SOB, CP, fevers, chills, or naseua. He remained quarantined where he had very limited mobility due to the severity of his back pain that he often rated as an 8/10, this caused him to have several instances where he wet the bed adding to his frustration, he initially had a fever despite denying any, which went down to NL on 06/15/22, his lungs continued to sound congested and for pneumonia PPx he was given Abx. Anemia also was a concern where Hgb was around 7.6, so Iron and B12 were administered. His mood gradually improved but he had frustrations with his foods temperature and would call his girlfriend Opal to help calm him down. It was planned to move him to the IRF of [facility], where he would remain in quarentine until he met his 10 day requirement, while still working with OT/PT to help alleviate pain and improve debility. After a couple days in rehab татьяна continually required further assistance in breathing, he became more complicated and fell into respiratory distress. He was then moved to ICU room 2, and placed on more intensive respiratory treatment where his O2 stats normalized. Татьяна remains uncomprehensive of the severity of his situation and says he feels better and wants to go home. PMH: Covid-PNA Coronary Artery Disease, Heart Attack, High Cholesterol, Hypertension Sexually Transmitted Disease: No HIV/AIDS: No Prostate Problems Gastroesophageal Reflux Diabetes, Non-Insulin dep Loss of Vision: diabetic retinopathy Depression Blood Disorders: No Adverse Reaction/Blood Tranf: No PSH: coronary stent, orthopedic(back surgery) All: No Known Drug Allergies (Verified , 01/05/08) MEDs: Aspirin 81 Mg Tab.chew, 81 MG PO DAILY, (Reported) Atorvastatin Calcium 20 Mg Tablet, 20 MG PO DAILY, (Reported) Brimonidine Tartrate 0.2 % Btl, 1 DROP OD BID, (Reported) Diltiazem HCl 300 Mg Cap.er.24h, 300 MG PO DAILY, (Reported) Dorzolamide HCl/Timolol Maleat 22.3 Mg-6.8 Mg/Ml Drops, 1 DROPS OU BID, (Reported) Furosemide 40 Mg Tablet, 40 MG PO DAILY, (Reported) Gabapentin 300 Mg Capsule, 300 MG PO BID, (Reported) Glyburide 5 Mg Tablet, 10 MG PO BID WITH MEALS, (Reported) Insulin Detemir 100 Unit/Ml (3 Ml) Insuln.pen, 30 UNIT SQ DAILY PRN for HYPERGLYCEMIA, (Reported) Latanoprost/Pf 0.005 % Drops, 1 DROP OU HS, (Reported) Losartan Potassium 100 Mg Tablet, 100 MG PO DAILY, (Reported) Metformin HCl 1,000 Mg Tablet, 1,000 MG PO BID, (Reported) Pantoprazole Sodium 40 Mg Tablet.dr, 40 MG PO BID, (Reported) Rivaroxaban 20 Mg Tablet, 20 MG PO 1800 W/SUPPER, (Reported) Sitagliptin Phosphate 100 Mg Tablet, 100 MG PO DAILY, (Reported) SH: Not , no kids, has a girlfriend named Opal, and is on disability. 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 very little education. FH:Cardiovascular disease FATHER BROTHER BROTHER Diabetes mellitus MOTHER ROS: Constitutional: see HPI, malaise, weakness EENTM: reports pain substernally up towards throat Respiratory: severe SOB without ventillative assistance, cough Cardiovascular: no symptoms reported Gastrointestinal: no symptoms reported Genitourinary: no symptoms reported Musculoskeletal: back pain, muscle pain Skin: no symptoms reported Psychiatric/Neurological: No Symptoms Reported Exams: V/S: T(36.0) HR(60) RR(17) BP(165/67) SpO2(94, high flow nasal cannula(4.0)) General Appearance: No Apparent Distress, WD/WN, Chronically ill, Obese HEENT: PERRL/EOMI, Normal ENT Inspection, Pharynx Normal Neck: Full Range of Motion, Normal Inspection, Non Tender, Supple Respiratory: Chest Non Tender, Lungs congested, Coarse Breath Sounds, No Accessory Muscle Use, Respiratory Distress Cardiovascular: Regular Rate, Rhythm, No Edema, No Gallop, No JVD, No Murmur, Normal Peripheral Pulses Gastrointestinal: Normal Bowel Sounds, No Organomegaly, No Pulsatile Mass, Non Tender, Soft Back: Normal Inspection, CVA Tenderness (L), CVA Tenderness (R), Decreased Range of Motion, Muscle Spasm, Vertebral Tenderness Extremity: Normal Capillary Refill, Normal Inspection, Normal Range of Motion (limited ), Non Tender, No Calf Tenderness, No Pedal Edema Neurologic/Psychiatric: Alert, Oriented x3, student support advisor II-XII Norm as Tested, Abnormal Gait, Depressed Affect, Motor Weakness Skin: Normal Color, Warm/Dry Lymphatic: No Adenopathy Labs: Hgb(8.5) Hct(27) Glucose(rcd=450, kpcf=145) A: Slow recovery from lumbar spine surgery COVID infection- isolation until 06/22/22 s/p bacterial PNA Low vision from DM retinopathy HTN post op Anemia DARRICK on CKD Stage III HLP Pacemaker PAF OAC restart 06/17/[address] Fall to prevent spinal hematoma Post op constipation DM w/ hyperglycemia Hypoxia Hypocapnic Hyponatremia P: Monitor sugars Monitor reat BM regimen PT OT Isolation until Saturday Restart Xarelto 06/17/22 Agressive ventilation therapy LETTY ALEMAN Jun 19, 2022 14:16 Patient Instructions Patient Problems: COVID L spine surgery Consult/Follow Up/Orders Follow Up Appt.: PCP Skilled NF Admit to: [facility] Certification (SNF) I certify that SNF services are required to be given on an inpatient basis because of the above named patient's need for fdc care on a continuing basis for the conditions(s) for which he/she was receiving inpatient hospital services prior to his/her transfer to the SNF. Half-Way Facility Order: Nursing Services, Wire Sawyer-Evaluate & Treat, Physical Therapy-Evaluate & Treat Oxygen Delivery Method: High Flow N/C Discharge Diet: ADA Diet Resuscitation Status: Full Code New & Resume Previous Orders New Medications: Amlodipine Besylate (Amlodipine Besylate) 5 Mg Tablet 10 MG PO DAILY for 30 Days, TAB Clopidogrel Bisulfate (Clopidogrel) 75 Mg Tablet 75 MG PO DAILY for 30 Days, TAB Cyanocobalamin (Vitamin B-12) (Vitamin B-12) 1,000 Mcg Tablet 1000 MCG PO DAILY@0700 for 30 Days, TAB Guaifenesin (Mucinex) 600 Mg Tab.er.12h 600 MG PO BID for 30 Days, TAB Insulin Aspart (Novolog) 100 Unit/Ml Susp 0 UNIT SC ACHS for 30 Days, ML ssi a Oxycodone Hcl (Oxyir Tablet) 5 Mg Tab 5 MG PO Q4HR PRN for PAIN-SEE DOSE INSTRUCTIONS for 30 Days, TAB Rivaroxaban (Xarelto Tablet) 15 Mg Tablet 15 MG PO DAILY@1700 for 30 Days, TAB Sennosides/Docusate Sodium (Stool Softener-Laxative Tablet) 8.6 Mg-50 Mg Tablet 1 EA PO BID for 30 Days, TAB Sodium Bicarbonate (Sodium Bicarbonate) 650 Mg Tablet 1300 MG PO BID for 30 Days, TAB Changed Medications: Insulin Detemir (Levemir Flextouch) 100 Unit/Ml (3 Ml) Insuln.pen 10 UNIT SQ BID PRN for HYPERGLYCEMIA for 30 Days, EA (Changed from: 30 UNIT; DAILY) Continued Medications: Atorvastatin Calcium (Atorvastatin Calcium) 20 Mg Tablet 20 MG PO DAILY, TAB Brimonidine Tartrate (Brimonidine Tartrate) 0.2 % Btl 1 DROP OD BID, EA Diltiazem HCl (Diltiazem 24Hr Cd) 300 Mg Cap.er.24h 300 MG PO DAILY, CAP Dorzolamide HCl/Timolol Maleat (Cosopt Eye Drops) 22.3 Mg-6.8 Mg/Ml Drops 1 DROPS OU BID, DROPS Gabapentin (Neurontin) 300 Mg Capsule 300 MG PO BID, CAP Latanoprost/Pf (Latanoprost 0.005% Eye Drop) 0.005 % Drops 1 DROP OU HS, DROPS Pantoprazole Sodium (Pantoprazole Sodium) 40 Mg Tablet.dr 40 MG PO BID, TAB Discontinued Medications: Aspirin (Aspirin) 81 Mg Tab.chew 81 MG PO DAILY, TAB Furosemide (Furosemide) 40 Mg Tablet 40 MG PO DAILY, TAB Glyburide (Glyburide) 5 Mg Tablet 10 MG PO BID WITH MEALS, TAB Losartan Potassium (Losartan Potassium) 100 Mg Tablet 100 MG PO DAILY, TAB Metformin HCl (Metformin HCl) 1,000 Mg Tablet 1000 MG PO BID, TAB Rivaroxaban (Xarelto) 20 Mg Tablet 20 MG PO 1800 W/SUPPER, TAB Sitagliptin Phosphate (Januvia) 100 Mg Tablet 100 MG PO DAILY, TAB Sherine Ennis Jun 25, 2022 05:56 SHERINE ENNIS DO Jun 25, 2022 05:56
--- NOTE | 2022-06-25 05:57 | Discharge Summary ---
Diagnosis/Chief Complaint Date of Admission Jun 18, 2022 at 20:37 Date of Discharge Discharge Date: Jun 25, 2022 Discharge Diagnosis Assessment: Acute respiratory failure requiring BiPAP and Vapotherm now on 1 L and weaning off COVID-pneumonia Bacterial pneumonia Chronic kidney disease from diabetic nephropathy Low vision due to diabetic retinopathy Anemia requiring IV iron infusions Intellectual delay lifelong Atrial fibrillation Peripheral vascular disease Recent lumbar spine surgery requiring inpatient rehab but failed due to worseni ng respiratory status Discharge Summary Discharge Physical Examination Allergies: Coded Allergies: No Known Drug Allergies (Verified , 01/05/08) Vitals & I&Os Vital Signs Date Time Temp Pulse Resp B/P (MAP) Pulse Ox O2 Delivery O2 Flow Rate FiO2 06/25/22 14:31 36.6 59 18 161/76 99 Nasal Cannula 2.00 General Appearance: Alert, Oriented X3, Cooperative Respiratory: Clear to Auscultation Cardiovascular: Regular Rate Psych/Mental Status: Mental Status NL Hospital Course Was the Problem List Reviewed?: Yes Hospital Course: Manuel Cochran, goes by Татьяна, is a 72yo M who was admitted to the [facility] 4th floor 06/13/22 from [facility] with a chief complaint of malaise/myalgia, sore throat, and back pain. Татьяна was initially intended to be brought to the inpatient rehab unit for S/P lumbar surgery done in [place], but prior to discharge he tested positive for Covid. He was then brought into room 433 to be quarantined, and continually monitored. On talking with patient he was fatigued and oriented x3 but very frustrated, he hasn't had much education and in conversation was mildly obtuse. Multiple times in conversation patient appeared to almost fall asleep and start snoring. He did not appear to be toxic, and denied any c/o SOB, CP, fevers, chills, or naseua. He remained quarantined where he had very limited mobility due to the severity of his back pain that he often rated as an 8/10, this caused him to have several instances w here he wet the bed adding to his frustration, he initially had a fever despite denying any, which went down to NL on 06/15/22, his lungs continued to sound congested and for pneumonia PPx he was given Abx. Anemia also was a concern where Hgb was around 7.6, so Iron and B12 were administered. His mood gradually improved but he had frustrations with his foods temperature and would call his girlfriend Opal to help calm him down. It was planned to move him to the [facility], where he would remain in quarentine until he met his 10 day requirement, while still working with OT/PT to help alleviate pain and improve debility. After a couple days in rehab татьяна continually required further assistance in breathing, he became more complicated and fell into respiratory distress. He was then moved to ICU room 2, and placed on more intensive respiratory treatment where his O2 stats normalized. After stabilizing the pt was then taken back to the fourth floor where he was placed in isolation in room 422, he recovered well from his respiratory ailments but remained a complicated case do to his own cognitive inabilities, his compliance will remain an issue throughtout his recovery, but he has requested he be transfered to [place] and brought to a swing-bed at their hospital. He is scheduled for DC today 06/25/22 where he will be removed from his isolation and will finish his recovery in [place]. [facility] (last 24 hrs) Laboratory Tests 06/18/22 23:35: White Blood Count 10.3, Red Blood Count 2.69L, Hemoglobin 7.6L, Hematocrit 24L, Mean Corpuscular Volume 90, Mean Corpuscular Hemoglobin 28, Mean Corpuscular Hemoglobin Concent 31L, Red Cell Distribution Width 14.3, Platelet Count 311, Mean Platelet Volume 11.5, Immature Granulocyte % (Auto) 1, Neutrophils (%) (Auto) 77H, Lymphocytes (%) (Auto) 10L, Monocytes (%) (Auto) 11, Eosinophils (%) (Auto) 1, Basophils (%) (Auto) 0, Neutrophils # (Auto) 7.9H, Lymphocytes # (Auto) 1.0, Monocytes # (Auto) 1.1H, Eosinophils # (Auto) 0.1, Basophils # (Auto) 0.0, Immature Granulocyte # (Auto) 0.1, Sodium Level 135, Potassium Level 4.7, Chloride Level 109H, Carbon Dioxide Level 18L, Anion Gap 8, Blood Urea Nitrogen 51H, Creatinine 1.84H, Estimat Glomerular Filtration Rate 39, BUN/Creatinine Ratio 28, Glucose Level 204H, Calcium Level 8.1L, Corrected Calcium 9.1, Total Bilirubin 0.3, Aspartate Amino Transf (AST/SGOT) 17, Alanine Aminotransferase (ALT/SGPT) 15, Alkaline Phosphatase 64, B-Type Natriuretic Peptide 720.6H, Total Protein 6.0L, Albumin 2.7L 06/19/22 06:30: White Blood Count 11.0, Red Blood Count 2.97L, Hemoglobin 8.5L, Hematocrit 27L, Mean Corpuscular Volume 91, Mean Corpuscular Hemoglobin 29, Mean Corpuscular Hemoglobin Concent 32, Red Cell Distribution Width 14.1, Platelet Count 369, Mean Platelet Volume 11.3, Immature Granulocyte % (Auto) 1, Neutrophils (%) (Auto) 92H, Lymphocytes (%) (Auto) 5L, Monocytes (%) (Auto) 2, Eosinophils (%) (Auto) 0, Basophils (%) (Auto) 0, Neutrophils # (Auto) 10.1H, Lymphocytes # (Auto) 0.5L, Monocytes # (Auto) 0.2, Eosinophils # (Auto) 0.0, Basophils # (Auto) 0.0, Immature Granulocyte # (Auto) 0.2H, Sodium Level 134L, Potassium Level 5.0, Chloride Level 109H, Carbon Dioxide Level 17L, Anion Gap 8, Blood Urea Nitrogen 50H, Creatinine 1.79H, Estimat Glomerular Filtration Rate 40, BU N/Creatinine Ratio 28, Glucose Level 214H, Calcium Level 8.3L, Corrected Calcium 9.2, Total Bilirubin 0.3, Aspartate Amino Transf (AST/SGOT) 17, Alanine Aminotransferase (ALT/SGPT) 16, Alkaline Phosphatase 71, Total Protein 6.7, Albumin 2.9L, Phosphorus Level 3.8, Magnesium Level 1.6 06/19/22 06:34: Glucometer 197H 06/19/22 10:39: Glucometer 321H 06/19/22 16:11: Glucometer 424*H 06/19/22 19:40: Glucometer 418*H 06/20/22 03:24: Blood Gas Puncture Site R RAD, Blood Gas Patient Temperature 36.5, Arterial Blood pH 7.32*L, Arterial Blood Partial Pressure CO2 36, Arterial Blood Partial Pressure O2 39*L, Arterial Blood HCO3 18L, Arterial Blood Total CO2 19.6L, Arterial Blood Oxygen Saturation 63L, Arterial Blood Base Excess -6.6L, Carlo Test YES-POS, Blood Gas Ventilator Setting NO, Blood Gas Inspired Oxygen 4L 06/20/22 04:20: White Blood Count 13.2H, Red Blood Count 2.83L, Hemoglobin 8.2L, Hematocrit 25L, Mean Corpuscular Volume 88, Mean Corpuscular Hemoglobin 29, Mean Corpuscular Hemoglobin Concent 33, Red Cell Distribution Width 14.2, Platelet Count 451H, Mean Platelet Volume 11.5, Immature Granulocyte % (Auto) 2, Neutrophils (%) (Auto) 82H, Lymphocytes (%) (Auto) 7L, Monocytes (%) (Auto) 9, Eosinophils (%) (Auto) 0, Basophils (%) (Auto) 0, Neutrophils # (Auto) 10.9H, Lymphocytes # (Auto) 0.9L, Monocytes # (Auto) 1.1H, Eosinophils # (Auto) 0.0, Basophils # (Auto) 0.0, Immature Granulocyte # (Auto) 0.3H, Percent Immature Platelet Fraction 3.1, Sodium Level 134L, Potassium Level 5.2H, Chloride Level 109H, Carbon Dioxide Level 14L, Anion Gap 11, Blood Urea Nitrogen 60H, Creatinine 1.99H, Estimat Glomerular Filtration Rate 35, BUN/Creatinine Ratio 30, Glucose Level 191H, Calcium Level 8.3L, Corrected Calcium 9.3, Phosphorus Level 3.6, Magnesium Level 1.7, Total Bilirubin 0.3, Aspartate Amino Transf (AST/SGOT) 16, Alanine Aminotransferase (ALT/SGPT) 15, Alkaline Phosphatase 68, Total Protein 6.4, Albumin 2.8L 06/20/22 11:02: Glucometer 292H 06/20/22 16:49: Glucometer 312H 06/20/22 20:32: Glucometer 352H 06/21/22 05:06: Glucometer 127H 06/21/22 05:20: White Blood Count 15.0H, Red Blood Count 2.78L, Hemoglobin 8.0L, Hematocrit 25L, Mean Corpuscular Volume 89, Mean Corpuscular Hemoglobin 29, Mean Corpuscular Hemoglobin Concent 32, Red Cell Distribution Width 14.4, Platelet Count 473H, Mean Platelet Volume 10.9, Immature Granulocyte % (Auto) 3, Neutrophils (%) (Auto) 86H, Lymphocytes (%) (Auto) 6L, Monocytes (%) (Auto) 4, Eosinophils (%) (Auto) 0, Basophils (%) (Auto) 0, Neutrophils # (Auto) 12.9H, Lymphocytes # (Auto) 0.9L, Monocytes # (Auto) 0.6, Eosinophils # (Auto) 0.0, Basophils # (Auto) 0.0, Immature Granulocyte # (Auto) 0.5H, Neutrophils % (Manual) 83, Lymphocytes % (Manual) 11, Monocytes % (Manual) 4, Myelocytes % 1, Nucleated Red Blood Cells 2, Atypical Lymphocytes 1, Polychromasia SLIGHT, Anisocytosis SLIGHT, [place] Cells SLIGHT, Elliptocytes SLIGHT, Sodium Level 134L, Potassium Level 5.2H, Chloride Level 107, Carbon Dioxide Level 18L, Anion Gap 9, Blood Urea Nitrogen 63H, Creatinine 1.98H, Estimat Glomerular Filtration Rate 36, BUN/Creatinine Ratio 32, Glucose Level 125H, Calcium Level 8.0L, Corrected Calcium 8.9, Magnesium Level 1.6, Total Bilirubin 0.2, Aspartate Amino Transf (AST/SGOT) 13, Alanine Aminotransferase (ALT/SGPT) 12, Alkaline Phosphatase 72, Total Protein 6.2L, Albumin 2.9L 06/21/22 11:08: Glucometer 228H 06/21/22 16:31: Glucometer 403*H 06/21/22 20:14: Glucometer 326H 06/22/22 05:25: White Blood Count 15.1H, Red Blood Count 2.89L, Hemoglobin 8.4L, Hematocrit 26L, Mean Corpuscular Volume 89, Mean Corpuscular Hemoglobin 29, Mean Corpuscular Hemoglobin Concent 33, Red Cell Distribution Width 14.5, Platelet Count 522H, Mean Platelet Volume 10.7, Immature Granulocyte % (Auto) 3, Neutrophils (%) (Auto) 82H, Lymphocytes (%) (Auto) 7L, Monocytes (%) (Auto) 9, Eosinophils (%) (Auto) 0, Basophils (%) (Auto) 0, Neutrophils # (Auto) 12.4H, Lymphocytes # (Auto) 1.1, Monocytes # (Auto) 1.3H, Eosinophils # (Auto) 0.0, Basophils # (Auto) 0.0, Immature Granulocyte # (Auto) 0.4H, Sodium Level 134L, Potassium Level 4.7, Chloride Level 107, Carbon Dioxide Level 18L, Anion Gap 9, Blood Urea Nitrogen 69H, Creatinine 2.05H, Estimat Glomerular Filtration Rate 34, BUN/Creatinine Ratio 34, Glucose Level 213H, Calcium Level 7.8L, Corrected Calcium 8.8, Magnesium Level 1.6, Total Bilirubin 0.3, Aspartate Amino Transf (AST/SGOT) 14, Alanine Aminotransferase (ALT/SGPT) 13, Alkaline Phosphatase 68, Total Protein 6.1L, Albumin 2.8L 06/22/22 11:26: Glucometer 279H 06/22/22 16:10: Glucometer 242H 06/22/22 20:48: Glucometer 391H 06/23/22 04:55: White Blood Count 13.6H, Red Blood Count 2.84L, Hemoglobin 8.1L, Hematocrit 25L, Mean Corpuscular Volume 89, Mean Corpuscular Hemoglobin 29, Mean Corpuscular Hemoglobin Concent 32, Red Cell Distribution Width 15.1H, Platelet Count 497H, Mean Platelet Volume 10.4, Immature Granulocyte % (Auto) 4, Neutrophils (%) (Aut o) 75, Lymphocytes (%) (Auto) 12, Monocytes (%) (Auto) 9, Eosinophils (%) (Auto) 1, Basophils (%) (Auto) 0, Neutrophils # (Auto) 10.1H, Lymphocytes # (Auto) 1.6, Monocytes # (Auto) 1.3H, Eosinophils # (Auto) 0.1, Basophils # (Auto) 0.0, Immature Granulocyte # (Auto) 0.5H, Sodium Level 136, Potassium Level 4.5, Chloride Level 108H, Carbon Dioxide Level 19L, Anion Gap 9, Blood Urea Nitrogen 71H, Creatinine 1.86H, Estimat Glomerular Filtration Rate 38, BUN/Creatinine Ratio 38, Glucose Level 168H, Calcium Level 7.8L, Corrected Calcium 8.8, Magnesium Level 1.6, Total Bilirubin 0.3, Aspartate Amino Transf (AST/SGOT) 11, Alanine Aminotransferase (ALT/SGPT) 11, Alkaline Phosphatase 65, Total Protein 5.7L, Albumin 2.7L 06/23/22 11:14: Glucometer 222H 06/23/22 15:53: Glucometer 285H 06/23/22 20:34: Glucometer 110 06/24/22 04:46: Glucometer 184H 06/24/22 05:35: White Blood Count 16.9H, Red Blood Count 2.99L, Hemoglobin 8.6L, Hematocrit 27L, Mean Corpuscular Volume 91, Mean Corpuscular Hemoglobin 29, Mean Corpuscular Hemoglobin Concent 32, Red Cell Distribution Width 15.6H, Platelet Count 508H, Mean Platelet Volume 10.8, Immature Granulocyte % (Auto) 2, Neutrophils (%) (Auto) 81H, Lymphocytes (%) (Auto) 8L, Monocytes (%) (Auto) 8, Eosinophils (%) (Auto) 2, Basophils (%) (Auto) 0, Neutrophils # (Auto) 13.7H, Lymphocytes # (Auto) 1.3, Monocytes # (Auto) 1.4H, Eosinophils # (Auto) 0.3, Basophils # (Auto) 0.0, Immature Granulocyte # (Auto) 0.3H, Sodium Level 138, Potassium Level 4.3, Chloride Level 109H, Carbon Dioxide Level 21, Anion Gap 8, Blood Urea Nitrogen 57H, Creatinine 1.67H, Estimat Glomerular Filtration Rate 44, BUN/Creatinine Ratio 34, Glucose Level 264H, Calcium Level 7.9L, Corrected Calcium 8.9, Magnesium Level 1.5L, Total Bilirubin 0.3, Aspartate Amino Transf (AST/SGOT) 13, Alanine Aminotransferase (ALT/SGPT) 11, Alkaline Phosphatase 69, Total Protein 5.6L, Albumin 2.7L 06/24/22 10:30: Glucometer 296H 06/24/22 15:21: Glucometer 241H 06/24/22 20:18: Glucometer 279H 06/25/22 04:59: Glucometer 291H 06/25/22 06:00: White Blood Count 16.0H, Red Blood Count 2.98L, Hemoglobin 8.6L, Hematocrit 27L, Mean Corpuscular Volume 91, Mean Corpuscular Hemoglobin 29, Mean Corpuscular Hemoglobin Concent 32, Red Cell Distribution Width 15.9H, Platelet Count 442H, Mean Platelet Volume 10.9, Immature Granulocyte % (Auto) 1, Neutrophils (%) (Auto) 84H, Lymphocytes (%) (Auto) 6L, Monocytes (%) (Auto) 7, Eosinophils (%) (Auto) 1, Basophils (%) (Auto) 0, Neutrophils # (Auto) 13.5H, Lymphocytes # (Auto) 1.0, Monocytes # (Auto) 1.2H, Eosinophils # (Auto) 0.2, Basophils # (Auto) 0.0, Immature Granulocyte # (Auto) 0.2H, Sodium Level 139, Potassium Level 4.4, Chloride Level 109H, Carbon Dioxide Level 22, Anion Gap 8, Blood Urea Nitrogen 48H, Creatinine 1.65H, Estimat Glomerular Filtration Rate 44, BUN/Creatinine Ratio 29, Glucose Level 342H, Calcium Level 7.9L, Corrected Ca lcium 9.0, Magnesium Level 1.5L, Total Bilirubin 0.3, Aspartate Amino Transf (AST/SGOT) 10, Alanine Aminotransferase (ALT/SGPT) 12, Alkaline Phosphatase 74, Total Protein 5.4L, Albumin 2.6L 06/25/22 11:10: Glucometer 435*H Microbiology 06/18/22 MRSA Screen - Final, Complete MRSA not isolated Pending Labs Microbiology Date/Time Source Procedure Growth Status 06/18/22 22:20 Nasal MRSA Screen - Final MRSA not isolated Complete Laboratory Tests 06/18/22 23:35: White Blood Count 10.3, Red Blood Count 2.69, Hemoglobin 7.6, Hematocrit 24, Mean Corpuscular Volume 90, Mean Corpuscular Hemoglobin 28, Mean Corpuscular Hemoglobin Concent 31, Red Cell Distribution Width 14.3, Platelet Count 311, Mean Platelet Volume 11.5, Immature Granulocyte % (Auto) 1, Neutrophils (%) (Auto) 77, Lymphocytes (%) (Auto) 10, Monocytes (%) (Auto) 11, Eosinophils (%) (Auto) 1, Basophils (%) (Auto) 0, Neutrophils # (Auto) 7.9, Lymphocytes # (Auto) 1.0, Monocytes # (Auto) 1.1, Eosinophils # (Auto) 0.1, Basophils # (Auto) 0.0, Immature Granulocyte # (Auto) 0.1, Sodium Level 135, Potassium Level 4.7, Chloride Level 109, Carbon Dioxide Level 18, Anion Gap 8, Blood Urea Nitrogen 51, Creatinine 1.84, Estimat Glomerular Filtration Rate 39, BUN/Creatinine Ratio 28, Glucose Level 204, Calcium Level 8.1, Corrected Calcium 9.1, Total Bilirubin 0.3, Aspartate Amino Transf (AST/SGOT) 17, Alanine Aminotransferase (ALT/SGPT) 15, Alkaline Phosphatase 64, B-Type Natriuretic Peptide 720.6, Total Protein 6.0, Albumin 2.7 06/19/22 06:30: White Blood Count 11.0, Red Blood Count 2.97, Hemoglobin 8.5, Hematocrit 27, Mean Corpuscular Volume 91, Mean Corpuscular Hemoglobin 29, Mean Corpuscular Hemoglobin Concent 32, Red Cell Distribution Width 14.1, Platelet Count 369, Mean Platelet Volume 11.3, Immature Granulocyte % (Auto) 1, Neutrophils (%) (Auto) 92, Lymphocytes (%) (Auto) 5, Monocytes (%) (Auto) 2, Eosinophils (%) (Auto) 0, Basophils (%) (Auto) 0, Neutrophils # (Auto) 10.1, Lymphocytes # (Auto) 0.5, Monocytes # (Auto) 0.2, Eosinophils # (Auto) 0.0, Basophils # (Auto) 0.0, Immature Granulocyte # (Auto) 0.2, Sodium Level 134, Potassium Level 5.0, Chloride Level 109, Carbon Dioxide Level 17, Anion Gap 8, Blood Urea Nitrogen 50, Creatinine 1.79, Estimat Glomerular Filtration Rate 40, BUN/Creatinine Ratio 28, Glucose Level 214, Calcium Level 8.3, Corrected Calcium 9.2, Total Bilirubin 0.3, Aspartate Amino Transf (AST/SGOT) 17, Alanine Aminotransferase (ALT/SGPT) 16, Alkaline Phosphatase 71, Total Protein 6.7, Albumin 2.9, Phosphorus Level 3.8, Magnesium Level 1.6 06/19/22 06:34: Glucometer 197 06/19/22 10:39: Glucometer 321 06/19/22 16:11: Glucometer 424 06/19/22 19:40: Glucometer 418 06/20/22 03:24: Blood Gas Puncture Site R RAD, Blood Gas Patient Temperature 36.5, Arterial Blood pH 7.32, Arterial Blood Partial Pressure CO2 36, Arterial Blood Partial Pressure O2 39, Arterial Blood HCO3 18, Arterial Blood Total CO2 19.6, Arterial Blood Oxygen Saturation 63, Arterial Blood Base Excess -6.6, Carlo Test YES-POS, Blood Gas Ventilator Setting NO, Blood Gas Inspired Oxygen 4L 06/20/22 04:20: White Blood Count 13.2, Red Blood Count 2.83, Hemoglobin 8.2, Hematocrit 25, Mean Corpuscular Volume 88, Mean Corpuscular Hemoglobin 29, Mean Corpuscular Hemoglobin Concent 33, Red Cell Distribution Width 14.2, Platelet Count 451, Mean Platelet Volume 11.5, Immature Granulocyte % (Auto) 2, Neutrophils (%) ( Auto) 82, Lymphocytes (%) (Auto) 7, Monocytes (%) (Auto) 9, Eosinophils (%) (Auto) 0, Basophils (%) (Auto) 0, Neutrophils # (Auto) 10.9, Lymphocytes # (Auto) 0.9, Monocytes # (Auto) 1.1, Eosinophils # (Auto) 0.0, Basophils # (Auto) 0.0, Immature Granulocyte # (Auto) 0.3, Percent Immature Platelet Fraction 3.1, Sodium Level 134, Potassium Level 5.2, Chloride Level 109, Carbon Dioxide Level 14, Anion Gap 11, Blood Urea Nitrogen 60, Creatinine 1.99, Estimat Glomerular Filtration Rate 35, BUN/Creatinine Ratio 30, Glucose Level 191, Calcium Level 8.3, Corrected Calcium 9.3, Phosphorus Level 3.6, Magnesium Level 1.7, Total Bilirubin 0.3, Aspartate Amino Transf (AST/SGOT) 16, Alanine Aminotransferase (ALT/SGPT) 15, Alkaline Phosphatase 68, Total Protein 6.4, Albumin 2.8 06/20/22 11:02: Glucometer 292 06/20/22 16:49: Glucometer 312 06/20/22 20:32: Glucometer 352 06/21/22 05:06: Glucometer 127 06/21/22 05:20: White Blood Count 15.0, Red Blood Count 2.78, Hemoglobin 8.0, Hematocrit 25, Mean Corpuscular Volume 89, Mean Corpuscular Hemoglobin 29, Mean Corpuscular Hemoglobin Concent 32, Red Cell Distribution Width 14.4, Platelet Count 473, Mean Platelet Volume 10.9, Immature Granulocyte % (Auto) 3, Neutrophils (%) (Auto) 86, Lymphocytes (%) (Auto) 6, Monocytes (%) (Auto) 4, Eosinophils (%) (Auto) 0, Basophils (%) (Auto) 0, Neutrophils # (Auto) 12.9, Lymphocytes # (Auto) 0.9, Monocytes # (Auto) 0.6, Eosinophils # (Auto) 0.0, Basophils # (Auto) 0.0, Immature Granulocyte # (Auto) 0.5, Neutrophils % (Manual) 83, Lymphocytes % (Manual) 11, Monocytes % (Manual) 4, Myelocytes % 1, Nucleated Red Blood Cells 2, Atypical Lymphocytes 1, Polychromasia SLIGHT, Anisocytosis SLIGHT, [place] Cells SLIGHT, Elliptocytes SLIGHT, Sodium Level 134, Potassium Level 5.2, Chloride Level 107, Carbon Dioxide Level 18, Anion Gap 9, Blood Urea Nitrogen 63, Creatinine 1.98, Estimat Glomerular Filtration Rate 36, BUN/Creatinine Ratio 32, Glucose Level 125, Calcium Level 8.0, Corrected Calcium 8.9, Magnesium Level 1.6, Total Bilirubin 0.2, Aspartate Amino Transf (AST/SGOT) 13, Alanine Aminotransferase (ALT/SGPT) 12, Alkaline Phosphatase 72, Total Protein 6.2, Albumin 2.9 06/21/22 11:08: Glucometer 228 06/21/22 16:31: Glucometer 403 06/21/22 20:14: Glucometer 326 06/22/22 05:25: White Blood Count 15.1, Red Blood Count 2.89, Hemoglobin 8.4, Hematocrit 26, Mean Corpuscular Volume 89, Mean Corpuscular Hemoglobin 29, Mean Corpuscular Hemoglobin Concent 33, Red Cell Distribution Width 14.5, Platelet Count 522, Mean Platelet Volume 10.7, Immature Granulocyte % (Auto) 3, Neutrophils (%) (Auto) 82, Lymphocytes (%) (Auto) 7, Monocytes (%) (Auto) 9, Eosinophils (%) (Auto) 0, Basophils (%) (Auto) 0, Neutrophils # (Auto) 12.4, Lymphocytes # (Auto) 1.1, Monocytes # (Auto) 1.3, Eosinophils # (Auto) 0.0, Basophils # (Auto) 0.0, Immature Granulocyte # (Auto) 0.4, Sodium Level 134, Potassium Level 4.7, Chloride Level 107, Carbon Dioxide Level 18, Anion Gap 9, Blood Urea Nitrogen 69, Creatinine 2.05, Estimat Glomerular Filtration Rate 34, BUN/Creatinine Ratio 34, Glucose Level 213, Calcium Level 7.8, Corrected Calcium 8.8, Magnesium Level 1.6, Total Bilirubin 0.3, Aspartate Amino Transf (AST/SGOT) 14, Alanine Aminotransferase (ALT/SGPT) 13, Alkaline Phosphatase 68, Total Protein 6.1, Albumin 2.8 06/22/22 11:26: Glucometer 279 06/22/22 16:10: Glucometer 242 06/22/22 20:48: Glucometer 391 06/23/22 04:55: White Blood Count 13.6, Red Blood Count 2.84, Hemoglobin 8.1, Hematocrit 25, Mean Corpuscular Volume 89, Mean Corpuscular Hemoglobin 29, Mean Corpuscular Hemoglobin Concent 32, Red Cell Distribution Width 15.1, Platelet Count 497, Mean Platelet Volume 10.4, Immature Granulocyte % (Auto) 4, Neutrophils (%) (Auto) 75, Lymphocytes (%) (Auto) 12, Monocytes (%) (Auto) 9, Eosinophils (%) (Auto) 1, Basophils (%) (Auto) 0, Neutrophils # (Auto) 10.1, Lymphocytes # (Auto) 1.6, Monocytes # (Auto) 1.3, Eosinophils # (Auto) 0.1, Basophils # (Auto) 0.0, Immature Granulocyte # (Auto) 0.5, Sodium Level 136, Potassium Level 4.5, Chloride Level 108, Carbon Dioxide Level 19, Anion Gap 9, Blood Urea Nitrogen 71, Creatinine 1.86, Estimat Glomerular Filtration Rate 38, BUN/Creatinine Ratio 38, Glucose Level 168, Calcium Level 7.8, Corrected Calcium 8.8, Magnesium Level 1.6, Total Bilirubin 0.3, Aspartate Amino Transf (AST/SGOT) 11, Alanine Aminotransferase (ALT/SGPT) 11, Alkaline Phosphatase 65, Total Protein 5.7, Albumin 2.7 06/23/22 11:14: Glucometer 222 06/23/22 15:53: Glucometer 285 06/23/22 20:34: Glucometer 110 06/24/22 04:46: Glucometer 184 06/24/22 05:35: White Blood Count 16.9, Red Blood Count 2.99, Hemoglobin 8.6, Hematocrit 27, Mean Corpuscular Volume 91, Mean Corpuscular Hemoglobin 29, Mean Corpuscular Hemoglobin Concent 32, Red Cell Distribution Width 15.6, Platelet Count 508, Mean Platelet Volume 10.8, Immature Granulocyte % (Auto) 2, Neutrophils (%) (Auto) 81, Lymphocytes (%) (Auto) 8, Monocytes (%) (Auto) 8, Eosinophils (%) (Auto) 2, Basophils (%) (Auto) 0, Neutrophils # (Auto) 13.7, Lymphocytes # (Auto) 1.3, Monocytes # (Auto) 1.4, Eosinophils # (Auto) 0.3, Basophils # (Auto) 0.0, Immature Granulocyte # (Auto) 0.3, Sodium Level 138, Potassium Level 4.3, Chloride Level 109, Carbon Dioxide Level 21, Anion Gap 8, Blood Urea Nitrogen 57, Creatinine 1.67, Estimat Glomerular Filtration Rate 44, BUN/Creatinine Ratio 34, Glucose Level 264, Calcium Level 7.9, Corrected Calcium 8.9, Magnesium Level 1.5, Total Bilirubin 0.3, Aspartate Amino Transf (AST/SGOT) 13, Alanine Aminotransferase (ALT/SGPT) 11, Alkaline Phosphatase 69, Total Protein 5.6, Albumin 2.7 06/24/22 10:30: Glucometer 296 06/24/22 15:21: Glucometer 241 06/24/22 20:18: Glucometer 279 06/25/22 04:59: Glucometer 291 06/25/22 06:00: White Blood Count 16.0, Red Blood Count 2.98, Hemoglobin 8.6, Hematocrit 27, Mean Corpuscular Volume 91, Mean Corpuscular Hemoglobin 29, Mean Corpuscular Hemoglobin Concent 32, Red Cell Distribution Width 15.9, Platelet Count 442, Mean Platelet Volume 10.9, Immature Granulocyte % (Auto) 1, Neutrophils (%) (Auto) 84, Lymphocytes (%) (Auto) 6, Monocytes (%) (Auto) 7, Eosinophils (%) (Auto) 1, Basophils (%) (Auto) 0, Neutrophils # (Auto) 13.5, Lymphocytes # (Auto) 1.0, Monocytes # (Auto) 1.2, Eosinophils # (Auto) 0.2, Basophils # (Auto) 0.0, Immature Granulocyte # (Auto) 0.2, Sodium Level 139, Potassium Level 4.4, Chloride Level 109, Carbon Dioxide Level 22, Anion Gap 8, Blood Urea Nitrogen 48, Creatinine 1.65, Estimat Glomerular Filtration Rate 44, BUN/Creatinine Ratio 29, Glucose Level 342, Calcium Level 7.9, Corrected Calcium 9.0, Magnesium Level 1.5, Total Bilirubin 0.3, Aspartate Amino Transf (AST/SGOT) 10, Alanine Aminotransferase (ALT/SGPT) 12, Alkaline Phosphatase 74, Total Protein 5.4, Albumin 2.6 06/25/22 11:10: Glucometer 435 Discharge Home Medications: Active Scripts Active Vitamin B-12 (Cyanocobalamin (Vitamin B-12)) 1,000 Mcg Tablet 1,000 Mcg PO DAILY@0700 30 Days Novolog (Insulin Aspart) 100 Unit/Ml Susp 0 Unit SC ACHS 30 Days ssi a Stool Softener-Laxative Tablet (Sennosides/Docusate Sodium) 8.6 Mg-50 Mg Tablet 1 Ea PO BID 30 Days Sodium Bicarbonate 650 Mg Tablet 1,300 Mg PO BID 30 Days Mucinex (Guaifenesin) 600 Mg Tab.er.12h 600 Mg PO BID 30 Days Oxyir Tablet (Oxycodone HCl) 5 Mg Tab 5 Mg PO Q4HR PRN 30 Days Amlodipine Besylate 5 Mg Tablet 10 Mg PO DAILY 30 Days Clopidogrel (Clopidogrel Bisulfate) 75 Mg Tablet 75 Mg PO DAILY 30 Days Xarelto Tablet (Rivaroxaban) 15 Mg Tablet 15 Mg PO DAILY@1700 30 Days Levemir Flextouch (Insulin Detemir) 100 Unit/Ml (3 Ml) Insuln.pen 10 Unit SQ BID PRN 30 Days Reported Neurontin (Gabapentin) 300 Mg Capsule 300 Mg PO BID Atorvastatin Calcium 20 Mg Tablet 20 Mg PO DAILY Diltiazem 24Hr Cd (Diltiazem HCl) 300 Mg Cap.er.24h 300 Mg PO DAILY Brimonidine Tartrate 0.2 % Btl 1 Drop OD BID Pantoprazole Sodium 40 Mg Tablet.dr 40 Mg PO BID Latanoprost 0.005% Eye Drop (Latanoprost/Pf) 0.005 % Drops 1 Drop OU HS Cosopt Eye Drops (Dorzolamide HCl/Timolol Maleat) 22.3 Mg-6.8 Mg/Ml Drops 1 Drops OU BID Instructions to patient/family Please see electronic discharge instructions given to patient. NATHALIA ENNIS DO Jun 25, 2022 05:57
[2022-06-25 06:10] LABS: BASOPHILS % (AUTO) 0 % (0-10); EOSINOPHILS # (AUTO) 0.2 10^3/uL (0.0-0.3); EOSINOPHILS % (AUTO) 1 % (0-10); HEMATOCRIT 27 % (40-54); HEMOGLOBIN 8.6 g/dL (13.3-17.7); LYMPHOCYTES % (AUTO) 6 % (12-44); MEAN CORPUSCULAR HEMOGLOBIN 29 pg (25-34); MEAN CORPUSCULAR HGB CONC 32 g/dL (32-36); MEAN CORPUSCULAR VOLUME 91 fL (80-99); MEAN PLATELET VOLUME 10.9 fL (9.0-12.2); MONOCYTES # (AUTO) 1.2 10^3/uL (0.0-1.0); MONOCYTES % (AUTO) 7 % (0-12); NEUTROPHILS # (AUTO) 13.5 10^3/uL (1.8-7.8); NEUTROPHILS % (AUTO) 84 % (42-75); PLATELET COUNT 442 10^3/uL (130-400)
[2022-06-25 06:19] LABS: ALBUMIN 2.6 GM/DL (3.2-4.5); POTASSIUM 4.4 MMOL/L (3.6-5.0)
[2022-06-25 06:20] LABS: CALCIUM 7.9 MG/DL (8.5-10.1)
[2022-06-25 06:22] LABS: TOTAL PROTEIN 5.4 GM/DL (6.4-8.2)
[2022-06-25 06:23] LABS: BILIRUBIN,TOTAL 0.3 MG/DL (0.1-1.0)
[2022-06-25 06:25] LABS: CREATININE SERUM 1.65 MG/DL (0.60-1.30)
[2022-06-25 06:28] LABS: MAGNESIUM 1.5 MG/DL (1.6-2.4)
[2022-06-25 07:51] VITALS: BP 161/76
[2022-06-25] MEDS: DORZOLAMIDE/TIMOLOL (COSOPT) 2-0.68% 10 ML BTL OU SCH (09:03)
[2022-06-25] MEDS: BRIMONIDINE 0.2% (ALPHAGAN) OPHTH SOLN 5 ML BTL OD SCH (09:03)
[2022-06-25] MEDS: guaiFENesin (MUCINEX) 600 MG TAB PO SCH (09:04)
[2022-06-25] MEDS: GABAPENTIN 300 MG (NEURONTIN) CAP PO SCH (09:04)
[2022-06-25] MEDS: CLOPIDOGREL 75 MG (PLAVIX) TABLET PO SCH (09:04)
[2022-06-25] MEDS: SENNOSIDES 8.6 MG (SENOKOT) TAB PO SCH (09:04)
[2022-06-25] MEDS: SODIUM BICARBONATE 650 MG TABLET PO SCH (09:04)
[2022-06-25] MEDS: SENNA W/DOCUSATE (SENOKOT S) TABLET PO SCH (09:04)
[2022-06-25] MEDS: amLODIPine 5 MG (NORVASC) TAB PO SCH (09:04)
[2022-06-25] MEDS: inSUlin (REGULAR) HUMAN 1 UNIT/0.01 ML (CHARGE PER UNIT) SC PRN (11:29)
--- NOTE | 2022-06-25 11:43 | Progress Note ---
LETTY ALEMAN 06/25/22 1143: Progress Note Hospital Course: Manuel Cochran, goes by Татьяна, is a 72yo M who was admitted to the [facility] 4th floor 06/13/22 from [facility] with a chief complaint of malaise/myalgia, sore throat, and back pain. Татьяна was initially intended to be brought to the inpatient rehab unit for S/P lumbar surgery done in [place], but prior to discharge he tested positive for Covid. He was then brought into room 433 to be quarantined, and continually monitored. On talking with patient he was fatigued and oriented x3 but very frustrated, he hasn't had much education and in conversation was mildly obtuse. Multiple times in conversation patient appeared to almost fall asleep and start snoring. He did not appear to be toxic, and denied any c/o SOB, CP, fevers, chills, or naseua. He remained quarantined where he had very limited mobility due to the severity of his back pain that he often rated as an 8/10, this caused him to have several instances where he wet the bed adding to his frustration, he initially had a fever despite denying any, which went down to NL on 06/15/22, his lungs continued to sound congested and for pneumonia PPx he was given Abx. Anemia also was a concern where Hgb was around 7.6, so Iron and B12 were administered. His mood gradually improved but he had frustrations with his foods temperature and would call his girlfriend Opal to help calm him down. It was planned to move him to the IRF of [facility], where he would remain in quarentine until he met his 10 day requirement, while still working with OT/PT to help alleviate pain and improve debility. After a couple days in rehab татьяна continually required further assistance in breathing, he became more complicated and fell into respiratory distress. He was then moved to ICU room 2, and placed on more intensive respiratory treatment where his O2 stats normalized. After stabilizing the pt was then taken back to the fourth floor where he was placed in isolation in room 422, he recovered well from his respiratory ailments but remained a complicated case do to his own cognitive inabilities, his compliance will remain an issue throughtout his recovery, but he has requested he be transfered [place] and brought to a swing-bed at their hospital. He is scheduled for DC today 06/25/22 where he will be removed from his isolation and will finish his recovery in [place]. SHERINE ENNIS DO 06/26/22 0507: Supervisory-Addendum Brief Verification & Attestation Participated in pt care: history, MDM, physical Personally performed: exam, history, MDM, supervision of care Care discussed with: Medical Student Procedures: n/a Results interpretation: Verified all documentation Verification and Attestation of Medical Student E/M Service A medical student performed and documented this service in my presence. I reviewed and verified all information documented by the medical student and made modifications to such information, when appropriate. I personally performed the physical exam and medical decision making. Sherine Ennis, Jun 26, 2022,05:06 LETTY ALEMAN Jun 25, 2022 11:43 SHERINE ENNIS DO Jun 26, 2022 05:07
[2022-06-25 14:31] VITALS: BP 161/76
== END 2022-06-25 14:33 | disposition swing bed (61) | DRG 177 ==
LOC: ICU 20:37 → 4TH 06-20 15:30
PROVIDERS: ADMIT Internal Medicine; ATTEND Internal Medicine
PROC: 8E0ZXY6 Isolation (ICD-10-PCS; principal; 2022-06-19)
PROC: 5A09357 Assistance with Respiratory Ventilation, Less than 24 Consecutive Hours, Continuous Positive Airway Pressure (ICD-10-PCS; 2022-06-19)
PROC: 5A0935A Assistance with Respiratory Ventilation, Less than 24 Consecutive Hours, High Flow/Velocity Cannula (ICD-10-PCS; 2022-06-19)
DX: U07.1 COVID-19 (principal); J12.82 Pneumonia due to coronavirus disease 2019; J15.9 Unspecified bacterial pneumonia; J96.21 Acute and chronic respiratory failure with hypoxia; J96.22 Acute and chronic respiratory failure with hypercapnia; N17.9 Acute kidney failure, unspecified; E87.1 Hypo-osmolality and hyponatremia; E87.20 Acidosis, unspecified; E11.21 Type 2 diabetes mellitus with diabetic nephropathy; E11.319 Type 2 diabetes mellitus with unspecified diabetic retinopathy without macular edema; E11.22 Type 2 diabetes mellitus with diabetic chronic kidney disease; H54.3 Unqualified visual loss, both eyes; D64.9 Anemia, unspecified; E11.51 Type 2 diabetes mellitus with diabetic peripheral angiopathy without gangrene; M79.10 Myalgia, unspecified site; R53.81 Other malaise; I12.9 Hypertensive chronic kidney disease with stage 1 through stage 4 chronic kidney disease, or unspecified chronic kidney disease; I25.2 Old myocardial infarction; I25.10 Atherosclerotic heart disease of native coronary artery without angina pectoris; K21.9 Gastro-esophageal reflux disease without esophagitis; F32.A Depression, unspecified; Z95.5 Presence of coronary angioplasty implant and graft; E66.9 Obesity, unspecified; Z95.0 Presence of cardiac pacemaker; I48.0 Paroxysmal atrial fibrillation; Z79.01 Long term (current) use of anticoagulants; K59.00 Constipation, unspecified; E11.65 Type 2 diabetes mellitus with hyperglycemia; Z87.891 Personal history of nicotine dependence; E87.5 Hyperkalemia; E78.2 Mixed hyperlipidemia; N18.32 Chronic kidney disease, stage 3b
CPT/HCPCS: 36415; 71045; 80053; 82805; 82947; 83735; 83880; 84100; 85007; 85025; 85027; 87081; 93005; 94640; 94660; 94760